=== PATIENT | male | born 1960 | race Caucasian/White ===

== ENCOUNTER 2020-06-27 01:47 | Outpatient (CLI) | payer BC, SELFPAY ==
[2020-06-28 12:53] LABS: COVID-19 RT-PCR UVMMC Result Negative (Negative)
== END 2020-06-27 01:48 | disposition home or self-care (01) ==
LOC: LBO 01:49
DX: Z20.822 Contact with and (suspected) exposure to COVID-19 (principal)
CPT/HCPCS: U0003

== ENCOUNTER 2021-04-24 03:08 | Outpatient (CLI) | payer BC, SELFPAY ==
[2021-04-24 10:15] LABS: ALT 30 U/L (16-63); AST 22 U/L (15-37); Albumin 3.3 g/dL (3.4-5.0); Alkaline Phosphatase 81 U/L (46-116); Anion Gap 13.6 mmol/L (3-11); BUN 11 mg/dL (7-18); Bilirubin, Total 0.6 mg/dL (0.2-1.0); CO2 25.4 mmol/L (21.0-32.0); CREATININE 0.8 mg/dL (0.70-1.30); Calcium 8.5 mg/dL (8.5-10.1); Calculated LDL 54 mg/dL (<100); Chloride 101 mmol/L (98-107); Cholesterol 121 mg/dL (<200); Glucose 101 mg/dL (74-106); HDL Cholesterol 55 mg/dL (40-60); Potassium 3.8 mmol/L (3.5-5.1); Sodium 140 mmol/L (136-145); Total Protein 7.2 g/dL (6.4-8.2); Triglyceride 61 mg/dL (<150)
== END 2021-04-24 03:09 | disposition home or self-care (01) ==
LOC: LBO 03:09
DX: Z13.220 Encounter for screening for lipoid disorders (principal); Z00.00 Encounter for general adult medical examination without abnormal findings
CPT/HCPCS: 36415; 80053; 80061

== ENCOUNTER 2022-03-10 11:21 | Day surgery (SDC) | payer BC, SELFPAY ==
--- NOTE | 2022-03-09 21:08 | W.PM.DSUDISC ---
Date of service: 03/10/22 Time of Service: 13:32 Discharge Plan Disposition Patient Disposition: Home Condition: Good Discharge Details Reason For Visit: Screening colonoscopy Attending Provider: Damion Mcwilliams Primary Care Provider: Melvin Weldon Home Meds and New Rx's Prescriptions: Discontinued bisacodyl [Dulcolax (bisacodyl)] 5 mg tablet,delayed release (DR/EC) 5 mg PO ONCE Qty: 4 0RF Rx Instructions: Take according to provider's instructions for colonoscopy prep. polyethylene glycol 3350 17 gram/dose powder 17 g PO ONCE Qty: 238 0RF Rx Instructions: To be taken as directed by prescriber's office for colonoscopy prep. No Action No Known Home Meds Discharge Instructions Additional Instructions: 1. If tolerated, consume a soft, low fiber diet for 1-2 days. 2[address] Do not drive, drink alcohol, operate machinery, make critical decisions, or do activities that require coordination or balance for 24 hours. 3. Because air was put into your colon during the procedure, expelling air from your rectum (passing gas or farting) is normal. 4. You may not have a bowel movement for 1-3 days because of the colonoscopy prep. This is normal. 5. Go directly to the emergency room if you notice any of the following: Develop chills (warm to touch), or if you have a thermometer and your temperature is above 101 Difficulty breathing or difficultly swallowing Persistent vomiting Severe abdominal pain, other than gas cramps Severe chest pain Black, tarry stools Any bleeding ? exceeding one tablespoon 6. Call your physician if the site where your intravenous was started becomes red, swollen, painful, and warm to touch. 7. Your physician has reviewed your pre-procedure medications. Please continue to take those medications as previously ordered. You will be given specific information/education regarding any changes to your medications before leaving. Activity:: Activity as Tolerated Diet:: As Tolerated Discharge Orders Discharge Orders: Discharge Order (Routine); Ordered 03/09/22 Ordered By: Damion Mcwilliams DS: Diagnosis Discharge Diagnosis (1) Colon cancer screening: Status: Acute Asessment and Plan: Your colonoscopy was normal. I recommend a follow-up colonoscopy in 5 years because of the family history of colon cancer.
--- NOTE | 2022-03-09 21:12 | COLE_ITS ---
Date of service: 03/10/22 Time of Service: 13:33 Colonoscopy Report Date of procedure: 03/10/22 Pre-op diagnosis general: screening colonoscopy Post-op diagnosis procedure note: same Procedure: Colonoscopy Surgeon: Damion Mcwilliams Anesthesia Type: General:No Airway Estimated blood loss (mL): 0 Pathology: none sent Complications: None Disposition: same day Indications: Warren is a 61-year-old male whose father was diagnosed with colon cancer. He is here for his first screening colonoscopy. Prep: Miralax/Dulcolax Procedure Start Time: 13:08 Procedure End Time: 13:20 Retraction Time: 9 Findings: Normal colonoscopy Procedure Description: After the induction of monitored anesthetic care, and with the patient in left lateral decubitus position, I began by performing an external anorectal exam.? Perineum and skin were normal, as was the anal verge.? There was no evidence of external hemorrhoids.? Next, I performed a digital rectal exam.? I did not appreciate any abnormal findings.? Next, I advanced a colonoscope into the re ctal vault.? I performed retroflexion.? There were mild grade 1 internal hemorrhoids.? Using insufflation, I then advanced the colonoscope beyond the rectal folds and into the sigmoid colon before advancing towards the cecum.? The quality of the prep was excellent.? The scope was noted to be in the cecum by identification of the ileocecal valve and appendiceal orifice.? I then began withdrawing the colonoscope using repeated irrigation as necessary for full evaluation of the colonic mucosa. ?Once the scope was withdrawn to the level of the rectum, great care was taken to examine portions of the rectal folds.? I did not see any evidence of any colon polyps or any other abnormalities. Finally, the scope was withdrawn and the patient was brought to the same-day surgery recovery unit as the anesthetic wore off. ?The findings and instructions were shared with the patient prior to discharge. Based on his first-degree relative with colon cancer, I recommend a follow-up colonoscopy in 5 years.
[2022-03-10 12:19] VITALS: BP 138/75; PULSE 94; RESP 16; TEMP 36.4; O2SAT 97
[2022-03-10] MEDS: Lactated Ringers 1,000 ML 80 ML IV (12:50)
--- NOTE | 2022-03-10 12:56 | W.ANESPRE ---
General Info Date of Service Date Performed: 03/10/22 Height: 5 ft 8 in Weight: 74.7 kg Body Mass Index (BMI): 25.0 Surgical Procedure: Operation Date: 03/10/22 12:50 Proposed Procedure Side Surgeon makayla Mcwilliams MD Meds Allergies and Home Medications Allergies Allergy/AdvReac Type Severity Reaction Status Date / Time Penicillins Allergy Intermediate Other (See Verified 03/10/22 12:17 Comment) Home Medication Medication Instructions Recorded Unknown [No Known Home Meds] 03/10/22 Current Visit Medications: Current Medications Generic Name Dose Route Start Last Admin Trade Name Freq PRN Reason Stop Dose Admin Hyoscyamine Sulfate 0.125 mg 03/09/22 21:15 Hyoscyamine 0.125 Mg Sl/Oral/Chew SL DIRECTED PRN Ringer's Solution 1,000 mls @ 80 mls/hr 03/10/22 06:00 03/10/22 12:50 IV 04/08/22 23:59 80 mls/hr INFUSION LILIAM Administration IV Miscellaneous Supplies 1 each 03/10/22 06:00 Iv Access IV 04/08/22 23:59 DIRECTED LILIAM Ondansetron HCl 4 mg 03/09/22 21:15 Ondansetron 4 Mg/2 Ml Vial IVP Q4H PRN PRN Nausea / Vomiting Sodium Chloride 0 ml 03/10/22 06:00 Normal Saline Flush 10 Ml Syr IV 04/08/22 23:59 PRN PRN Sodium Chloride 0 ml 03/10/22 06:00 Normal Saline 10 Ml Vial IJ 04/08/22 23:59 DIRECTED PRN Sterile Water 0 ml 03/10/22 06:00 Water,Injection,Sterile 10 Ml Vial IJ 04/08/22 23:59 DIRECTED PRN PFSH Active Problems Active Problems: Problem Status Onset Code Annual physical exam Z00.00 Screening cholesterol level Z13.220 Colon cancer screening Z12.11 Psoriasis L40.9 Nicotine dependence F17.200 Impacted cerumen of left ear H61.22 Allergic rhinitis J30.9 Tobacco use disorder F17.200 Psoriasis 10/21/15 L40.9 Family history of colon cancer Z80.0 Medical History Medical History Impacted cerumen of right ear (07/25/16) Psoriasis Tobacco Smoking/Tobacco Use Status: Current every day Tobacco Type: cigarettes Alcohol Alcohol Intake: current Alcohol intake frequency: 0-2 drinks per day Alcohol type: hard liquor Substance Use Substance use: Never Substance use type: does not use Vital Signs and Lab Results Vital Signs Most Recent Vital Signs in EMR: Most Recent Vital Signs Temp Pulse Resp BP Pulse Ox 36.4 C L 94 H 16 138/75 97 03/10/22 12:19 03/10/22 12:19 03/10/22 12:19 03/10/22 12:19 03/10/22 12:19 Lab Results Blood Type / Crossmatch: No Data to Display Complete Blood Count: No Data to Display Complete Metabolic Panel: No Data to Display Liver Function Panel: No Data to Display Coagulation Panel: No Data to Display Cardiac Panel: No Data to Display Arterial Blood Gas: No Data to Display Venous Blood Gas: No Data to Display Pancreas Panel: No Data to Display Thyroid Panel: No Data to Display Infectious Disease: No Data to Display Blood Cultures: No Data to Display Toxicology Panel: No Data to Display Anesthesia Assessment and Plan Anesthesia History Personal History: No History of General Anesthesia Family History: No Family History of Anesthesia Complications Exercise Tolerance Exercise Tolerance: Metabolic Equivalents>4 Pertinent Negatives Pertinent Negatives: No Symptoms of GERD, No Major Cardiovascular Symptoms or Complaints, No Major Pulmonary Symptoms or Complaints and No History of CVA/TIA Cardiac & Pulmonary Exam Cardiac Exam: Normal S1/S2 Heart Sounds Pulmonary Exam: Clear Bilateral Breath Sounds Implantable Cardiac Device Does patient have a Pacemaker or an ICD?: No Airway Exam Known Difficult Airway: No Mallampati Class: 2 Mouth Opening: Normal (> 3cm) Thyromental Distance: Greater than 3 cm Neck Range of Motion: Full ROM Neck Circumference: Normal Teeth Condition: Normal Dentition ASA Classification ASA Score: ASA 2 Emergency Case?: No NPO Status NPO Status: NPO Clears >2 hours, Solids >8 hours Anesthesia Plan Resuscitation Status: Full Code Anesthesia Technique: General Anesthesia Airway Planned: Natural Airway Monitors Used: Standard Monitors
[2022-03-10 12:58] VITALS: BMI 25.0
[2022-03-10 13:30] VITALS: BP 133/80; PULSE 90; RESP 16; TEMP 36.1; O2SAT 99
--- NOTE | 2022-03-10 13:30 | W.ANESPOSTOP ---
Postoperative Evaluation Date, Time and Location Date Performed: 03/10/22 Time Performed: 13:31 Patient Location: Day Surgery Unit Vital Signs Most Recent Imported Vital Signs: Most Recent Vital Signs Temp Pulse Resp BP Pulse Ox 36.4 C L 94 H 16 138/75 97 03/10/22 12:19 03/10/22 12:19 03/10/22 12:19 03/10/22 12:19 03/10/22 12:19 Most Recent Manually Entered Vital Signs: Adult Blood Pressure: 133/60 Heart Rate: 89 Respirations: 12 Oxygen Saturation (%): 98 Temperature (C): 36.4 C Pain Score (0-10 Scale): 0 Pain Score Most Recent Pain Score: Most Recent Pain Score Pain Level 0 03/10/22 12:19 Assessment Mental Status: Awake (Alert & Oriented to Patient Baseline) Airway and Respiratory Function: Patent airway with normal (patient baseline) respiratory exam Cardiovascular Function: Hemodynamically Stable Hydration Status: Adequately Hydrated Nausea & Vomiting: No Nausea or Vomiting Pain: Pt. Denies Any Pain Peripheral Nerve Block: Patient did not receive a nerve block
[2022-03-10 13:31] VITALS: BP 133/60; PULSE 89; RESP 12; TEMPC 36.4; O2SAT 98
[2022-03-10 14:00] VITALS: BP 133/71; PULSE 79; RESP 16; TEMP 36.3; O2SAT 98
== END 2022-03-10 14:08 | disposition home or self-care (01) ==
LOC: SUR 11:21
PROVIDERS: PCP Nurse Practitioner Family; Visit Provider Surgery
PROC: 0DJD8ZZ Inspection of Lower Intestinal Tract, Via Natural or Artificial Opening Endoscopic (ICD-10-PCS; CPT 45378; principal; 2022-03-10 12:45)
DX: Z12.11 Encounter for screening for malignant neoplasm of colon (principal); Z80.0 Family history of malignant neoplasm of digestive organs
CPT/HCPCS: 45378

== ENCOUNTER 2023-05-26 04:44 | Outpatient (CLI) | payer BC, SELFPAY ==
[2023-05-28 11:22] LABS: TB Interpretation Negative (Negative)
== END 2023-05-26 04:45 | disposition home or self-care (01) ==
PROVIDERS: PCP Nurse Practitioner Family; Visit Provider Dermatology
DX: L40.0 Psoriasis vulgaris (principal); Z79.899 Other long term (current) drug therapy; Z11.1 Encounter for screening for respiratory tuberculosis
CPT/HCPCS: 36415; 86480

== ENCOUNTER 2024-02-08 11:04 | Outpatient (CLI) | payer BC, SELFPAY ==
[2024-02-08 10:02] LABS: Abs Immature Grans 0.04 10^3/uL (0.0-0.06); HCT 40.2 % (40.0-50.0); MCH 31.7 pg (27.0-33.0); MCHC 32.3 % (32.0-36.0); MCV 98 fL (80-95); MPV 9.3 fL (8.0-11.0); RDW 13.8 % (11.8-14.1); RDW-SD 49.8 fL; WBC 7.22 10^3/uL (4.4-10.8)
[2024-02-08 10:36] LABS: Absolute Lymphocyte Count 1.23 10^3/uL (1.2-3.4); Absolute Neutrophil Count 4.69 10^3/uL (1.2-6.7); Atypical Lymphocytes % 0 %; Diff Comment Manual Differential
[2024-02-08 10:37] LABS: Platelet Count 83 10^3/uL (130-400)
[2024-02-08 10:43] LABS: D-Dimer 616 ng/mlFEU (<500)
== END 2024-02-08 11:05 | disposition home or self-care (01) ==
LOC: LBO 11:04
PROVIDERS: PCP Nurse Practitioner Family; Visit Provider Nurse Practitioner Family
DX: M79.89 Other specified soft tissue disorders (principal)
CPT/HCPCS: 36415; 85025; 85379

== ENCOUNTER 2024-02-23 10:27 | Outpatient (CLI) | payer BC, SELFPAY ==
[2024-02-23 09:31] LABS: Abs Immature Grans 0.02 10^3/uL (0.0-0.06); Absolute Basophil Count 0.05 10^3/uL (0.0-0.2); Absolute Eosinophil Count 0.12 10^3/uL (0.0-0.7); Absolute Lymphocyte Count 1.24 10^3/uL (1.2-3.4); Absolute Monocyte Count 0.94 10^3/uL (0.1-0.8); Absolute Neutrophil Count 2.76 10^3/uL (1.2-6.7); Eosinophils % 2.3 %; HGB 12.5 g/dL (13.5-17.5); Immature Grans % 0.4 %; Lymphocytes % 24.2 %; MCHC 31.3 % (32.0-36.0); MCV 99 fL (80-95); MPV 9.1 fL (8.0-11.0); Monocytes % 18.3 %; Neutrophils % 53.8 %; Platelet Count 129 10^3/uL (130-400); RBC 4.03 10^6/uL (4.36-5.78); RDW 14.4 % (11.8-14.1); RDW-SD 52.7 fL; WBC 5.13 10^3/uL (4.4-10.8)
== END 2024-02-23 10:28 | disposition home or self-care (01) ==
LOC: LBO 10:27
PROVIDERS: PCP Nurse Practitioner Family; Visit Provider Nurse Practitioner Family
DX: M79.89 Other specified soft tissue disorders (principal)
CPT/HCPCS: 36415; 85025

== ENCOUNTER 2024-03-27 13:08 | Outpatient (CLI) | payer BC, SELFPAY ==
--- NOTE | 2024-03-27 13:00 | RT.EKG_ITS ---
APPROVED REPORT Exam: Resting ECG Reason for Exam: sob, Patient Location: O HR:96 bpm ECG Measurements Heart Rate 96 AXIS GA 171 P 74 QRSd 102 QRS 39 QT 355 T 60 QTc 449 Conclusion Sinus rhythm...normal P axis, V-rate 50- 99 Probable left atrial enlargement...P >50mS, <-0.10mV V1 Otherwise normal ECG
== END 2024-03-27 13:09 | disposition home or self-care (01) ==
PROVIDERS: PCP Nurse Practitioner Family; Visit Provider Nurse Practitioner Family
DX: R06.02 Shortness of breath (principal)
CPT/HCPCS: 93010

== ENCOUNTER 2024-03-27 13:54 | Outpatient (CLI) | payer BC, SELFPAY ==
[2024-03-27 14:27] LABS: Abs Immature Grans 0.02 10^3/uL (0.0-0.06); Absolute Basophil Count 0.03 10^3/uL (0.0-0.2); Absolute Eosinophil Count 0.04 10^3/uL (0.0-0.7); Absolute Monocyte Count 0.94 10^3/uL (0.1-0.8); Absolute Neutrophil Count 3.29 10^3/uL (1.2-6.7); Basophils % 0.6 %; Eosinophils % 0.8 %; HCT 39.5 % (40.0-50.0); HGB 12.3 g/dL (13.5-17.5); Immature Grans % 0.4 %; Lymphocytes % 15.6 %; MCH 29.6 pg (27.0-33.0); MCHC 31.1 % (32.0-36.0); MCV 95 fL (80-95); MPV 8.6 fL (8.0-11.0); Monocytes % 18.4 %; Neutrophils % 64.2 %; Platelet Count 109 10^3/uL (130-400); RBC 4.15 10^6/uL (4.36-5.78); RDW 14.2 % (11.8-14.1); RDW-SD 49.1 fL; WBC 5.12 10^3/uL (4.4-10.8)
[2024-03-27 14:47] LABS: Anion Gap 0.3 mmol/L (3-11); BUN 18 mg/dL (7-18); CO2 33.7 mmol/L (21.0-32.0); Calcium 9.5 mg/dL (8.5-10.1); Chloride 105 mmol/L (98-107); Estimated GFR 85.63 (mL/min/1.73m2); Glucose 105 mg/dL (74-106); NT-proBNP 152 pg/mL (<300); Potassium 4.3 mmol/L (3.5-5.1); Sodium 139 mmol/L (136-145)
== END 2024-03-27 13:55 | disposition home or self-care (01) ==
LOC: LBO 13:54
PROVIDERS: PCP Nurse Practitioner Family; Visit Provider Nurse Practitioner Family
DX: R06.00 Dyspnea, unspecified (principal)
CPT/HCPCS: 36415; 80048; 83880; 85025

== ENCOUNTER 2024-03-27 14:58 | Outpatient (CLI) | payer BC, SELFPAY ==
--- NOTE | 2024-03-27 13:15 | DI.RAD_ITS ---
Exam(s) XR CHEST 2V PA LATERAL EXAM: XR CHEST 2V PA LATERAL CLINICAL HISTORY: increased SOB, edema, dyspnea, R06.00 TECHNIQUE: 2D digital imaging was performed of the chest. Two images were obtained. PA and lateral views were obtained. COMPARISON: CR CHEST 2 VIEWS PA,LAT from 09/05/2007 FINDINGS: MEDIASTINUM: Normal. HEART: Normal. PULMONARY VASCULATURE: Normal. LUNGS: The lungs are hyperinflated suggesting underlying COPD. No focal consolidating infiltrates ar e present. PLEURAL SPACE: No pleural effusion or pneumothorax. BONE:Within normal limits for the patient's age. OTHER FINDINGS:Normal. IMPRESSION: No acute pulmonary findings. DATA REPOSITORY: RADIATION DOSE DELIVERED:
== END 2024-03-27 15:18 ==
LOC: DI 14:58
PROVIDERS: PCP Nurse Practitioner Family; Visit Provider Nurse Practitioner Family
DX: R06.00 Dyspnea, unspecified (principal)
CPT/HCPCS: 71046

== ENCOUNTER 2024-04-16 14:51 | Emergency (ER) | payer BC, SELFPAY ==
[2024-04-16] VITALS (7 sets, daily range): BP systolic 172; BP diastolic 73; PULSE 89–99; RESP 16; TEMP 36.6; O2SAT 88–94
--- NOTE | 2024-04-16 15:15 | ED.GENADUL_ITS ---
Discharge Plan Disposition Patient Disposition: Home Condition: Stable Discharge Details Clinical Impression: Hematuria, Cellulitis of leg, right Primary Care Provider: Melvin Weldon ED Provider: Martin Aquino Home Meds and New Rx's Prescriptions: New prednisone 20 mg tablet 60 mg PO DAILY 5 Days Qty: 15 0RF clindamycin HCl 150 mg capsule 450 mg PO TID 7 Days Qty: 63 0RF Continued sildenafil [Viagra] 50 mg tablet 50 mg PO DAILY PRN (Reason: sexual activity) Qty: 10 0RF Rx Instructions: administer 30 minutes to 4 hours before activity Humira 40 mg/0.8 mL syringe kit 40 mg subcut Q2W albuterol sulfate 90 mcg/actuation HFA aerosol inhaler 2 inh inhalation Q6H PRN (Reason: shortness of breath or wheezing) Qty: 18 0RF Discharge Instructions Additional Instructions: You are being treated for a leg infection. He also had blood in your urine. Follow-up as scheduled with your PCP on Wednesday. You should have a follow-up urinalysis and if you continue to have blood in your urine you should discuss being referred to urologist If you feel more ill, have severe worsening pain or high fevers return to the emergency department for reevaluation HPI General Mode of arrival: ambulatory . Date/Time Provider Initiated Documentation: 04/16/24 14:53 . Limitations to Documentation: no limitations . Information obtained by: patient . History of Present Illness 63 year old M presents to the emergency department with the chief complaint of right leg swelling,redness, described as moderate, Patient started experiencing this day(s) (1) and it has been constant. No relieving factors improve symptom(s), No exacerbating factors reported . Patient notes denies fever/chills and shortness of breath. Patient did receive the following t reatments prior to arrival, none Related Data Home Medications ?Medication ?Instructions ?Recorded ?Confirmed adalimumab 40 mg/0.8 mL 40 mg subcut Q2W 01/15/23 04/16/24 subcutaneous syringe kit (Humira) sildenafil 50 mg tablet (Viagra) 50 mg PO DAILY PRN sexual activity 05/19/23 04/16/24 #10 tabs albuterol sulfate 90 mcg/actuation 2 inh inhalation Q6H PRN shortness 03/27/24 04/16/24 aerosol inhaler of breath or wheezing #18 grams clindamycin HCl 150 mg capsule 450 mg (3 x 150 mg) PO TID 7 days 04/16/24 #63 caps prednisone 20 mg tablet 60 mg (3 x 20 mg) PO DAILY 5 days 04/16/24 #15 tabs Previous Rx's ?Medication ?Instructions ?Recorded sildenafil 50 mg tablet (Viagra) 50 mg PO DAILY PRN sexual activity 05/19/23 #10 tabs albuterol sulfate 90 mcg/actuation 2 inh inhalation Q6H PRN shortness 03/27/24 aerosol inhaler of breath or wheezing #18 grams clindamycin HCl 150 mg capsule 450 mg (3 x 150 mg) PO TID 7 days 04/16/24 #63 caps prednisone 20 mg tablet 60 mg (3 x 20 mg) PO DAILY 5 days 04/16/24 #15 tabs Allergies Allergy/AdvReac Type Severity Reaction Status Date / Time Penicillins Allergy Intermediate Other (See Verified 04/16/24 14:58 Comment) General Stated Complaint: Cellulitis ROMELIA: 3 Review of Systems All systems reviewed & are unremarkable except as noted in HPI and below Constitutional Constitutional: Denies chills, Denies fever(s) and Denies weakness Cardiovascular Cardiovascular: Denies chest pain and Denies dyspnea Respiratory Respiratory: Denies cough and Denies dyspnea Gastrointestinal Gastrointestinal: Denies abdominal pain, Denies nausea and Denies vomiting Integumentary/Breasts Skin/Breast: Reports rash Neurologic Neurologic: Denies weakness Exam Const General: no acute distress Orientation: alert [facility] Head: normal to inspection Ears: external ears normal General nose exam: external nose normal Mouth: moist mucous membranes Eyes General: appearance normal, both eyes and all related structures Neck Neck: normal visual inspection Resp Effort & Inspection: normal respiratory effort and able to speak in complete sentences Cardio Rate: regular rate Skin General skin exam: no rashes or lesions noted and erythema Neuro General: patient alert and patient oriented x3 Extrem General: full ROM and no calf tenderness bilaterally Psych Mental Status: mental status grossly normal Course Vital Signs Vital signs: Vital Signs Temperature 36.6 C 04/16/24 14:59 Pulse 95 H 04/16/24 14:59 Respiratory Rate 16 04/16/24 14:59 Blood Pressure 172/73 H 04/16/24 14:59 Pulse Oximetry 88 L 04/16/24 14:59 Temperature 36.6 C 04/16/24 14:59 Temperature Source Oral 04/16/24 14:59 Pulse 95 H 04/16/24 14:59 Respiratory Rate 16 04/16/24 14:59 Blood Pressure 172/73 H 04/16/24 14:59 Pulse Oximetry 88 L 04/16/24 14:59 Pain Level 7 04/16/24 14:59 Medical Decision Making 63-year-old male with a history of psoriasis on Humira comes in with right lower leg redness and swelling. He says he was treated for something similar in January, had a negative DVT study at that time and he states he was placed on antibiotics and steroids which resolved the issue. The leg started swelling and having redness yesterday. He denies any fevers or severe pain in his right lower extremity distal to the knee is. Swollen. There is no crepitus or tenderness. He does have some scabs that he is not sure how they occurred. It is warm on the anterior part of the leg compared to the left. He has no calf tenderness. He has intact distal sensation. I suspect he does have a cellulitis in his likely from scabs he has on his leg. I advised he should try and protect his legs more to prevent this from happening. Given the negative DVT study in January with similar leg findings I doubt DVT and do not feel repeat DVT study indicated. In triage he was noted to be 88% but he denies any shortness of breath and is 94% on my exam and has clear lung sounds do not feel any lung imaging indicated. I will start him on Augmentin and prednisone. He also notes that he been having some intermittent bloody urine, no CVA tenderness or abdominal tenderness. Will check UA. Given lack of flank pain doubt kidney stones. Urine does show hematuria. Patient has no urinary symptoms without UTI. Discussed results with him and he says he has follow-up Wednesday with his PCP. I recommended him to have a repeat UA and if this continues discuss being referred to urology for possible cystoscopy. He is stable for discharge, return precautions given Differential Diagnosis Differential Diagnosis: Cellulitis, UTI Quality:SDOH Health Related Social Needs: Health related social needs details N/A PFSH All Active Problems (Updated 04/16/24 @ 16:05 by Martin Aquino MD) Cellulitis of leg, right (Acute) Hematuria (Acute) Edema (Acute) Dyspnea (Acute) Right leg swelling (Acute) Erectile dysfunction (Acute) Nail dystrophy (Acute) Pincer nail deformity (Acute) Annual physical exam (Acute) Screening cholesterol level (Acute) Colon cancer screening (Acute) Psoriasis (Chronic) Nicotine dependence (Acute) Impacted cerumen of left ear (Acute) Allergic rhinitis (Acute) Tobacco use disorder (Acute) Psoriasis (Chronic 10/21/15) Family history of colon cancer (Acute) Medical History Psoriasis Impacted cerumen of right ear (10/14/15) Family History Mother Diabetes Father Neoplasm PROSTATE Sister Neoplasm BREAST Daughter No problems noted. 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 Pets and animals: No Sexually active: Yes Do you think of yourself as: straight/heterosexual Current gender identity: male What is your relationship status?: refused to answer How often do you talk on the phone with friends or family?: three or more times per week How often do you get together with friends or relatives?: once per week How often do you attend zoroastrian or christianity services?: decline to answer Do you belong to any clubs or organized social groups?: no Panel score (0-1 are the most socially isolated patients): 1 What type of physical activity do you participate in: none Frequency: does not exercise Jeanna/Yazdanism: None Special jeanna needs: No Seatbelt use: always Helmet use: Yes Helmet use: always Drive intox or ride w/intox crew car driver: No Do you feel safe at home: Yes Additional Social history: lives alone PAWSS Have you Been Recently Intoxicated or Drunk Within the Last 30 days?: No Have you Ever Experienced Previous Episodes of Alcohol Withdrawal?: No Have you ever Experienced Withdrawal Seizures?: No Have you ever Experienced Delirium Tremens(DT)s?: No Have you ever undergone Alcohol Rehabilitation Treatment (i.e, inpt ot outpatient treatment programs)?: No Have you ever Experienced Blackouts?: No Have you ever Combined Alcohol with other Downers within the last 90 days?: No Have you ever Combined Alcohol with any other Substance of Abuse during the last 90 days?: No Positive Blood Alcohol level on Presentation? [PCS.BAL]: No Evidence of Increased Autonomic Activity (i.e. HR>120, tremor, sweating, agitation, nausea)?: No Result: 0
--- OUTSIDE RECORDS SUMMARY | 2024-04-16 15:27 | XMS_ITS | Encounter Summary ---
[place] [address] Care Team Providers Care Production Or Plant Engineer Name Role Phone Melvin De León DNP Primary Care Provider [phone] Encounter Details Date Type Department Care Team (Latest Contact Info) Description 11/12/2023 Travel Social History Tobacco Use Types Packs/Day Years Used Date Smoking Tobacco: Every Day Sex and Gender Information Value Date Recorded Sex Assigned at Not on file Gender Identity Not on file Sexual Orientation Not on file documented as of this encounter Plan of Treatment Upcoming Encounters Date Type Department Care Team (Late st Contact Info) Description 05/19/2024 3:45 PM EST Office Visit Dermatology at [place] [address] [facility] [place] [phone] Jordan Arias MD [address] [facility], [place] [address] documented as of this encounter Visit Diagnoses Not on filedocumented in this encounter Care Teams Production Or Plant Engineer Relationship Specialty Start Date End Date Melvin De León DNP [address] [place] [address] PCP - General Family Medicine 10/29/22 documented as of this encounter
--- OUTSIDE RECORDS SUMMARY | 2024-04-16 15:27 | XMS_ITS | Encounter Summary ---
[place] [address] Care Team Providers Care Experimental Machining Lab Manager Name Role Phone Melvin De León DNP Primary Care Provider [phone] Encounter Details Date Type Department Care Team (Latest Contact Info) Description 01/29/2023 Travel Social History Tobacco Use Types Packs/Day [...] 3:45 PM EST Office Visit Dermatology at [place] [address] [facility] [place] [phone] Jordan Arias MD [address] [facility], [place] [address] documented as of this encounter Visit Diagnoses Not on filedocumented in this encounter Care Teams Experimental Machining Lab Manager Relationship Specialty Start Date End Date Melvin De León DNP [address] [facility] [place] [address] PCP - General Family Medicine 10/29/22 documented as of this encounter
--- OUTSIDE RECORDS SUMMARY | 2024-04-16 15:27 | XMS_ITS | Encounter Summary ---
[place] [address] Care Team Providers Care Business Editor Name Role Phone Melvin De León DNP Primary Care Provider Encounter Details Date Type Department Care Team (Late st Contact Info) Description 11/12/2023 Refill Dermatology at [address] [phone] Mandi Velazquez RN Social History Tobacco Use Types Packs/Day Years [...] 3:45 PM EST Office Visit Dermatology at [address] [phone] Jordan Arias MD [address] [place] [address], [facility] [place], [place] [id number] documented as of this encounter Visit Diagnoses Not on filedocumented in this encounter Care Teams Business Editor Relationship Specialty Start Date End Date Melvin De León DNP [address] [place] [address] [place] [phone] PCP - General Family Medicine 10/29/22 documented as of this encounter
--- OUTSIDE RECORDS SUMMARY | 2024-04-16 15:27 | XMS_ITS | Encounter Summary ---
[place] [address] Care Team Providers Care Commercial Real Estate Attorney Name Role Phone Melvin De León DNP Primary Care Provider Encounter Details Date Type Department Care Team (Late st Contact Info) Description 04/30/2023 Refill Dermatology at [address] [phone] Mandi Velazquez RN Social History [...] 3:45 PM EST Office Visit Dermatology at [address] [phone] Jordan Arias MD [address] [place] [address], [facility] [place], [place] [phone] documented as of this encounter Visit Diagnoses Not on filedocumented in this encounter Care Teams Commercial Real Estate Attorney Relationship Specialty Start Date End Date Melvin De León DNP [address] [place] [address] [place] [phone] PCP - General Family Medicine 10/29/22 documented as of this encounter
--- OUTSIDE RECORDS SUMMARY | 2024-04-16 15:27 | XMS_ITS | Encounter Summary ---
Author Organization [facility] Address [facility] [place] [address] Care Team Providers Care Senior Military Analyst Name Role Phone Melvin De León DNP Primary Care Provider [phone] Reason for Visit * Reason Comments Follow-up Encounter Details Date Type Department Care Team (Late st Contact Info) Description 01/29/2023 4:00 PM EST Office Visit Dermatology at [address] [phone] Jordan Arias MD [address], [place] [address] Psoriasis Social History Tobacco Use Types Packs/Day Years Used Date Smoking Tobacco: Every Day Sex and Gender Information Value Date Recorded Sex Assigned at Not on file Gender Identity Not on file Sexual Orientation Not on file documented as of this encounter Progress Notes * Jordan Arias MD - 01/29/2023 4:00 PM EST Problem: 1. On Humira since October 2022, 3-month check 2. History of psoriasis previously treated with methotrexate 3. History of psoriasiform drug reaction secondary to penicillin 4. History of psoriasis in his mother 5. Resolving acute flare of psoriasis after April 22, 2021 visit 6. Patient currently drinks 3 mixed drinks in the evenings. Warren follows up for 3-month check on his psoriasis. He has been utilizing the Humira. He is on Humira but it is not clearing his psoriasis. He is seen perhaps a 50% improvement. He has not had any injection site reactions fevers or infections. Physical examination reveals a pleasant 62-year-old gentleman who has still has active psoriasis. He has thin plaques widely over his lower back and some excoriated areas on his legs on the anterior shins bilaterally.. His skin is diffusely dry. He states he has been giving himself the Humira and Ireally just every 2-week basis. Assessment and plan: Psoriasis 1. Continue Humira for another 3 months then return to clinic. Renew Humira 40 mg / 0.4 mL citrate free pen inject 1 pen subcutaneously every 14 days. Dispense 2 pens with 3 refills. 2. Continue applications of triamcinolone 0.1% cream applying to affected areas on a twice daily basis. 3. At time of return visit if not seeing significant improvement will consider another dispense 1 pound jar with 2 refills. If not improving at that time would recommend that we consider another biologic. CC: Melvin De León DNP documented in this encounter Plan of Treatment Upcoming Encounters Date Type Department Care Team (Late st Contact Info) Description 05/19/2024 3:45 PM EST Office Visit Dermatology at [place] [address] [place] [address] Jordan Arias MD 580 [facility], [facility] [place] [address] documented as of this encounter Visit Diagnoses Diagnosis Psoriasis Other psoriasis documented in this encounter Care Teams Senior Military Analyst Relationship Specialty Start Date End Date Melvin De León DNP [address] [place] [address] PCP - General Family Medicine 10/29/22 documented as of this encounter
--- OUTSIDE RECORDS SUMMARY | 2024-04-16 15:27 | XMS_ITS | Encounter Summary ---
[place] [address] Care Team Providers Care Manufacturing Weaver Name Role Phone Melvin De León DNP Primary Care Provider [phone] Encounter Details Date Type Department Care Team (Latest Contact Info) Description 04/30/2023 Travel Social History Tobacco Use Types Packs/Day [...] 3:45 PM EST Office Visit Dermatology at [place] 580 [facility] [place] [phone] Jordan Arias MD 580 [facility], [place] [address] documented as of this encounter Visit Diagnoses Not on filedocumented in this encounter Care Teams Manufacturing Weaver Relationship Specialty Start Date End Date Melvin De León DNP [address] [place] [address] PCP - General Family Medicine 10/29/22 documented as of this encounter
--- OUTSIDE RECORDS SUMMARY | 2024-04-16 15:27 | XMS_ITS | Encounter Summary ---
[place] [address] Care Team Providers Care Business Development Recruiter Name Role Phone Melvin De León DNP Primary Care Provider Encounter Details Date Type Department Care Team (Late st Contact Info) Description 11/12/2023 Refill Dermatology at [address] [phone] Mandi Velazquez RN Social History [...] 3:45 PM EST Office Visit Dermatology at [address] [phone] Jordan Arias MD [address] [place] [address], DAVID A DERMATOLOGY [place], [place] [id number] documented as of this encounter Visit Diagnoses Not on filedocumented in this encounter Care Teams Business Development Recruiter Relationship Specialty Start Date End Date Melvin De León DNP [address] [place] [address] [place], [place] [id number] PCP - General Family Medicine 10/29/22 documented as of this encounter
--- OUTSIDE RECORDS SUMMARY | 2024-04-16 15:27 | XMS_ITS | Encounter Summary ---
Author Organization [facility] [place] [address] Care Team Providers Care Fence Setter Name Role Phone Melvin De León DNP Primary Care Provider Encounter Details Date Type Department Care Team (Late Contact Info) Description 11/20/2022 Telephone Dermatology at [address] [phone] Mandi Velazquez RN Social History Tobacco Use Types Packs/Day Years Used Date Smoking Tobacco: Every Day Sex and Gender Information Value Date Recorded Sex Assigned at Not on file Gender Identity Not on file Sexual Orientation Not on file documented as of this encounter Miscellaneous Notes * Telephone Encounter - Mandi Velazquez RN - 11/20/2022 10:33 AM EDT Contacted patient today to inform him that in order for him to obtain a sharps container for his Kortney pens he would need to contact [facility] which is where he obtains his Kortney pens from. Patient provided with [employer] phone number [phone]. Patient stated that he understood and would contact them. documented in this encounter Plan of Treatment Upcoming Encounters Date Type Department Care Team (Late Contact Info) Description 05/19/2024 3:45 PM EST Office Visit Dermatology at [address] [phone] Jordan Arias MD 580 [facility], [place] [address] documented as of this encounter Visit Diagnoses Not on filedocumented in this encounter Care Teams Fence Setter Relationship Specialty Start Date End Date Melvin De León DNP [address] [place] [address] PCP - General Family Medicine 10/29/22 documented as of this encounter
--- OUTSIDE RECORDS SUMMARY | 2024-04-16 15:27 | XMS_ITS | Encounter Summary ---
[place] [address] Care Team Providers Care Community Relations Coordinator Name Role Phone Melvin De León DNP Primary Care Provider [phone] Reason for Visit * Reason Comments Medication Refill Encounter Details Date Type Department Care Team (Late st Contact Info) Description 04/13/2024 Refill Dermatology at [place] 580 [facility] [place] [address] Jordan Arias MD [address], BENNIE A DERMATOLOGY [place], [place] [phone] Social History Tobacco Use Types Packs/Day Years Used Date Smoking Tobacco: Every Day Sex and Gender Information Value Date Recorded Sex Assigned at Not on file Gender Identity Not on file Sexual Orientation Not on file documented as of this encounter Miscellaneous Notes * Telephone Encounter - Mandi Velazquez RN - 04/13/2024 8:53 AM EST Received request from [facility] for Kortney for patient. Contact patient and he stated that he has one pen left and he gave himself an injection on 04/11/2024. He stated he will not have enough of his medication to last him till his follow up appointment. Patient has follow up on 05/19/2024. Prescription Humira Pen 40mg/0.4ml pen injector kit. Inject 1 pen under the skin every 14 days. Dispense 1 kit (2pens) with 1 refill. This will cover the patient until his follow up appointment on 05/19/2024. documented in this encounter Plan of Treatment Upcoming Encounters Date Type Department Care Team (Late st Contact Info) Description 05/19/2024 3:45 PM EST Office Visit Dermatology at [place] [address] [facility] [place] [address] Jordan Arias MD [address], BENNIE Mark [place] [address] documented as of this encounter Visit Diagnoses Not on filedocumented in this encounter Care Teams Community Relations Coordinator Relationship Specialty Start Date End Date Melvin De León DNP [address] [place] [address] PCP - General Family Medicine 10/29/22 documented as of this encounter
--- OUTSIDE RECORDS SUMMARY | 2024-04-16 15:27 | XMS_ITS | Encounter Summary ---
Author Organization [facility] Address [facility] [place] [address] Care Team Providers Care Habilitation Worker Name Role Phone Melvin De León DNP Primary Care Provider [phone] Encounter Details Date Type Department Care Team (Late st Contact Info) Description 04/30/2023 3:45 PM EST Office Visit Dermatology at [address] [place] [phone] Jordan Arias MD [address] [address], [place] [address] Psoriasis Social History Tobacco Use Types Packs/Day Years Used Date Smoking Tobacco: Every Day Sex and Gender Information Value Date Recorded Sex Assigned at Not on file Gender Identity Not on file Sexual Orientation Not on file documented as of this encounter Progress Notes * Jordan Arias MD - 04/30/2023 3:45 PM EST Problem: 1. On Humira since October 2022, 3-month check 2. History of psoriasis previously treated with methotrexate 3. History of psoriasiform drug reaction secondary to penicillin 4. History of psoriasis in his mother 5. Resolving acute flare of psoriasis after April 22, 2021 visit 6. Patient currently drinks 3 mixed drinks in the evenings. Warren follows up for a 3-month check on his psoriasis. He has been doing much better. He continues on Humira injecting it religiously. He is seeing further improvement. Physical examination reveals a pleasant 62-year-old gentleman whose arms chest and back are clear. He still has some dry excoriated patches on the anterior shins bilaterally. However the upper torso is now clear in contrast to his last visit with me again number. Assessment plan: Psoriasis on Humira 1. Continue Humira injecting 40 mg / 0.4 mL citrate free pen subcutaneously once every 14 days. Dispense 2 pens with 5 refills 2. Continue applications of triamcinolone 01% cream apply to affected areas on the shins once twicedaily 3. Encouraged use of emollient therapy such as CeraVe cream for dry skin of the legs. 4. Today we will check TB QuantiFERON alpha test as part of renewing his Humira CC: Melvin De León DNP documented in this encounter Plan of Treatment Upcoming Encounters Date Type Department Care Team (Late st Contact Info) Description 05/19/2024 3:45 PM EST Office Visit Dermatology at [place] [address] [place] [address] Jordan Arias MD 580 [facility], [place] [address] documented as of this encounter Visit Diagnoses Diagnosis Psoriasis Other psoriasis documented in this encounter Care Teams Habilitation Worker Relationship Specialty Start Date End Date Melvin De León DNP [address] [place] [id number] PCP - General Family Medicine 10/29/22 documented as of this encounter
--- OUTSIDE RECORDS SUMMARY | 2024-04-16 15:27 | XMS_ITS | Encounter Summary ---
[place] [address] Care Team Providers Care Director Investment Banking Name Role Phone Melvin De León DNP Primary Care Provider Reason for Visit * Reason Comments Follow-up Encounter Details Date Type Department Care Team (Late st Contact Info) Description 11/12/2023 3:45 PM EDT Office Visit Dermatology at [address] [phone] Jordan Arias MD [address] [address], [place] [address] Psoriasis Social History Tobacco Use Types Packs/Day Years Used Date Smoking Tobacco: Every Day Sex and Gender Information Value Date Recorded Sex Assigned at Not on file Gender Identity Not on file Sexual Orientation Not on file documented as of this encounter Progress Notes * Jordan Arias MD - 11/12/2023 3:45 PM EDT Problem: 1. On Humira since October 2022, 3-month check 2. History of psoriasis previously treated with methotrexate 3. History of psoriasiform drug reaction secondary to penicillin 4. History of psoriasis in his mother 5. Resolving acute flare of psoriasis after April 22, 2021 visit 6. Patient currently drinks 3 mixed drinks in the evenings. Warren follows up for a 6-month check on his psoriasis. He has been doing well. His psoriasis is stable. He continues on Humira injecting it religiously once every 2 weeks into his stomach.. Physical examination reveals a pleasant 63-year-old gentleman whose arms chest and back are clear. He still has some dry excoriated patches on the anterior shins bilaterally. The upper torso is now clear for which he is very grateful. Assessment and plan: Psoriasis on Humira 1. Continue Humira injecting 40 mg / 0.4 mL citrate free pen subcutaneously once every 14 days. Dispense 2 pens with 5 refills 2. Discontinue triamcinolone cream and instead will begin betamethasone dipropionate cream apply once to twice daily to active areas on shins dispense 45 g with 5 refills. 3. Encouraged use of emollient therapy such as CeraVe cream for dry skin of the legs. 4. A TB QuantiFERON test was negative back in May of this year. 5. Return to clinic in 6 months for repeat check. CC: Melvin De León DNP documented in this encounter Plan of Treatment Upcoming Encounters Date Type Department Care Team (Late st Contact Info) Description 05/19/2024 3:45 PM EST Office Visit Dermatology at [place] 580 [facility] [place] [address] Jordan Arias MD 580 [facility], [place] [address] documented as of this encounter Visit Diagnoses Diagnosis Psoriasis Other psoriasis documented in this encounter Care Teams Director Investment Banking Relationship Specialty Start Date End Date Melvin De León DNP [address] [place] [address] PCP - General Family Medicine 10/29/22 documented as of this encounter
--- OUTSIDE RECORDS SUMMARY | 2024-04-16 15:27 | XMS_ITS | Encounter Summary ---
[place] [address] Care Team Providers Care Field Placement Director Name Role Phone Melvin De León DNP Primary Care Provider [phone] Reason for Visit * Reason Comments Prior Authorization Humira (2 PEN 0 40mg /0.4ml PNKT Encounter Details Date Type Department Care Team (Latest Contact Info) Description 10/25/2023 Specialty [place] [phone] Lulu Perez CPHT Started Prior Authorization (adalimumab) for Dermatology Social History Tobacco Use Types Packs/Day Years Used Date Smoking Tobacco: Every Day Sex and Gender Information Value Date Recorded Sex Assigned at Not on file Gender Identity Not on file Sexual Orientation Not on file documented as of this encounter Progress Notes * Lulu Perez CPHT - 10/25/2023 4:36 PM EDT [facility], Medication Prior Authorization Submission Patient: Warren Michael Patient : 1960 Patient Address: [address] [place] [phone] (home) Medication Name: HUMIRA(CF) PEN 40 MG/0.4 ML SUBCUTANEOUS KIT Medication ID: [id number] Subscriber Insurance: [employer] (ADV) Subscriber Insurance Comment: Fax: Physician: CARIDAD LEÓN Physician Comment: Sent Via: [facility] Irby: [id number] Ref/Case/PA#: [id number] Medication Strength Frequency Requested: Humira 40mg/0.4ml, INJECT 1 PEN UNDER THE SKIN EVERY 14 DAYS Qty/Day Supply: 05/19 New Start: Renewal Diagnosis & ICD-10 Code: Psoriasis L40.9 Patient Notified: No Submission Notes: None Lulu Perez CPHT 10/25/23 4:42 PM * Lulu Perez CPHT - 10/25/2023 4:36 PM EDT [facility], Prior Authorization Approval Medication Name: HUMIRA(CF) PEN 40 MG/0.4 ML SUBCUTANEOUS KIT Medication ID: [id number] Approval Dates: 10/25/2023 to 10/23/2024 Insurance requirements/notes: None Other Notes: None Case/Reference #: [id number] Approval notification Received via: Fax Copay: Copay assistance: Copay Notes: Insurance mandated Pharmacy: [facility] Specialty Fillable at [facility]: No Patient Notified: No Pharmacy staff will be reaching out to the patient to inform them of their medication's [facility]. If applicable, a pharmacist will speak with the patient to offer our specialty pharmacy services and to arrange delivery of their medication. Lulu Perez CPHT 10/27/23 8:56 AM documented in this encounter Plan of Treatment Upcoming Encounters Date Type Department Care Team (Late st Contact Info) Description 05/19/2024 3:45 PM EST Office Visit Dermatology at [address] [place] [address] Caridad León MD [address] [facility] [address], [place] [address] documented as of this encounter Visit Diagnoses Diagnosis Psoriasis Other psoriasis documented in this encounter Care Teams Field Placement Director Relationship Specialty Start Date End Date Melvin D eLeón DNP [address] [place] [address] PCP - General Family Medicine 10/29/22 documented as of this encounter
--- OUTSIDE RECORDS SUMMARY | 2024-04-16 15:27 | XMS_ITS | Encounter Summary ---
[place] [address] Care Team Providers Care Software Support Analyst Name Role Phone Melvin De León DNP Primary Care Provider Encounter Details Date Type Department Care Team (Late st Contact Info) Description 01/29/2023 Refill Dermatology at [address] [phone] Mandi Velazquez RN Social History [...] 3:45 PM EST Office Visit Dermatology at [address] [phone] Jordan Arias MD [address] [place] [address], DAVID A DERMATOLOGY [place], [place] [address] documented as of this encounter Visit Diagnoses Not on filedocumented in this encounter Care Teams Software Support Analyst Relationship Specialty Start Date End Date Melvin De León DNP [address] [place] [address] [place], [place] [id number] PCP - General Family Medicine 10/29/22 documented as of this encounter
--- OUTSIDE RECORDS SUMMARY | 2024-04-16 15:27 | XMS_ITS | Clinical Summary ---
Author Organization [facility] Address [facility] [place] [address] Care Team Providers Care Fire Pilot Name Role Phone Melvin De León DNP Primary Care Provider Allergies Active Allergy Reactions Criticality Noted Date Comments Amoxicillin Trihydrate CIS - Hives Amoxicillin-Pot Clavulanate CIS - Hives Penicillins High 09/14/2022 Other Reaction(s): Other (See Comment) Medications Medication Sig Dispensed Refills Start Date End Date Status triamcinolone (Kenalog) 0.1 % Cream Apply thin layer topically to affected areas on a twice daily basis. 453.6 g 2 01/29/2023 Active betamethasone dipropionate (Maxivate) 0.05 % Cream Apply thin layer topically twice daily to active areas on shins. 45 g 5 11/12/2023 Active Humira,CF, Pen 40 mg/0.4 mL Pen Injector Kit INJECT 1 PEN UNDER THE SKIN EVERY 14 DAYS 0.8 mL 1 04/13/2024 Active Active Problems Problem Noted Date Diagnosed Date Psoriasis 10/26/2023 Encounters Date Type Department Care Team Description 04/13/2024 Refill Dermatology at [address] [phone] Jordan Arias MD from Last 3 Months Social History Tobacco Use Types Packs/Day Years Used Date Smoking Tobacco: Every Day Sex and Gender Information Value Date Recorded Sex Assigned at Not on file Gender Identity Not on file Sexual Orientation Not on file Plan of Treatment Upcoming Encounters Date Type Department Care Team (Late st Contact Info) Description 05/19/2024 3:45 PM EST Office Visit Dermatology at [address] [phone] Jordan Arias MD [address], [place] [address] Health Maintenance Due Date Last Done Comments CT Colonography 1960 Colonoscopy 1962 Colorectal Cancer Screening 1960 FIT DNA 1960 FIT 1960 Sigmoidoscopy (10 year) with FIT yearly 1960 Sigmoidoscopy 1960 HIV screen 1980 Hepatitis C Screening 1980 Lipid Screening 1980 Pneumoccocal Vaccine: 50+ (1 of 2 - PCV) 1981 Tetanus/Diphtheria/Pertussis Vaccines (1 - Tdap) 07/25 Zoster vaccine (1 of 2) 2012 Advance Directive 2017 Covid-19 Vaccine (1 - 2023- season) 2023 Influenza (Flu) vaccine (1 o f 1 - Influenza standard series) 11/21/2023 Care Teams Fire Pilot Relationship Specialty Start Date End Date Melvin De León DNP [address] [place] [address] [address] [place], [place] [id number] PCP - General Family Medicine 10/29/22
--- OUTSIDE RECORDS SUMMARY | 2024-04-16 15:27 | XMS_ITS | Encounter Summary ---
[place] [address] Care Team Providers Care Digital Advertising Specialist Name Role Phone Melvin De León DNP Primary Care Provider [phone] Encounter Details Date Type Department Care Team (Late st Contact Info) Description 01/29/2023 Refill Dermatology at [address] [phone] Mandi Velazquez RN Social History [...] 3:45 PM EST Office Visit Dermatology at [address] [phone] Jordan Arias MD [address] [place] [address], DAVID A DERMATOLOGY [place], [place] [id number] documented as of this encounter Visit Diagnoses Not on filedocumented in this encounter Care Teams Digital Advertising Specialist Relationship Specialty Start Date End Date Melvin De León DNP [address] [place] [address] [place], [place] [id number] PCP - General Family Medicine 10/29/22 documented as of this encounter
--- OUTSIDE RECORDS SUMMARY | 2024-04-16 15:27 | XMS_ITS | Encounter Summary ---
[place] [address] Care Team Providers Care Director Perioperative Name Role Phone Melvin De León DNP Primary Care Provider Reason for Visit * Reason Comments Medication Refill Encounter Details Date Type Department Care Team (Late st Contact Info) Description 09/27/2023 Refill Dermatology at [address] [phone] Jordan Arias MD [address] [place] [address], [facility] [place] [address] Social History Tobacco Use Types Packs/Day Years [...] 3:45 PM EST Office Visit Dermatology at [address] [phone] Jordan Arias MD [address] [place] [address], [facility] [place] [address] documented as of this encounter Visit Diagnoses Not on filedocumented in this encounter Care Teams Director Perioperative Relationship Specialty Start Date End Date Melvin De León DNP [address] [place] [phone] PCP - General Family Medicine 10/29/22 documented as of this encounter
--- OUTSIDE RECORDS SUMMARY | 2024-04-16 15:27 | XMS_ITS | Encounter Summary ---
[place] [address] Care Team Providers Care Gate Person Name Role Phone Melvin De León DNP Primary Care Provider Reason for Visit * Reason Comments Medication Refill Encounter Details Date Type Department Care Team (Late st Contact Info) Description 10/25/2023 Refill Dermatology at [address] [phone] Jordan Arias MD [address] [place] [address], [facility] [address] Social History Tobacco Use Types Packs/Day Years [...] 3:45 PM EST Office Visit Dermatology at [address] [phone] Jordan Arias MD [address] [place] [address], [facility] [address] documented as of this encounter Visit Diagnoses Not on filedocumented in this encounter Care Teams Gate Person Relationship Specialty Start Date End Date Melvin De León DNP [address] [place], [place] [id number] PCP - General Family Medicine 10/29/22 documented as of this encounter
--- OUTSIDE RECORDS SUMMARY | 2024-04-16 15:28 | XMS_ITS | Encounter Summary ---
Author Organization Formerly [facility], [facility] Address [facility] [place] [address] Care Team Providers Care Bowling Alley Attendant Name Role Phone Melvin De León DNP Primary Care Provider [phone] Reason for Visit * Reason Comments Psoriasis Encounter Details Date Type Department Care Team (Late st Contact Info) Description 10/29/2022 2:45 PM EDT Office Visit Dermatology at [address] [phone] Jordan Arias MD [address], [place] [address] Psoriasis Social History Tobacco Use Types Packs/Day Years Used Date Smoking Tobacco: Every Day Sex and Gender Information Value Date Recorded Sex Assigned at Not on file Gender Identity Not on file Sexual Orientation Not on file documented as of this encounter Progress Notes * Jordan Arias MD - 10/29/2022 2:45 PM EDT Problem: 1. History of psoriasis previously treated with methotrexate 2. History of psoriasiform drug reaction secondary to penicillin 3. History of psoriasis in his mother 4. Resolving acute flare of psoriasis after April 22, 2021 visit 5. Patient currently drinks 3 mixed drinks in the evenings. Warren follows up because his psoriasis is flaring. He had been on medication until about a year agowhen we tapered him down and off. It flared again a year later starting in May. He is waiting twomonths to get in and see me. Physical examination reveals a pleasant 62-year-old gentleman who has contiguous psoriasis over hisentire lower back from his left to right flank extending onto the buttocks and widely over his lower extremities as well. It is excoriated. It is Assessment plan: Psoriasis 1. Patient is not a good candidate for methotrexate 2. Patient tends to burn easily does not ames, not a good candidate for phototherapy 3. Recommend that we consider advancing to a biologic. Humira is the preferred biologic for this patient 4. Will begin Humira using the 40 mg / 0.4 mL citrate free pen. Inject 80 mg on day 1, 40 mg on day8, then 40 mg every 2 weeks thereafter. 5. For some symptomatic relief of his current itching and burning, begin triamcinolone 0 point percent cream plan diabetes basis to affected areas on back and legs dispense 1 pound jar. 6. Patient will call us when he receives the medications we can demonstrate the appropriate injection technique for Humira. 7. Return to clinic in 3 months for repeat check on his progress. CC: Melvin De León DNP documented in this encounter Plan of Treatment Upcoming Encounters Date Type Department Care Team (Late st Contact Info) Description 05/19/2024 3:45 PM EST Office Visit Dermatology at [place] [address] [place] [address] Jordan Arias MD [address] [facility], [place] [address] documented as of this encounter Visit Diagnoses Diagnosis Psoriasis Other psoriasis documented in this encounter Care Teams Bowling Alley Attendant Relationship Specialty Start Date End Date Melvin De León DNP [address] [place] [address] [place] [address] PCP - General Family Medicine 10/29/22 documented as of this encounter
--- OUTSIDE RECORDS SUMMARY | 2024-04-16 15:28 | XMS_ITS | Encounter Summary ---
[place] [address] Care Team Providers Care Functional Director Name Role Phone Hakan Escobar DO Primary Care Provider [phone] Reason for Visit * Reason Comments Medication Refill Encounter Details Date Type Department Care Team (Late st Contact Info) Description 07/07/2021 Refill Dermatology at [address] [phone] Jordan Arias MD [address] [place] [address], [facility] [place] [address] Social History Tobacco Use Types Packs/Day Years [...] 3:45 PM EST Office Visit Dermatology at [address] [phone] Jordan Arias MD [address] [place] [address], [facility] [place] [address] documented as of this encounter Visit Diagnoses Not on filedocumented in this encounter Care Teams Functional Director Relationship Specialty Start Date End Date Hakan Escobar DO [address] [id number] PCP - General 02/11/10 10/28/22 documented as of this encounter
--- OUTSIDE RECORDS SUMMARY | 2024-04-16 15:28 | XMS_ITS | Encounter Summary ---
Author Organization [facility] Address [address] [place] [address] Care Team Providers Care Mine Superintendent Name Role Phone Unavailable Primary Care Provider Unavailabl e Encounter Details Date Type Department Care Team (Late st Contact Info) Description 05/27/2023 Lab Requisition [facility] Pathology & Laboratory Medicine - [facility] [address] [place] [address] Outr Resulting Lab, Provider Social History Tobacco Use Types Packs/Day Years Used Date Smoking Tobacco: Never Assessed Interpersonal Safety Answer Date Record ed Physically Hurt Never 06/28/2020 Verbally Threaten Not on file 06/28/2020 Sex and Gender Information Value Date Recorded Sex Assigned at Not on file Legal Sex Male 15:05 EDT Gender Identity Not on file Sexual Orientation Not on file documented as of this encounter Plan of Treatment Not on file documented as of this encounter Procedures Procedure Name Priority Date/Time Associated Diagnosis Comments QUANTIFERON MITOGEN (PERFORMABLE) Today 05/26/2023 7:12 EST QUANTIFERON TB2 (PERFORMABLE) Today 05/26/2023 7:12 EST QUANTIFERON TB1 (PERFORMABLE) Today 05/26/2023 7:12 EST QUANTIFERON NIL (PERFORMABLE) Today 05/26/2023 7:12 EST QUANTIFERON INTERPRETATION (PERFORMABLE) Today 05/26/2023 7:12 EST QUANTIFERON TB GOLD PLUS Routine 05/26/2023 7:12 EST documented in this encounter Results * QUANTIFERON INTERPRETATION (PERFORMABLE) (05/26/2023 7:12 EST) Quantiferon Interpretation Negative Negative 05/28/2023 11:16 EST [facility] Comment:No interferon-gamma response to M. tuberculosis antigens was detected. ??Infection with M. tuberculosis is unlikely. A single negative result does not exclude infection with M. tuberculosis. ??In patients at high risk for M. tuberculosis infection, a second test should be considered. TB1 Ag minus Nil 0.00 IU/ml 05/28/19 11:16 EST [facility] TB2 Ag minus Nil 0.00 IU/mL 05/28/19 11:16 EST [facility] Blood VENOUS BLOOD / Unknown 05/26/2023 7:12 EST 05/28/2023 11:00 EST us Provider Outr Resulting Lab IMMUNOLOGY AND SEROL OGY ORDERABLES Final Result Performing Organization Address [facility] de Phone Number [facility] [address] [place] [phone] * QUANTIFERON MITOGEN (PERFORMABLE) (05/26/2023 7:12 EST) Blood VENOUS BLOOD / Unknown 05/26/2023 7:12 EST 05/27/2023 17:27 EST us Provider Outr Resulting Lab IMMUNOLOGY AND SEROL OGY ORDERABLES Final Result Performing Organization Address [facility] de Phone Number [facility] [address] [place] [phone] * QUANTIFERON TB2 (PERFORMABLE) (05/26/2023 7:12 EST) Blood VENOUS BLOOD / Unknown 05/26/2023 7:12 EST 05/27/2023 17:27 EST us Provider Outr Resulting Lab IMMUNOLOGY AND SEROL OGY ORDERABLES Final Result Performing Organization Address [facility] Co de Phone Number [facility] [address] [place] [phone] * QUANTIFERON TB1 (PERFORMABLE) (05/26/2023 7:12 EST) Blood VENOUS BLOOD / Unknown 05/26/2023 7:12 EST 05/27/2023 17:27 EST us Provider Outr Resulting Lab IMMUNOLOGY AND SEROL OGY ORDERABLES Final Result Performing Organization Address [facility] Co de Phone Number [facility] [address] [place], [place] [phone] * QUANTIFERON NIL (PERFORMABLE) (05/26/2023 7:12 EST) Blood VENOUS BLOOD / Unknown 05/26/2023 7:12 EST 05/27/2023 17:27 EST us Provider Outr Resulting Lab IMMUNOLOGY AND SEROL OGY ORDERABLES Final Result Performing Organization Address [facility] Co de Phone Number [facility] [address] [place] [phone] documented in this encounter Visit Diagnoses Not on filedocumented in this encounter
--- OUTSIDE RECORDS SUMMARY | 2024-04-16 15:28 | XMS_ITS | Encounter Summary ---
[place] [address] Care Team Providers Care Grader Operator Name Role Phone Melvin De León DNP Primary Care Provider [phone] Reason for Visit * Reason Comments Prior Authorization Humira Pen-PSOR 80mg /0.8ml &40mg/0.4ml PEN kit Encounter Details Date Type Department Care Team (Late st Contact Info) Description 10/30/2022 Specialty [place] [address] Lulu Perez, SPRAY CREW Social History Tobacco Use Types Packs/Day Years Used Date Smoking Tobacco: Every Day Sex and Gender Information Value Date Recorded Sex Assigned at Not on file Gender Identity Not on file Sexual Orientation Not on file documented as of this encounter Progress Notes * Lulu Perez - 10/30/2022 3:06 PM EDT [facility], Medication Prior Authorization Submission Patient: Warren Michael Patient : 1960 Patient Address: [address] [place] [phone] Phone: [phone] (home) Medication Name: HUMIRA(CF) PEN [id number] HS SUBQ Medication ID: Subscriber Insurance: [employer] (ADV) Subscriber Insurance Comment: Fax: Physician: CARIDAD LEÓN Physician Comment: Sent Via: [facility] Irby: [id number] Ref/Case/PA#: [id number] Medication Strength Frequency Requested: Humira 80mg/0.8ml &40mg/0.4ml, INJECT THE CONTENTS OF 1 PEN (80 MG) SUBCUTANEOUSLY ON DAY 1, THEN INJECT THE CONTENTS OF 1 PEN (40 MG) ON DAY 8, THEN INJECT THE CONTENTS OF 1 PEN (40 MG) EVERY 14 DAYS THEREAFTER. Qty/Day Supply: 06/16 New Start: New to Therapy Diagnosis & ICD-10 Code: Psoriasis L40.9 Patient Notified: No Submission Notes: None Lulu Perez 10/30/22 3:19 PM * Lulu Perez - 10/30/2022 3:06 PM EDT [facility], Prior Authorization Approval Medication Name: HUMIRA(CF) PEN [id number] HS SUBQ Medication ID: Approval Dates: 10/30/2022 to 10/31/2023 Insurance requirements/notes: None Other Notes: None Case/Reference #: PHOEBE # [id number]. Approval notification Received via: Telephone Copay: Copay assistance: Copay Notes: Insurance mandated Pharmacy: [facility] Specialty Fillable at [facility]: No Patient Notified: No Pharmacy staff will be reaching out to the patient to inform them of their medication[facility]. If applicable, a pharmacist will speak with the patient to offer our specialty pharmacy services and to arrange delivery of their medication. Lulu Perez 11/04/22 10:33 AM documented in this encounter Plan of Treatment Upcoming Encounters Date Type Department Care Team (Late st Contact Info) Description 05/19/2024 3:45 PM EST Office Visit Dermatology at [address] [place] [address] Caridad León MD [address] [facility] [address], [place] [address] documented as of this encounter Visit Diagnoses Not on filedocumented in this encounter Care Teams Grader Operator Relationship Specialty Start Date End Date Melvin De León DNP [address] [place] [address] PCP - General Family Medicine 10/29/22 documented as of this encounter
--- OUTSIDE RECORDS SUMMARY | 2024-04-16 15:28 | XMS_ITS | Clinical Summary ---
Author Organization [facility] Address [address] [place] [address] Care Team Providers Care Grout Pump Operator Name Role Phone Unavailable Primary Care Provider Unavailabl e Social History Tobacco Use Types Packs/Day Years Used Date Smoking Tobacco: Never Assessed Interpersonal Safety Answer Date Record ed Physically Hurt Never 06/28/2020 Verbally Threaten Not on file 06/28/2020 Sex and Gender Information Value Date Recorded Sex Assigned at Not on file Legal Sex Male 15:05 EDT Gender Identity Not on file Sexual Orientation Not on file Plan of Treatment Health Maintenance Due Date Last Done Comments Hepatitis C Screen 1960 COVID-19 Vaccine ( season) 2023 RSV Immunization ( o r 60+ Years) (1 - 1-dose 75+ series) 2037
--- OUTSIDE RECORDS SUMMARY | 2024-04-16 15:28 | XMS_ITS | Encounter Summary ---
Author Organization [facility] Address [address] [place] [address] Care Team Providers Care Coal Chute Worker Name Role Phone Unavailable Primary Care Provider Unavailabl e Encounter Details Date Type Department Care Team (Late st Contact Info) Description 06/27/2020 Lab Requisition [facility] Pathology & Laboratory Medicine - [facility] [address] [place] [address] Outr Resulting Lab, Provider Social History Tobacco [...] Procedure Name Priority Date/Time Associated Diagnosis Comments ZZCOVID-19 TEST [facility] PCR Today 06/27/2020 9:59 EDT COVID-19 TESTING Routine 06/27/2020 9:59 EDT documented in this encounter Results * COVID-19 TEST [facility] PCR (06/27/2020 9:59 EDT) Swab ENTIRE NASOPHARYNX / Unknown 06/27/2020 9:59 EDT 06/27/2020 20:09 EDT us Provider Outr Resulting Lab MICROBIOLOGY - GENER AL ORDERABLES Final Result [facility] [address] [place] [address] * COVID-19 TESTING (06/27/2020 9:59 EDT) COVID-19 rt-PCR Result Negative Negative 06/28/2020 12:47 EDT [facility] Comment: This test has not been FDA cleared or approved. This test has been authorized by FDA under an EUA for use by authorized laboratories. This test has been authorized only for detection of nucleic acid from 2019-nCoV, not for any other viruses or pathogens. This test is only authorized for the duration of the declaration that circumstances exist justifying the authorization of emergency use of in vitro diagnostic tests for detection and/or diagnosis of 2019-nCoV under section 564(b)(1) of Act, 21 U.S.C ?? 360bbb-3(b) (1), unless the authorization is terminated or revoked sooner. Negative results do not preclude 2019-nCoV infection and should not be used as the sole basis for treatment or other patient management decisions. Negative results must be combined with clinical observations, patient history, and epidemiological information. Testing was performed using the sapna SARS-CoV-2 assay ([employer] on the Sapna 6800 System Performing Lab Sapna [address] [facility] 06/28/2020 12:47 EDT [facility] Swab 06/27/2020 9:59 EDT 06/27/2020 20:09 EDT us Provider Outr Resulting Lab MICROBIOLOGY - GENER AL ORDERABLES Final Result [facility] [address] [place] [address] documented in this encounter Visit Diagnoses Not on filedocumented in this encounter
--- OUTSIDE RECORDS SUMMARY | 2024-04-16 15:28 | XMS_ITS | Encounter Summary ---
Author Organization [facility] Address [facility] [place] [address] Care Team Providers Care Case Consultant Name Role Phone ShawnHakan duke Primary Care Provider [phone] Encounter Details Date Type Department Care Team (Late st Contact Info) Description 04/22/2021 2:00 PM EST Office Visit Dermatology at [address] [place] [phone] Jordan Arias MD [address], [place] [address] Psoriasis Social History Tobacco Use Types Packs/Day Years Used Date Smoking Tobacco: Every Day Sex and Gender Information Value Date Recorded Sex Assigned at Not on file Gender Identity Not on file Sexual Orientation Not on file documented as of this encounter Progress Notes * Jordan Arias MD - 04/22/2021 2:00 PM EST PROBLEM: 1. History of psoriasis treated with methotrexate 2. History of psoriasiform drug reaction secondary to penicillin. 3. History of psoriasis in his mother. 4. New visit for acute onset dermatitis Warren follows up after last seeing me in 2017. One month ago he suffered an acute flare of his psoriasis and now has just about has 85+ percent coverage of his total body surface. He was seen community clinic at [facility] and given topical triamcinolone cream to use and a tapering course of prednisone.Unfortunately after he ran out of the prednisone he had a renewed flaring of the dermatitis. He reminds me that I treated him in the past with cyclosporine in 2002 but also with methotrexate in 2017,with good results both times. He does drink 3 mixed drinks a night. His blood pressure when checkedwith acuity clinic was 122/74 on April 17. He denies any recent infections, emotional stressors, change in medications. He is seen in consultation today for Clifton Stevens MD Physical examination reveals widespread plaque formation with overlying desquamation and scaling covering his entire back over the buttocks also onto the anterior torso affecting his elbows forearms and legs. Assessment plan: Psoriasis, flaring 1. Begin cyclosporine, modified, 100 mg 1 p.o. twice daily dispense #60 with 0 refills 2. May continue topical triamcinolone cream 3. Recommend that we plan a telephone visit for 1 month. Will attempt to taper patient down off of cyclosporine 4. Due to EtOH intake would avoid methotrexate. 5. If no benefit consider Biologics. CC: Clifton Stevens MD documented in this encounter Plan of Treatment Upcoming Encounters Date Type Department Care Team (Late st Contact Info) Description 05/19/2024 3:45 PM EST Office Visit Dermatology at [place] [address] [place] [address] Jordan Arias MD [address], [place] [address] documented as of this encounter Visit Diagnoses Diagnosis Psoriasis Other psoriasis documented in this encounter Care Teams Case Consultant Relationship Specialty Start Date End Date Hakan Escobar DO [address] [place] [address] PCP - General 02/11/10 10/28/22 documented as of this encounter
--- OUTSIDE RECORDS SUMMARY | 2024-04-16 15:28 | XMS_ITS | Referral Summary ---
Author Organization [facility] Address [address] [place] [address] Care Team Providers Care Hosiery Looper Name Role Phone Unavailable Primary Care Provider [...] Orientation Not on file Plan of Treatment Not on file
--- OUTSIDE RECORDS SUMMARY | 2024-04-16 15:28 | XMS_ITS | Encounter Summary ---
[place] [address] Care Team Providers Care Gas Leak Inspector Helper Name Role Phone Hakan Escobar DO Primary Care Provider [phone] Encounter Details Date Type Department Care Team (Late st Contact Info) Description 05/19/2016 Refill Dermatology at [address] [phone] Nisreen Reyes, AGRICULTURAL SCIENCE PROFESSOR Social History Tobacco Use Types Packs/Day Years [...] 3:45 PM EST Office Visit Dermatology at [address] [phone] Jordan Arias MD [address] [place] [address], DAVID A DERMATOLOGY [place], [place] [phone] documented as of this encounter Visit Diagnoses Not on filedocumented in this encounter Care Teams Gas Leak Inspector Helper Relationship Specialty Start Date End Date Hakan Escobar DO [address] [facility] [address] [place], [place] [address] PCP - General 02/11/10 10/28/22 documented as of this encounter
--- OUTSIDE RECORDS SUMMARY | 2024-04-16 15:28 | XMS_ITS | Encounter Summary ---
[place] [address] Care Team Providers Care Lidar Scientist Name Role Phone Melvin De León DNP Primary Care Provider [phone] Encounter Details Date Type Department Care Team (Late st Contact Info) Description 11/04/2022 Refill Dermatology at [address] [phone] Jordan Arias MD [address] [place] [address], [place] [address] Social History Tobacco Use Types Packs/Day Years [...] 3:45 PM EST Office Visit Dermatology at [address] [phone] Jordan Arias MD [address] [place] [address], [place] [address] documented as of this encounter Visit Diagnoses Not on filedocumented in this encounter Care Teams Lidar Scientist Relationship Specialty Start Date End Date Melvin De León DNP [address] [place] [address] PCP - General Family Medicine 10/29/22 documented as of this encounter
--- OUTSIDE RECORDS SUMMARY | 2024-04-16 15:28 | XMS_ITS | Encounter Summary ---
[place] [address] Care Team Providers Care Neon Molder Name Role Phone ShawnHakan duke Primary Care Provider [phone] Reason for Visit * Reason Comments Skin Check Encounter Details Date Type Department Care Team (Late st Contact Info) Description 04/21/2016 1:45 PM EST Office Visit Dermatology at [address] [place] [phone] Jordan Arias MD [address] [facility], [place] [address] Psoriasis Social History Tobacco Use Types Packs/Day Years Used Date Smoking Tobacco: Every Day Sex and Gender Information Value Date Recorded Sex Assigned at Not on file Gender Identity Not on file Sexual Orientation Not on file documented as of this encounter Progress Notes * Jordan Arias MD - 04/21/2016 1:45 PM EST PROBLEM: 1. Follow up psoriasis. 2. History of psoriasiform drug reaction secondary to penicillin. 3. History of psoriasis in mother. Warren follows up after last being seen in 07/2006. His psoriasis has been pretty much quiescent until just this fall when things were really flaring on the buttocks and on his legs. He was given some betamethasone cream to use, but unfortunately has not been adequate. Patient denies any history of liver disease, hepatitis, jaundice. Physical examination reveals a brown-eyed, dark-haired, 55-year-old gentleman who has very sebaceous complexion. He has large but thin plaque psoriasis on the buttocks and lower back, and smaller, nickel- to dime-sized patches of plaque psoriasis on his legs. Many of these are excoriated. He has some mild involvement on his knees, minimally on his elbows. He has involvement minimally on his ears and postauricular scalp. He does have some pitting of his fingernails. A/P: Psoriasis flare. a. Previously stable for 10 years! b. Patient has access to a tanning bed that his sister has and this would be beneficial for his psoriasis. Encouraged him to use it on a daily basis, slowly increasing his time setting from the assistant banquet manager recommendation as his skin tolerates. He recalls as a teenager tanning well, burning rarely in the summer months. c. Begin also methotrexate 2.5 mg take 6 p.o. q week, #30 dispensed with 1 refill. d. Patient needs to discontinue alcohol while on this medication. He tends to drink about 3 beers a day now, he states. e. Begin also folate 1 p.o. daily every day of the week except the one day he takes the methotrexate, #90 dispensed for a 2-month supply with 3 refills. f. Return to clinic in 1 month for repeat. Check methotrexate labs at that time. Standing orders given for him to have these drawn at [facility]. g. Plan will be to use methotrexate to get him to clear and phototherapy as an adjunct, then taper him down and off of methotrexate and utilize both a tanning bed and summertime sun to keep his psoriasis in remission. I do not plan on long-term methotrexate in this patient. cc: Hakan Escobar DO documented in this encounter Plan of Treatment Upcoming Encounters Date Type Department Care Team (Late st Contact Info) Description 05/19/2024 3:45 PM EST Office Visit Dermatology at [place] [address] [place] [address] Jordan Arias MD [address] [facility], [place] [address] documented as of this encounter Visit Diagnoses Diagnosis Psoriasis Other psoriasis documented in this encounter Care Teams Neon Molder Relationship Specialty Start Date End Date Hakan Escobar DO [address] [place] [address] [address] [place] [address] PCP - General 02/11/10 10/28/22 documented as of this encounter
--- OUTSIDE RECORDS SUMMARY | 2024-04-16 15:28 | XMS_ITS | Encounter Summary ---
Author Organization [facility] [place] [address] Care Team Providers Care Catalyst Unit Operator Name Role Phone Melvin De León DNP Primary Care Provider Encounter Details Date Type Department Care Team (Late st Contact Info) Description 10/29/2022 Refill Dermatology at [address] [phone] Nisreen Reyes LPN Social History Tobacco Use Types Packs/Day Years [...] PM EST Office Visit Dermatology at [address] [phone] Jordan Arias MD [address] [place] [address], [place] A DERMATOLOGY [place], [place] [id number] documented as of this encounter Visit Diagnoses Not on filedocumented in this encounter Care Teams Catalyst Unit Operator Relationship Specialty Start Date End Date Melvin De León DNP [address] [place] [id number] PCP - General Family Medicine 10/29/22 documented as of this encounter
--- OUTSIDE RECORDS SUMMARY | 2024-04-16 15:28 | XMS_ITS | Encounter Summary ---
[place] [address] Care Team Providers Care Polisher And Sander Name Role Phone Hakan Escobar DO Primary Care Provider [phone] Encounter Details Date Type Department Care Team (Late st Contact Info) Description 04/21/2016 Refill Dermatology at [address] [phone] Nisreen Reyes, TRAVEL INSURANCE AGENT Social History Tobacco Use Types Packs/Day Years [...] PM EST Office Visit Dermatology at [address] [phone] Jordan Arias MD [address] [place] [address], DAV[place] A DERMATOLOGY [place], [place] [phone] documented as of this encounter Visit Diagnoses Not on filedocumented in this encounter Care Teams Polisher And Sander Relationship Specialty Start Date End Date Hakan Escobar DO [address] [facility] [place] [address] [place], [place] [address] PCP - General 02/11/10 10/28/22 documented as of this encounter
--- OUTSIDE RECORDS SUMMARY | 2024-04-16 15:28 | XMS_ITS | Encounter Summary ---
[place] [address] Care Team Providers Care Assistant Oceanographer Name Role Phone Hakan Escobar DO Primary Care Provider [phone] Encounter Details Date Type Department Care Team (Late st Contact Info) Description 04/22/2021 Refill Dermatology at [address] [phone] Nisreen Reyes, WOOD MECHANIST Social History Tobacco Use Types Packs/Day Years [...] 3:45 PM EST Office Visit Dermatology at [address] [phone] Jordan Arias MD [address] [place] [address], DAV[place] A DERMATOLOGY [place], [place] [id number] documented as of this encounter Visit Diagnoses Not on filedocumented in this encounter Care Teams Assistant Oceanographer Relationship Specialty Start Date End Date Hakan Escobar DO [address] [facility] 1 [place], [place] [address] PCP - General 02/11/10 10/28/22 documented as of this encounter
--- OUTSIDE RECORDS SUMMARY | 2024-04-16 15:28 | XMS_ITS | Encounter Summary ---
[place] [address] Care Team Providers Care Harbor Pilot Name Role Phone Melvin De León DNP Primary Care Provider [phone] Encounter Details Date Type Department Care Team (Latest Contact Info) Description 11/17/2022 Travel Social History Tobacco Use Types Packs/Day [...] 3:45 PM EST Office Visit Dermatology at [place] [address] [facility] [place] [phone] Jordan Arias MD 580 [facility], [place] [address] documented as of this encounter Visit Diagnoses Not on filedocumented in this encounter Care Teams Harbor Pilot Relationship Specialty Start Date End Date Melvin De León DNP [address] [place] [address] PCP - General Family Medicine 10/29/22 documented as of this encounter
--- OUTSIDE RECORDS SUMMARY | 2024-04-16 15:28 | XMS_ITS ---
[place] [address] Care Team Providers Care Water Reuse Program Manager Name Role Phone Melvin De León DNP Primary Care Provider [phone] Dermatology Status:Ineligible (Enrolling) Start date:10/25/2023 Enrollment reason:Ineligible - Insurance Mandate Current support & services provided:Prior Authorization Management Linked medications:adalimumab (Active) Linked problems:Psoriasis (Active) Continued Care and Services Coordination
--- OUTSIDE RECORDS SUMMARY | 2024-04-16 15:28 | XMS_ITS | Encounter Summary ---
[place] [address] Care Team Providers Care Expediter Service Order Name Role Phone Melvin De León DNP Primary Care Provider [phone] Encounter Details Date Type Department Care Team (Latest Contact Info) Description 10/29/2022 Travel Social History Tobacco Use Types Packs/Day [...] 3:45 PM EST Office Visit Dermatology at [place] [address] [facility] [place] [phone] Jordan Arias MD 580 [facility], [place] [address] documented as of this encounter Visit Diagnoses Not on filedocumented in this encounter Care Teams Expediter Service Order Relationship Specialty Start Date End Date Melvin De León DNP [address] [facility] [place] [address] PCP - General Family Medicine 10/29/22 documented as of this encounter
--- OUTSIDE RECORDS SUMMARY | 2024-04-16 15:28 | XMS_ITS | Encounter Summary ---
[place] [address] Care Team Providers Care Tea Taster Name Role Phone ShawnHakan duke Primary Care Provider [phone] Encounter Details Date Type Department Care Team (Late st Contact Info) Description 05/20/2021 4:30 PM EST TH Visit (TeleHealth) Dermatology at [address] [phone] Jordan Arias MD [address] [facility], [place] [address] Psoriasis Social History Tobacco Use Types Packs/Day Years Used Date Smoking Tobacco: Every Day Sex and Gender Information Value Date Recorded Sex Assigned at Not on file Gender Identity Not on file Sexual Orientation Not on file documented as of this encounter Progress Notes * Jordan Arias MD - 05/20/2021 4:30 PM EST Problem: 1. History of psoriasis treated with methotrexate 2. History of psoriasiform drug reaction secondary to penicillin 3. History of psoriasis in his mother 4. Resolving acute flare of psoriasis after April 22, 2021 visit 5. Patient currently drinks 3 mixed drinks in the evenings. 6. telehealth telephone visit Warren is contacted today utilizing the [employer] telephone platform. I want to follow-up on hisprogress on cyclosporine for his flare of psoriasis. I started him on 100 mg p.o. twice daily of the modified cyclosporine on 12 and has been tolerating this well. He states that his skin is about 90% cleared today. While still erythematous in many areas, the desquamation and scaling previously present over 85% of his total surface body now has almost entirely resolved. He has tolerated the modified cyclosporine well without any side effects. Assessment plan: Psoriasis flare responding to cyclosporine modified 100 mg 1 p.o. twice daily 1. Taper down to two 1 day 100 mg for the next month then discontinue dispense #30 with 0 refills 2. May continue topical triamcinolone cream to any residual areas until remaining rash is entirely clear then discontinue this as well 3. I have asked him to contact us in a month with his progress. 4. I had last seen the patient in 2017 for his last flare and then he was cleared for 5 years untilthis most recent outbreak. I would not recommend ongoing maintenance therapy unless he again beginsto flare. 5. Could consider Biologics and we have obtained a listing of his formulary Biologics with Humira being preferred. CC: Hakan Escobar DO documented in this encounter Plan of Treatment Upcoming Encounters Date Type Department Care Team (Late st Contact Info) Description 05/19/2024 3:45 PM EST Office Visit Dermatology at [place] [address] [facility] [place] [address] Jordan Arias MD [address] [facility], [place] [address] documented as of this encounter Visit Diagnoses Diagnosis Psoriasis Other psoriasis documented in this encounter Care Teams Tea Taster Relationship Specialty Start Date End Date Hakan Escobar DO [facility] [address] [facility] 1 [place] [address] PCP - General 02/11/10 10/28/22 documented as of this encounter
--- OUTSIDE RECORDS SUMMARY | 2024-04-16 15:28 | XMS_ITS | Encounter Summary ---
Author Organization [facility] [place] [address] Care Team Providers Care Technical Writer And Editor Name Role Phone ShawnHakan duke Primary Care Provider [phone] Reason for Visit * Reason Comments Follow-up Encounter Details Date Type Department Care Team (Late st Contact Info) Description 05/19/2016 3:00 PM EST Office Visit Dermatology at [address] [place] [phone] Jordan Arias MD [address] [facility] [address], [place] [address] Psoriasis Social History Tobacco Use Types Packs/Day Years Used Date Smoking Tobacco: Every Day Sex and Gender Information Value Date Recorded Sex Assigned at Not on file Gender Identity Not on file Sexual Orientation Not on file documented as of this encounter Progress Notes * Jordan Arias MD - 05/19/2016 3:00 PM EST PROBLEM: 1. Followup psoriasis status post 1 month of methotrexate. 2. History of psoriasiform drug reaction secondary to penicillin. 3. History of psoriasis in his mother. Warren follows up after last being seen on April 21. His psoriasis is improving slowly but surely. He is much less itchy. He is seeing improvement. He has cut back on his alcohol, drinking, at most, one beer a day he states. He has not had his labs done prior to today's visit. Physical examination reveals a brown eyed and dark haired 55-year-old gentleman whose psoriasis on the arms and legs now is largely resolved. He has a few excoriations, however. He still has a large psoriatic plaque on the lower left back/left flank. But again, the small nickel to dime sized patches of plaque psoriasis on the knees and arms have largely cleared, but the excoriations have still remain. ASSESSMENT AND PLAN: Psoriasis in current flare. a. Previously stable for 10 years! b. Patient has not yet started using the tanning bed his sister has, but I would encourage him to do so. He tends to ames well, burn rarely. c. Continue methotrexate 2.5 mg, taking 6 of these p.o. every week (15 mg), #30 dispensed, and he still has 1 refill left, which will be enough for a 2-month supply. d. Continue limiting beer to 1 a day at most. e. Continue folate 1 p.o. every day of the week except the 1 day he takes the methotrexate. He was given #90 for a 3 month supply with 3 refills on April 21. f. Return to clinic in 2 months for repeat check. Check methotrexate labs in the next day or two. g. Plan will be to use methotrexate to get him clear and phototherapy as an adjunct, and then taper off methotrexate and use tanning/summertime sun to keep his skin in remission. I do not plan on long-term methotrexate in this patient. cc: Hakan Escobar DO. documented in this encounter Plan of Treatment Upcoming Encounters Date Type Department Care Team (Late st Contact Info) Description 05/19/2024 3:45 PM EST Office Visit Dermatology at [place] [address] [place] [address] Jordan Arias MD [address] [facility] [address], [place] [address] documented as of this encounter Visit Diagnoses Diagnosis Psoriasis Other psoriasis documented in this encounter Care Teams Technical Writer And Editor Relationship Specialty Start Date End Date Hakan Escobar DO [address] [address] [place] [address] PCP - General 02/11/10 10/28/22 documented as of this encounter
[2024-04-16] MEDS: predniSONE 20 MG TAB 60 MG PO (15:41)
[2024-04-16] MEDS: Clindamycin 150 MG CAP 450 MG PO (15:41)
[2024-04-16 15:50] LABS: Bilirubin Small (Negative); Blood Large (Negative); Clarity Cloudy (Clear); Glucose Negative (Negative); Ketones Negative (Negative); Leukocyte Esterase Negative (Negative); Nitrite Negative (Negative); Specific Gravity 1.025 (1.005-1.025); pH 6.5 (5-8)
[2024-04-16 15:56] LABS: C & S Indicated? No; RBC >50 HPF (0-2)
[2024-04-16] MEDS: Clindamycin 150 MG CAP, 12 CAPS/BTL 450 MG PO (16:42)
== END 2024-04-16 16:43 | disposition home or self-care (01) ==
LOC: ER 15:26
PROVIDERS: Emergency Provider Emergency Medicine; PCP Nurse Practitioner Family
DX: L03.115 Cellulitis of right lower limb (principal); R31.9 Hematuria, unspecified
CPT/HCPCS: 99283; 81003; 81015; J7512

== ENCOUNTER 2024-04-19 14:09 | Outpatient (REF) | payer BC, SELFPAY ==
[2024-04-19 22:02] LABS: Bilirubin Negative (Negative); Blood Large (Negative); Clarity Clear (Clear); Glucose Negative (Negative); Ketones Negative (Negative); Leukocyte Esterase Negative (Negative); Nitrite Negative (Negative); Specific Gravity 1.025 (1.005-1.025); Urobilinogen 0.2 mg/dL (Up to 0.2); pH 5.5 (5-8)
[2024-04-19 22:13] LABS: Bacteria Negative HPF (Negative); C & S Indicated? No/Sq. Contamination; Casts Negative LPF (Negative); Crystals Negative HPF (Negative); Epithelial Cells Many HPF (Negative); Mucus Heavy (Negative); RBC 20-50 HPF (0-2)
== END 2024-04-19 14:10 | disposition home or self-care (01) ==
LOC: LBN 14:09
PROVIDERS: PCP Nurse Practitioner Family; Visit Provider Nurse Practitioner Family
DX: R31.9 Hematuria, unspecified (principal)
CPT/HCPCS: 81003; 81015

== ENCOUNTER 2024-04-28 01:27 | Outpatient (CLI) | payer BC, SELFPAY ==
[2024-04-28] MEDS: Inhaler, Assist Device 1 EACH MC (16:13)
[2024-04-28] MEDS: Levalbuterol HFA 15 GM INH 4 PUFF IH (16:14)
--- NOTE | 2024-05-02 12:13 | W.PFT ---
Date of service: 04/28/24 Time of Service: 15:15 Pulmonary Function Test Result Indications: COPD Interpretation Spirometry: There is severe airflow limitation. There is a significant bronchodilator response. The FVC is low. Lung Volumes: There is air trapping Diffusion Capacity: Diffusion is reduced Airway Pressure: Increased airways resistance Impression Severe airflow obstruction with a bronchodilator response, reduced diffusion and air trapping. The low FVC is likely due to severe obstruction. Clinical Correlation therefore is recommended.
== END 2024-04-28 01:28 | disposition home or self-care (01) ==
LOC: RT 01:28
PROVIDERS: PCP Nurse Practitioner Family; Visit Provider Student in an Organized Health Care Education/Training Program
DX: J44.89 Other specified chronic obstructive pulmonary disease (principal)
CPT/HCPCS: 94060; 94726; 94729

== ENCOUNTER 2024-05-29 03:12 | Outpatient (CLI) | payer BC, SELFPAY ==
[2024-05-29 14:26] LABS: CREATININE 2.4 mg/dL (0.70-1.30); Estimated GFR 29.95 (mL/min/1.73m2)
--- NOTE | 2024-05-29 15:02 | DI.CTLCSR_ITS ---
Exam(s) CT CHEST LUNG CANCER SCREEN EXAM: CT CHEST LUNG CANCER SCREEN CLINICAL HISTORY: Screening for lung cancer,TOBACCO USE DISORDER,f17.200. TECHNIQUE: Imaging Protocol: Low Dose Technique CONTRAST MATERIAL: None COMPARISON: CT CT CHEST LUNG CANCER SCREEN from 05/26/2023 FINDINGS: CHEST: LUNGS: [address] scan of 1 year ago (May 2023) there are now numerous bilateral nodular infiltrates all measuring less than 1 cm, many with tree in bud configuration.. There is no one paramjit nant nodule and there are no pleural effusions on either side. MEDIASTINUM: There is no obvious hilar nor mediastinal adenopathy. There is no adenopathy in the ant erior mediastinal fat. Slightly prominent subcarinal lymph nodes are noted. Visualized thyroid glan d appears unremarkable. CARDIAC: Heart size is normal. There is no pericardial effusion.Caliber of the thoracic aorta is wit hin normal limits. OTHER: No adrenal masses. OSSEOUS: No significant osseous lesions.No fractures evident.. IMPRESSION: 1. Compared to the prior unremarkable CT scan of 05/26/2023 there are now numerous bilateral sub cm n oncalcified nodular infiltrates throughout both lung staton which will require close follow-up. Ther e are no associated pleural effusions. 2. Slightly enlarged subcarinal lymph nodes are noted 3. Lung RADS Cat 4A - Suspicious: Findings for which additional diagnostic testing and/or tissue samp ling recommended Lung-RADS 1.0 CATEGORIES: Category 0 - Prior chest CT exam(s) being located for comparison. Category 1 - Annual screening in 12 months. No nodules or definitely benign nodules. Category 2 - Annual screening in 12 months. Benign appearance. Nodules with low likelihood of becomin g active cancer. Category 3 - 6-month follow-up. Probably benign. Short-term follow-up suggested. Nodules with low lik elihood of becoming active cancer. Category 4A - 3-month follow-up and CT/PET if >8 mm in size. Suspicious finding. Findings which requi re additional testing. Category 4B - Findings which require additional testing and tissue sampling. Category 4X - Category 3 or 4 nodules with additional features or imaging findings that increases the suspicion of malignancy. Modifier S- Potentially clinically significant findings (non lung cancer) RADIATION DOSE DELIVERED: 106.75mGy.cm Total DLP DATA REPOSITORY: All CT scans at this facility are submitted to the National Radiology Data Registry (NRDR) Dose Index Registry (DIR) with the [employer] (A[employer]). RADIATION OPTIMIZATION: All CT scans at this facility use at least one of these dose optimization te chniques: automated exposure control; mA and/or kV adjustment per patient size (includes targeted exa ms where dose is matched to clinical indication); or iterative reconstruction.
[2024-05-29 22:24] LABS: PSA, Screening 0.4 ng/mL (<=4.5)
== END 2024-05-29 03:32 ==
LOC: DI 03:12
PROVIDERS: Nurse Practitioner Gerontology; PCP Nurse Practitioner Family; Visit Provider Nurse Practitioner Family
DX: R31.9 Hematuria, unspecified (principal); R39.9 Unspecified symptoms and signs involving the genitourinary system; Z80.42 Family history of malignant neoplasm of prostate; F17.210 Nicotine dependence, cigarettes, uncomplicated
CPT/HCPCS: 71271; 84153; 82565

== ENCOUNTER 2024-06-22 06:03 | Day surgery (SDC) | payer BC, SELFPAY ==
--- NOTE | 2024-06-21 08:32 | URETHRABX_PTH ---
PATIENT: Warren Michael LOC: [facility] U#:[id number] AGE/SX: 63/M ROOM: RE06/22/[address]: Gerry Coffey MD : 1960 BED: DIS: 06/22/2024 SPEC #: [id number] RECD: 06/22/24 12:16 STATUS: MARGUERITE REQ #: [id number] TOMA: 06/21/24 08:[address]: Gerry Coffey DEPT: Surgical Specimen RECD BY: Ijeoma Avila ENTERED: 06/22/24 12:17 SP TYPE: URETHRABX OTHR DR: Melvin Vora DNP Tissues: 1 - URETHRA BIOPSY Procedures: GROSS AND MICRO LEVEL 4 Comments: [id number]
[2024-06-22] VITALS (12 sets, daily range): BP systolic 126–142; BP diastolic 58–71; PULSE 89–96; RESP 18–25; TEMP 36.4–37; O2SAT 92–98; BMI 29.0
[2024-06-22] MEDS: Lactated Ringers 1,000 ML 80 ML IV (06:50)
[2024-06-22] MEDS: Sulfameth/Trimeth DS TAB 1 TAB PO (06:50)
--- NOTE | 2024-06-22 07:14 | HPE_ITS ---
Date of service: 06/22/24 Time of Service: 07:14 Assessment and Plan Assessment and plan (1) Gross hematuria: Status: Acute Assessment and plan: We will complete his hematuria workup with a cystoscopy. We will be prepared to do a TUR bladder tumor should any abnormality be identified. History of Present Illness History of Present Illness Chief Complaint: Hematuria Narrative: Warren is a 63-year-old male referred to urology by his PCP for hematuria. Patient notes that he has had hematuria for the last 3 months. Originally thought his urine was darker and had it tested when he was seen through the emergency room related to a cellulitis of his lower extremity. He was then informed that he has a hematuria. Hematuria has been painless in nature. He has had no flank pain or UTI concerns. He has a 40+ year smoking history of 1 to 1-1/2 packs/day. He is attempting to reduce his smoking currently. He tells me the hematuria occurs on a daily basis. he has seen clots on one occasion. He notes that his frequency and urgency has been stable over the years. He does not strain to initiate his stream nor does he have incontinence. He does not recall history of bladder or kidney infections. He does have erectile dysfunction. He feels that he can empty out completely. He reports that his father had prostate cancer in his 60s. He underwent radiation. Patient is unsure if he ever had a PSA done. He thinks his last DIANE was greater than 10 years ago. He was evaluated with a noncontrast CT scan as his serum creatinine was elevated (2.4 mg/dL). The scan showed a small nonobstructing right kidney stone with no obvious mass. He had no hydronephrosis. Review of Systems Narrative: No fevers or chills Allergic rhinitis. No vision change or dysphasia No diabetes or thyroid COPD. No shortness of breath, cough or hemoptysis No chest pain or palpitations No nausea, vomiting, hepatitis, ulcers, jaundice No seizures, strokes or peripheral neuropathy No bleeding disorders or anemia No gout PFSH All Active Problems Abnormal CT lung screening (Acute) Gross hematuria (Acute) Family history of prostate cancer in father (Acute) Snoring (Acute) COPD (chronic obstructive pulmonary disease) (Chronic) Edema (Acute) Right leg swelling (Acute) Erectile dysfunction (Acute) Nail dystrophy (Acute) Pincer nail deformity (Acute) Annual physical exam (Acute) Allergic rhinitis (Acute) Tobacco use disorder (Acute) Psoriasis (Chronic 10/21/15) Medical History Dyspnea Family history of colon cancer Impacted cerumen of left ear Nicotine dependence Psoriasis Colon cancer screening Screening cholesterol level Psoriasis Impacted cerumen of right ear (10/14/15) Family History Mother Diabetes Father Neoplasm PROSTATE Sister Neoplasm BREAST Daughter No problems noted. Social History Smoking/Tobacco Use Status: Former Tobacco Use Quit Date: 05/21/24 Tobacco: How many years used: 40 Quit status: considering quitting Second Hand Exposure: Yes Smoking risk assessment performed?: Yes Alcohol Intake: current Alcohol Intake frequency: 0-2 drinks per day Alcohol type: hard liquor Details: 6 or more drinks monthly Drug use: Never Substance use type: does not use Counseling provided: none Adopted: No Caregiver/Support person: No Household members: none Housing: house Number of Children: 1 number of grandchildren: 0 Communication Needs: None Education Level: high school Details: 12th Do you need help understanding health information?: Rarely 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 Pets and animals: No Sexually active: Yes Do you think of yourself as: straight/heterosexual Current gender identity: male What is your relationship status?: How often do you talk on the phone with friends or family?: three or more times per week How often do you get together with friends or relatives?: once per week How often do you attend rastafarian or adventism services?: 1-3 times per year Do you belong to any clubs or organized social groups?: no Panel score (0-1 are the most socially isolated patients): 1 What type of physical activity do you participate in: none Frequency: does not exercise Jeanna/Amish: None Special jeanna needs: No Seatbelt use: always Helmet use: No Drive intox or ride w/intox speedboat driver: No Firearms in home: Yes Firearms unloaded and locked: Yes Do you feel safe at home: Yes Victim of physical abuse: No Victim of emotional abuse: No Victim of sexual abuse: No Would you like helpful sources: No Meds Allergies and Home Medications Allergies Allergy/AdvReac Type Severity Reaction Status Date / Time Penicillins Allergy Intermediate Other (See Verified 06/22/24 06:23 Comment) Home Medications ?Medication ?Instructions ?Recorded ?Confirmed ?Type adalimumab 40 mg/0.8 mL 40 mg subcut Q2W 01/15/23 06/22/24 History subcutaneous syringe kit (Humira) albuterol sulfate 90 mcg/actuation 2 inh inhalation Q6H PRN shortness 05/09/24 06/22/24 Rx aerosol inhaler of breath or wheezing #18 grams tiotropium 2.5 mcg-olodaterol 2.5 2 puff inhalation DAILY #4 grams 05/09/24 06/22/24 Rx mcg/actuation mist for inhalation (Stiolto Respimat) Exam Const General: cooperative Neck Neck: supple Resp Effort & Inspection: normal respiratory effort Auscultation: clear to auscultation bilaterally Cardio Rate: regular rate Rhythm: regular rhythm GI Palpation: soft and no masses Neuro General: patient alert, patient awake and patient oriented x3 Results Last Vital Signs Temp 37 C 06/22/24 06:34 Pulse 96 H 06/22/24 06:34 Resp 20 06/22/24 06:34 BP 134/66 06/22/24 06:34 Pulse Ox 94 06/22/24 06:34 Time Spent Time spent with Patient: <40 minutes Time was spent: other
--- NOTE | 2024-06-22 07:22 | W.ANESPRE ---
General Info Date of Service Date Performed: 06/22/24 Height: 5 ft 8 in Weight: 86.7 kg Body Mass Index (BMI): 29.0 Surgical Procedure: Operation Date: 06/22/24 07:40 Proposed Procedure Side Surgeon p Cysto/Retrograde/Possible Transurethral Resection Bladder Tumor Bilateral Gerry Coffey MD Actual Procedure Side Surgeon p Cysto/Retrograde/Possible Transurethral Resection Bladder Tumor Bilateral Gerry Coffey MD Pre-Op Diagnosis Post-Op Diagnosis (1) Gross hematuria: (2) Family history of prostate cancer in father: Meds Allergies and Home Medications Allergies Allergy/AdvReac Type Severity Reaction Status Date / Time Penicillins Allergy Intermediate Other (See Verified 06/22/24 06:23 Comment) Home Medication ?Medication ?Instructions ?Recorded adalimumab 40 mg/0.8 mL 40 mg subcut Q2W 01/15/23 subcutaneous syringe kit (Humira) albuterol sulfate 90 mcg/actuation 2 inh inhalation Q6H PRN shortness 05/09/24 aerosol inhaler of breath or wheezing #18 grams tiotropium 2.5 mcg-olodaterol 2.5 2 puff inhalation DAILY #4 grams 05/09/24 mcg/actuation mist for inhalation (Stiolto Respimat) Current Visit Medications: Current Medications Generic Name Dose Route Start Last Admin Trade Name Freq PRN Reason Stop Dose Admin Ringer's Solution 1,000 mls @ 80 mls/hr 06/22/24 06:00 06/22/24 06:50 IV 06/22/24 23:59 80 mls/hr INFUSION LILIAM Administration IV Miscellaneous Supplies 1 each 06/22/24 06:00 Iv Access IV 06/22/24 23:59 DIRECTED LILIAM Sodium Chloride 0 ml 06/22/24 06:00 Normal Saline Flush 10 Ml Syr IV 06/22/24 23:59 PRN PRN Sodium Chloride 0 ml 06/22/24 06:00 Normal Saline 10 Ml Vial IJ 06/22/24 23:59 DIRECTED PRN Sterile Water 0 ml 06/22/24 06:00 Water,Injection,Sterile 10 Ml Vial IJ 06/22/24 23:59 DIRECTED PRN Trimethoprim/Sulfamethoxazole 1 tab 06/22/24 06:00 06/22/24 06:50 Sulfameth/Trimeth Ds Tab PO 06/22/24 23:59 1 tab PREOP LILIAM Administration PFSH Active Problems Active Problems: Problem Status Onset Code Abnormal CT lung screening Acute R91.8 Gross hematuria Acute R31.0 Family history of prostate cancer in father Acute Z80.42 Snoring Acute R06.83 COPD (chronic obstructive pulmonary disease) Chronic J44.9 Edema Acute R60.9 Right leg swelling Acute M79.89 Erectile dysfunction Acute N52.9 Nail dystrophy Acute L60.3 Pincer nail deformity Acute L60.8 Annual physical exam Acute Z00.00 Allergic rhinitis Acute J30.9 Tobacco use disorder Acute F17.200 Psoriasis Chronic 16 L40.9 Medical History Medical History Dyspnea Family history of colon cancer Impacted cerumen of left ear Nicotine dependence Psoriasis Colon cancer screening Screening cholesterol level Psoriasis Impacted cerumen of right ear (10/14/15) Tobacco Smoking/Tobacco Use Status: Former Tobacco Use Passive smoking exposure: Yes Second hand exposure: Yes Alcohol Alcohol Intake: current Alcohol intake frequency: 0-2 drinks per day Alcohol type: hard liquor Details: 6 or more drinks monthly Substance Use Substance use: Never Substance use type: does not use Counseling provided: none Vital Signs and Lab Results Vital Signs Most Recent Vital Signs in EMR: Most Recent Vital Signs Temp Pulse Resp BP Pulse Ox 37 C 96 H 20 134/66 94 06/22/24 06:34 06/22/24 06:34 06/22/24 06:34 06/22/24 06:34 06/22/24 06:34 Lab Results Blood Type / Crossmatch: No Data to Display Complete Blood Count: No Data to Display Complete Metabolic Panel: Creatinine 2.4 mg/dL (0.70-1.30) H 05/29/24 14:10 Est GFR (CKD-EPI 2020) 29.95 (mL/min/1.73m2) 05/29/24 14:10 Liver Function Panel: No Data to Display Coagulation Panel: No Data to Display Cardiac Panel: No Data to Display Arterial Blood Gas: No Data to Display Venous Blood Gas: No Data to Display Pancreas Panel: No Data to Display Thyroid Panel: No Data to Display Infectious Disease: No Data to Display Blood Cultures: No Data to Display Toxicology Panel: No Data to Display Anesthesia Assessment and Plan Anesthesia History Personal History: No History of Anesthesia Complications Family History: No Family History of Anesthesia Complications Exercise Tolerance Exercise Tolerance: Metabolic Equivalents>4 Pertinent Negatives Pertinent Negatives: No Symptoms of GERD, No Major Cardiovascular Symptoms or Complaints and No History of CVA/TIA Cardiac & Pulmonary Exam Cardiac Exam: Normal S1/S2 Heart Sounds Pulmonary Exam: Wheezing Present, Rhonchi Present and Active Dry Cough Implantable Cardiac Device Does patient have a Pacemaker or an ICD?: No Airway Exam Known Difficult Airway: No Mallampati Class: 4 Mouth Opening: Normal (> 3cm) Thyromental Distance: Greater than 3 cm Neck Range of Motion: Full ROM Neck Circumference: Normal Teeth Condition: Generalized Poor Dentition Airway Comments: Missing many upper and lower molars ASA Classification ASA Score: ASA 3 Emergency Case?: No NPO Status NPO Status: NPO Clears >2 hours, Solids >8 hours and NPO Clear Liquids>2 hours (Cough drop at 0500) Anesthesia Plan Resuscitation Status: Full Code Anesthesia Technique: Spinal Anesthesia Airway Planned: Natural Airway Monitors Used: Standard Monitors
--- NOTE | 2024-06-22 08:27 | PAPNONF_PTH ---
PATIENT: Warren Michael LOC: [facility] U#:[id number] AGE/SX: 63/M ROOM: RE06/22/[address]: Gerry Coffey MD : 1960 BED: DIS: 06/22/2024 SPEC #: [id number] RECD: 06/22/24 12:43 STATUS: MARGUERITE REQ #: [id number] TOMA: 06/22/24 08:[address]: Gerry Coffey DEPT: [facility] Cytology RECD BY: Ijeoma Avila ENTERED: 06/22/24 12:43 SP TYPE: [facility] DR: Melvin Vora DNP Tissues: 1 - BODY FLUID CYTO(SPUTUM/URINE)[facility] Procedures: BODY FLUID CYTO(URINE/SPUTUM) Comments: [id number] (TOTAL VOLUME = 80 ml) (REFRIGERATED) (40 ml URINE & 30 ml CYTOLYT ADDED IN 2 CONTAINERS)
--- NOTE | 2024-06-22 08:35 | DI.RAD_ITS ---
Exam(s) XR RETROGRADE IN OR EXAM: XR RETROGRADE IN OR CLINICAL HISTORY: (1) Gross hematuria TECHNIQUE: 2D and realtime digital imaging was performed. CONTRAST MATERIAL: Refer to procedure report. COMPARISON: CT CT ABDOMEN PELVIS WO from 05/29/2024 FINDINGS: Fluoroscopy was provided for Dr. Coffey during the performance of a retrograde evaluation of the santi l collecting system. Please refer to the procedure report for complete details. Ka,r=4.76 mGy IMPRESSION: RADIATION DOSE DELIVERED: 0.0 0.0 0
--- NOTE | 2024-06-22 08:35 | W.PM.DSUDISC ---
Date of service: 06/22/24 Discharge Plan Disposition Patient Disposition: Home Discharge Details Reason For Visit: cystoscopy Attending Provider: Gerry Coffey Primary Care Provider: Melvin Weldon Home Meds and New Rx's Prescriptions: No Action Stiolto Respimat 2.5-2.5 mcg/actuation mist 2 puff inhalation DAILY Qty: 4 12RF albuterol sulfate 90 mcg/actuation HFA aerosol inhaler 2 inh inhalation Q6H PRN (Reason: shortness of breath or wheezing) Qty: 18 12RF Humira 40 mg/0.8 mL syringe kit 40 mg subcut Q2W Discharge Instructions Additional Instructions: I took a biopsy of your urethra, so do not be surprised if you see an increased amount of blood in the urine followup @ 2weeks to review pathology results Discharge Orders Discharge Orders: Discharge Order (Routine); Ordered 06/22/24 Ordered By: Gerry Coffey DS: Diagnosis Discharge Diagnosis (1) Gross hematuria: Status: Acute
--- NOTE | 2024-06-22 08:39 | ROE_ITS ---
Operative Note Operative Note PRE-OP DIAGNOSIS: Hematuria POST-OP DIAGNOSIS: same PROCEDURE: cystoscopy, bilateral retrograde pyelogram, urethral biopsy SURGEON: Gerry Coffey ANESTHESIA TYPE: Local By Surgeon, General:No Airway and Spinal Refer to Anesthesia Record ESTIMATED BLOOD LOSS: 5 PATHOLOGY: other (1. urine for cytology 2. urethral biopsy) COMPLICATIONS: None Patient was transported to: PACU Patient's condition: stable Indications: This is a 63-year-old gentleman who has a history of intermittent gross hematuria. He also has a finding of a significant increase in his serum creatinine over the past few months. He was evaluated with a noncontrast CT of the abdomen and pelvis. There was a small nonobstructing stone in the right kidney but no hydronephrosis and no sign of mass. He presents for cystoscopy and retrograde pyelogram to complete his hematuria workup. Findings: abnormal appearing mucosa near external urethral sphincter Procedure Description: The patient was given an oral antibiotic and brought to the operating room on 06/22/2024. He underwent a spinal anesthetic, but at the time of the onset of the surgery, the spinal had not yet set up. He was then given general anesthesia without intubation. He was placed in the dorsal lithotomy position. His genitalia was prepped with Betadine. The genitalia were then draped. 2% Xylocaine jelly was instilled into the urethra to act as a local anesthetic. A 22 Tunisian rigid cystoscope was passed through the urethra into the bladder. Once the scope was advanced to the bladder, urine was collected and sent to the lab for a urine cytology. Urethra and bladder were inspected with the 30 degree lens. The pendulous, bulbar and membranous urethra appeared normal with no strictures. The mucosa that was located between the external sphincter and the Roberta montanum had a cobblestone appearance but there were no specific papillary or nodular lesions. The prostatic urethra showed lateral lobe enlargement. He again, no papillary or nodular lesions were seen. The bladder neck was entered and the bladder mucosa was inspected. Both ureteral orifices appeared normal with no blood coming from either side. Retrograde pyelograms were obtained by injecting Omnipaque through the access catheter under fluoroscopic guidance. Both ureters and collecting systems appeared normal with no filling defects. Both sides drained promptly on 5- minute drainage films. The remainder of the bladder was inspected using both a 30 and a 70 degree lens. No papillary or nodular areas of concern were seen within the bladder. We then withdrew the cystoscope back to the prostatic urethra where we took a biopsy of the cobblestone appearing mucosa using cold cup biopsy forceps. The biopsy was sent to the laboratory for permanent section. I then cauterized the biopsy site with bipolar cautery. The patient tolerated this procedure well with no complications. He was taken to the recovery room in stable condition. Date of Procedure: 06/22/24
[2024-06-22] MEDS: Lidocaine 2% Jelly 6 ML SYR (08:40)
[2024-06-22] MEDS: Omnipaque 300 MG/ML 50 ML BTL (08:40)
--- NOTE | 2024-06-22 09:10 | W.ANESPOSTOP ---
Postoperative Evaluation Date, Time and Location Date Performed: 06/22/24 Time Performed: 09:10 Patient Location: Day Surgery Unit Vital Signs Most Recent Imported Vital Signs: Most Recent Vital Signs Temp Pulse Resp BP Pulse Ox 36.8 C 96 H 24 137/71 92 06/22/24 08:50 06/22/24 08:56 06/22/24 08:56 06/22/24 08:55 06/22/24 08:56 Pain Score Most Recent Pain Score: Most Recent Pain Score Pain Level 0 06/22/24 08:50 Assessment Mental Status: Awake (Alert & Oriented to Patient Baseline) Airway and Respiratory Function: Patent airway with normal (patient baseline) respiratory exam Cardiovascular Function: Hemodynamically Stable Hydration Status: Adequately Hydrated Nausea & Vomiting: No Nausea or Vomiting Pain: Pt. Denies Any Pain Peripheral Nerve Block: Patient did not receive a nerve block
[2024-06-22] MEDS: Phenazopyridine 200 MG TAB PO (09:29)
== END 2024-06-22 10:43 | disposition home or self-care (01) ==
PROVIDERS: PCP Nurse Practitioner Family; Visit Provider Urology
PROC: 0TBB8ZZ Excision of Bladder, Via Natural or Artificial Opening Endoscopic (ICD-10-PCS; CPT 52204; principal; 2024-06-22 07:30)
DX: R31.0 Gross hematuria (principal); N42.89 Other specified disorders of prostate
CPT/HCPCS: 52204; 52005; 88305; 74420; 88104; J2250; J2401; J2704; Q9967

== ENCOUNTER 2024-06-27 13:15 | Outpatient (REF) | payer BC, SELFPAY ==
[2024-06-27 12:18] LABS: Abs Immature Grans 0.02 10^3/uL (0.0-0.06); Absolute Basophil Count 0.03 10^3/uL (0.0-0.2); Absolute Eosinophil Count 0.27 10^3/uL (0.0-0.7); Absolute Lymphocyte Count 0.97 10^3/uL (1.2-3.4); Absolute Monocyte Count 0.78 10^3/uL (0.1-0.8); Absolute Neutrophil Count 4.63 10^3/uL (1.2-6.7); Basophils % 0.4 %; HCT 26.5 % (40.0-50.0); Immature Grans % 0.3 %; Lymphocytes % 14.5 %; MCH 27.7 pg (27.0-33.0); MCHC 30.2 % (32.0-36.0); MCV 92 fL (80-95); Monocytes % 11.6 %; Neutrophils % 69.2 %; Platelet Count 112 10^3/uL (130-400); RBC 2.89 10^6/uL (4.36-5.78); RDW 16.7 % (11.8-14.1); RDW-SD 57.1 fL
[2024-06-27 12:29] LABS: ALT 22 U/L (16-63); AST 28 U/L (15-37); Albumin 2.5 g/dL (3.4-5.0); Alkaline Phosphatase 104 U/L (46-116); Anion Gap 11.9 mmol/L (3-11); BUN 56 mg/dL (7-18); Bilirubin, Total 0.5 mg/dL (0.2-1.0); CO2 23.1 mmol/L (21.0-32.0); Calcium 8.5 mg/dL (8.5-10.1); Chloride 105 mmol/L (98-107); Estimated GFR 16.22 (mL/min/1.73m2); Glucose 116 mg/dL (74-106); Potassium 3.4 mmol/L (3.5-5.1); Sodium 140 mmol/L (136-145); Total Protein 7.6 g/dL (6.4-8.2)
[2024-06-27 12:36] LABS: Diff Comment Diff Reviewed; Hypochromasia 2+
[2024-06-30 17:10] LABS: Myeloperoxidase Ab IgG <0.2 U (>=0.4); Proteinase 3 Ab (PR3) <0.2 U
== END 2024-06-27 13:16 | disposition home or self-care (01) ==
LOC: LBN 13:15
PROVIDERS: PCP Nurse Practitioner Family; Visit Provider Physician Assistant Surgical
DX: R06.09 Other forms of dyspnea (principal); J44.9 Chronic obstructive pulmonary disease, unspecified; R60.0 Localized edema; R31.0 Gross hematuria; R91.8 Other nonspecific abnormal finding of lung field
CPT/HCPCS: 80053; 83516; 85025

== ENCOUNTER 2024-06-27 14:15 | Inpatient (IN) | payer BC, SELFPAY ==
[2024-06-27] VITALS (31 sets, daily range): BP systolic 143–164; BP diastolic 54–88; PULSE 85–101; RESP 15–25; TEMP 36.7–37; O2SAT 94–99
--- NOTE | 2024-06-27 14:30 | DI.US_ITS ---
Exam(s) US RENAL EXAM: US RENAL CLINICAL HISTORY: new onset kidney failure, evaluate obstruction. TECHNIQUE: Chavez scale imaging and color doppler were used. COMPARISON: CT CT ABDOMEN PELVIS WO from 05/29/2024 FINDINGS: Right kidney: 12.6cm Echogenicity: Normal Hydronephrosis: No Cyst or mass: No Nephrolithiasis: No Left kidney: 12.6cm Echogenicity: Normal Hydronephrosis: No Cyst or mass: No Nephrolithiasis: No Bladder:Normal. Prevoid vol:222 cc Postvoid vol:17 cc A 2.4 centimeter hypoechoic area is noted in the right lobe of the liver at the level of the right ki dney. IMPRESSION: No evidence of hydronephrosis. 2.4 centimeter hypoechoic area in the right lobe of the liver. Nonemergent contrast-enhanced CT or M RI could be considered for further evaluation. Unexpected findings DATA REPOSITORY:
--- NOTE | 2024-06-27 14:40 | ED.GENADUL_ITS ---
Discharge Plan Discharge Details Chief Complaint: Nk/Back Pain Primary Care Provider: Melvin Weldon ED Provider: Apolonia Gibson Home Meds and New Rx's Prescriptions: No Action Stiolto Respimat 2.5-2.5 mcg/actuation mist 2 puff inhalation DAILY Qty: 4 12RF albuterol sulfate 90 mcg/actuation HFA aerosol inhaler 2 inh inhalation Q6H PRN (Reason: shortness of breath or wheezing) Qty: 18 12RF Breztri Aerosphere 160-9-4.8 mcg/actuation HFA aerosol inhaler 2 inh inhalation BID Qty: 10.7 6RF Humira 40 mg/0.8 mL syringe kit 40 mg subcut Q2W HPI General Date/Time Provider Initiated Documentation: 06/27/24 14:16 . HPI Narrative: Warren is a 58 year old male who presents to the emergency department today for evaluation of kidney failure. He was evaluated by pulmonology today, had routine labs performed. Creatinine was noted to be elevated (4.0 today vs 2.4 05/29/24; new anemia is also noted (8.0/26.5 today vs 12.4/39.5 on 03/27/24). Has been sick on-and-off all winter, reports he has occasional leg swelling. Also has been experiencing hematuria for the last few months, being evaluated by Dr Coffey (recently had prostate biopsy on 06/22/24). Hematuria has been more prominent the last few days. Denies recent fever/chills, headache, dizziness, congestion, nosebleeds, chest pains, palpitations, change in baseline shortness of breath, nausea/vomiting, change in urine output (other than hematuria), unexpected weight loss, abdominal pain. He admits to occasional dark stools (thinks this may be due to eating blackberries), none in the last few days. Normal BM today, no blood in stool. Easy bruising for the last year, no recent changes. Past medical history is significant for COPD and psoriasis (on humira). +FMH of prostate cancer and kidney disease (unsure of type). Physical exam reassuring. Warren is alert and oriented, in no acute distress. Abdomen is soft, nondistended, nontender to palpation with normoactive BS. No CVA tenderness. Easy work of breathing, coarse lung sounds scattered throughout. Normal heart sounds. No JVD. Mild bilateral lower extremity edema up to the knees. MMM. D/dx includes but is not limited to: prerenal azotemia, renal obstruction, glomerulonephritis, ATN, interstitial nephritis, neoplasm. New onset anemia concerning for coagulopathy vs blood loss by hematuria vs occult blood loss. I independently interpreted the following tests: I did review previous medical records, including pulmonolgy visit today and urology operative reports and clinic notes. Warren has had painless hematuria x 3 months, occuring daily with occasional clots. No flank pain or UTI sx; CT scan was remarkable for a small nonobstructing R kidney stone with no obvious masses or hydronephrosis. Handoff report given to PHOEBE Mendoza, evening CE Related Data Home Medications ?Medication ?Instructions ?Recorded ?Confirmed adalimumab 40 mg/0.8 mL 40 mg subcut Q2W 01/15/23 06/27/24 subcutaneous syringe kit (Humira) albuterol sulfate 90 mcg/actuation 2 inh inhalation Q6H PRN shortness 05/09/24 06/27/24 aerosol inhaler of breath or wheezing #18 grams tiotropium 2.5 mcg-olodaterol 2.5 2 puff inhalation DAILY #4 grams 05/09/24 06/27/24 mcg/actuation mist for inhalation (Stiolto Respimat) budesonide 160 mcg-glycopyr 9 2 inh inhalation BID #10.7 grams 06/27/24 06/27/24 mcg-formot 4.8 mcg/actuation HFA inhaler (Breztri Aerosphere) Previous Rx's ?Medication ?Instructions ?Recorded albuterol sulfate 90 mcg/actuation 2 inh inhalation Q6H PRN shortness 05/09/24 aerosol inhaler of breath or wheezing #18 grams tiotropium 2.5 mcg-olodaterol 2.5 2 puff inhalation DAILY #4 grams 05/09/24 mcg/actuation mist for inhalation (Stiolto Respimat) budesonide 160 mcg-glycopyr 9 2 inh inhalation BID #10.7 grams 06/27/24 mcg-formot 4.8 mcg/actuation HFA inhaler (Breztri Aerosphere) Allergies Allergy/AdvReac Type Severity Reaction Status Date / Time Penicillins Allergy Intermediate Other (See Verified 06/27/24 14:27 Comment) General Stated Complaint: Nk/Back Pain ROMELIA: 3 Review of Systems Narrative: see HPI Exam Const General: cooperative, healthy appearing, comfortable, no acute distress and well developed Nutritional Appearance: average body habitus Orientation: alert and oriented x3 HENMT Head: normal to inspection Mouth: moist mucous membranes Resp Effort & Inspection: normal respiratory effort and able to speak in complete sentences Auscultation: rales (scattered bilaterally) Cardio Rate: regular rate Rhythm: regular rhythm Pulses: radial pulses present GI Inspection: normal to inspection and non-distended Palpation: soft, not firm, no guarding and nontender Auscultation: normal bowel sounds General: No CVA tenderness Skin General skin exam: ecchymosis (faint, L forearm) Extrem Right upper extremity: edema (lower leg, mild) Left upper extremity: edema (lower leg, mild) Course Vital Signs Vital signs: Vital Signs Temperature 36.7 C 06/27/24 14:19 Pulse 94 H 06/27/24 14:19 Respiratory Rate 20 06/27/24 14:19 Blood Pressure 154/73 H 06/27/24 14:19 Pulse Oximetry 95 06/27/24 14:19 Temperature 36.7 C 06/27/24 14:19 Pulse 94 H 06/27/24 14:19 Respiratory Rate 20 06/27/24 14:19 Blood Pressure 154/73 H 06/27/24 14:19 Blood Pressure Position Sitting 06/27/24 14:19 Pulse Oximetry 95 06/27/24 14:19 Oxygen Delivery Method Room Air 06/27/24 14:19 Oxygen Flow Rate 0 06/27/24 14:19 Medical Decision Making Imaging Data Radiologic Study: Radiologist's impression: Patient Name: Warren Michael Unit #: [id number] Loc: ER Ordering Provider: Apolonia Gibson Status: REG ER Primary Care Provider: Melvin Weldon NP Date of Exam: 06/27/24 Sex: M Admission Date: 06/27/24 : 1960 Age: 63 Exam(s) US RENAL EXAM: US RENAL CLINICAL HISTORY: new onset kidney failure, evaluate obstruction. TECHNIQUE: Chavez scale imaging and color doppler were used. COMPARISON: CT CT ABDOMEN PELVIS WO from 05/29/2024 FINDINGS: Right kidney: 12.6cm Echogenicity: Normal Hydronephrosis: No Cyst or mass: No Nephrolithiasis: No Left kidney: 12.6cm Echogenicity: Normal Hydronephrosis: No Cyst or mass: No Nephrolithiasis: No Bladder:Normal. Prevoid vol:222 cc Postvoid vol:17 cc A 2.4 centimeter hypoechoic area is noted in the right lobe of the liver at the level of the right kidney. IMPRESSION: No evidence of hydronephrosis. 2.4 centimeter hypoechoic area in the right lobe of the liver. Nonemergent contrast-enhanced CT or MRI could be considered for further evaluation. Unexpected findings Quality:SDOH Health Related Social Needs: Health related social needs details N/A PFSH All Active Problems (Updated 06/27/24 @ 10:41 by PHOEBE Ortiz) Lower extremity edema (Acute) R>L Dyspnea on exertion (Acute) Former smoker (Acute) Abnormal CT lung screening (Acute) Gross hematuria (Acute) Family history of prostate cancer in father (Acute) Snoring (Acute) COPD (chronic obstructive pulmonary disease) (Chronic) Edema (Acute) Right leg swelling (Acute) Erectile dysfunction (Acute) Nail dystrophy (Acute) Pincer nail deformity (Acute) Annual physical exam (Acute) Allergic rhinitis (Acute) Tobacco use disorder (Acute) Psoriasis (Chronic 10/21/15) Medical History Dyspnea Family history of colon cancer Impacted cerumen of left ear Nicotine dependence Psoriasis Colon cancer screening Screening cholesterol level Psoriasis Impacted cerumen of right ear (10/14/15) Family History Mother Diabetes Father Neoplasm PROSTATE Sister Neoplasm BREAST Daughter No problems noted. Social History Smoking/Tobacco Use Status: Former Tobacco Use Quit Date: 05/21/24 Tobacco: How many years used: 40 Quit status: considering quitting Second Hand Exposure: Yes Smoking risk assessment performed?: Yes Alcohol Intake: current Alcohol Intake frequency: 0-2 drinks per day Alcohol type: hard liquor Details: 6 or more drinks monthly Drug use: Never Substance use type: does not use Counseling provided: none Adopted: No Caregiver/Support person: No Household members: none Housing: house Number of Children: 1 number of grandchildren: 0 Communication Needs: None Education Level: high school Details: 12th Do you need help understanding health information?: Rarely 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 Pets and animals: No Sexually active: Yes Do you think of yourself as: straight/heterosexual Current gender identity: male What is your relationship status?: How often do you talk on the phone with friends or family?: three or more times per week How often do you get together with friends or relatives?: once per week How often do you attend anabaptist or sikhism services?: 1-3 times per year Do you belong to any clubs or organized social groups?: no Panel score (0-1 are the most socially isolated patients): 1 What type of physical activity do you participate in: none Frequency: does not exercise Jeanna/Gnosticism: None Special jeanna needs: No Seatbelt use: always Helmet use: No Drive intox or ride w/intox corporate driver: No Firearms in home: Yes Firearms unloaded and locked: Yes Do you feel safe at home: Yes Victim of physical abuse: No Victim of emotional abuse: No Victim of sexual abuse: No Would you like helpful sources: No PAWSS Have you Been Recently Intoxicated or Drunk Within the Last 30 days?: No Have you Ever Experienced Previous Episodes of Alcohol Withdrawal?: No Have you ever Experienced Withdrawal Seizures?: No Have you ever Experienced Delirium Tremens(DT)s?: No Have you ever undergone Alcohol Rehabilitation Treatment (i.e, inpt ot outpatient treatment programs)?: No Have you ever Experienced Blackouts?: No Have you ever Combined Alcohol with other Downers within the last 90 days?: No Have you ever Combined Alcohol with any other Substance of Abuse during the last 90 days?: No Positive Blood Alcohol level on Presentation? [PCS.BAL]: No Evidence of Increased Autonomic Activity (i.e. HR>120, tremor, sweating, agitation, nausea)?: No Result: 0
[2024-06-27 15:49] LABS: Bilirubin Negative (Negative); Blood Large (Negative); Clarity Sl Cloudy (Clear); Glucose Negative (Negative); Ketones Negative (Negative); Leukocyte Esterase Negative (Negative); Nitrite Negative (Negative); Specific Gravity 1.015 (1.005-1.025); Urobilinogen 0.2 mg/dL (Up to 0.2)
[2024-06-27 15:56] LABS: Bacteria Moderate HPF (Negative); C & S Indicated? Yes; Casts Negative LPF (Negative); Crystals Negative HPF (Negative); Epithelial Cells Rare HPF (Negative); Mucus Moderate (Negative); Other Cells Negative (Negative); RBC >50 HPF (0-2)
[2024-06-27 16:01] LABS: COMMENT (LAB VIEW ONLY) 42.24 mg/dL; PROTEIN 193.2 mg/dL; Prot/Crea Ur Ratio 4.57
[2024-06-27] MEDS: Normal Saline 1,000 ML 1000 ML IV (16:04)
[2024-06-27 16:06] LABS: INR 1.1 (0.9-1.1); PTT Activated 24.1 sec (20.6-30.2); Prothrombin Time 10.8 sec (9.1-11.1)
[2024-06-27 16:14] LABS: Creatine Kinase 88 U/L (39-308)
--- NOTE | 2024-06-27 16:48 | NUR.NOTE ---
Called DI and asked for Images to be Pushed to [facility] @ [phone]
[2024-06-27 18:14] LABS: Abs Immature Grans 0.01 10^3/uL (0.0-0.06); Absolute Basophil Count 0.03 10^3/uL (0.0-0.2); Absolute Eosinophil Count 0.24 10^3/uL (0.0-0.7); Absolute Monocyte Count 0.86 10^3/uL (0.1-0.8); Absolute Neutrophil Count 3.91 10^3/uL (1.2-6.7); Basophils % 0.5 %; HCT 23.3 % (40.0-50.0); HGB 7.2 g/dL (13.5-17.5); Immature Grans % 0.2 %; Lymphocytes % 15.1 %; MCH 28.2 pg (27.0-33.0); MCHC 30.9 % (32.0-36.0); MCV 91 fL (80-95); MPV 8.8 fL (8.0-11.0); Monocytes % 14.5 %; Neutrophils % 65.7 %; Platelet Count 126 10^3/uL (130-400); RBC 2.55 10^6/uL (4.36-5.78); RDW 16.6 % (11.8-14.1); RDW-SD 56.1 fL; WBC 5.95 10^3/uL (4.4-10.8)
[2024-06-27 18:41] LABS: Anion Gap 12.8 mmol/L (3-11); BUN 50 mg/dL (7-18); CO2 19.2 mmol/L (21.0-32.0); CREATININE 3.5 mg/dL (0.70-1.30); Calcium 7.9 mg/dL (8.5-10.1); Chloride 107 mmol/L (98-107); Estimated GFR 19.04 (mL/min/1.73m2); Glucose 93 mg/dL (74-106); Potassium 3.7 mmol/L (3.5-5.1); Sodium 139 mmol/L (136-145)
--- NOTE | 2024-06-27 18:49 | HPE_ITS ---
Date of service: 06/27/24 Time of Service: 18:50 Assessment and Plan Assessment and plan (1) Glomerulonephritis: Status: Acute Assessment and plan: This is a patient with subacute progressive renal failure with hematuria and proteinuria consistent with a clinical diagnosis of glomerulonephritis. He has had a cystoscopy, noncontrast CT, renal ultrasound, and retrograde pyelogram that did show stones but no other anatomical causes for bleeding. Of note, during this same time he has had progressing of his dyspnea and a recent CT chest that showed nodular infiltrate. 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 He has been accepted by neprology at [facility] pending bed. Recommended labs noted, but given these are sendouts to [facility] will defer these to [facility] as we are told to expect a bed tomorrow. Renal diet, to clears at midnight anticipating sedation for renal biospy, accepted by Dr. Becker on medicine service when bed available. (2) Liver mass, right lobe: Status: Acute Assessment and plan: incidental, address on follow up. MRI with contrast would be most useful (3) COPD (chronic obstructive pulmonary disease): Status: Chronic Assessment and plan: Pulmonology note today reviewed, changed from LABA/LAMA to ICS/LABA/LAMA. Continue this, though also seems to have inflammatory lung disease. (4) Abnormal CT lung screening: Status: Acute Assessment and plan: As above he has had progression in respiratory symptoms in recent months with CT showing (5) Kidney failure: Status: Chronic Assessment and plan: subacute as above, appears intrinsic. (6) Blood loss anemia: Status: Acute Assessment and plan: Progression of anemia over weeks to months. Likely contributing to dypnea on exertion. Follow. Check iron/b12. (7) Tobacco use disorder: Status: Acute Assessment and plan: continues low level smoking. Declines NRT for now. Discussed cessation. (8) Thrombocytopenia: Status: Chronic Assessment and plan: Noted since 02/12. No clear cirrhosis on non-contrast CT but spleen borderline enlarged and FIB-4 is concerning. This could be related to inflammatory condition but should assess for cirrhosis non-acutely as well. HIV and HCV screen will be done at [facility], send outs here. Get b12 with AM labs. (9) DVT prophylaxis: Status: Acute Assessment and plan: with ongoing bleeding and anemia, pending biopsy, use TEDs/SCDs History of Present Illness History of Present Illness Chief Complaint: elevated creatinine, flank pain N arrative: 63 yo M with history of COPD, former smoker, psoriasis on TNF-alpha inhibitor therapy, with 3 months of both ongoing hematuria and progressive dyspnea on exertion and nodular infiltrate on chest CT who had acute elevation of creatinine noted on outpatient labs today and was directed to the ED for evaluation. He had seen pulmonology today and had routine labs done. He was being evaluated for the increasing dyspnea on exertion despite using his Stiolto. Creatinine returned 4.0, was 2.4 05/29 and 1.0 03/27. Also progressive anemia with hemoglobin 8.0 down from 12.3. He denies new symptoms today. He has ongoing red blood/dark blood in urine. SHAW has been slowly progressive, not acutely worse today. Some slight dull flank pain on right for the past few days. No chest pain or abdominal pain, no dizziness or palpitations. No fever or cough. No blood in stool or melena or other sources of bleeding. he has been urinating, no pain. He has been eating and drinking normally. Review of Systems All systems reviewed & are unremarkable except as noted in HPI and below Integumentary/Breasts Skin/Breast: Reports rash (a little psoriasis on legs at times, but not bad currently) and Denies skin ulcer PFSH All Active Problems (Updated 06/27/24 @ 22:08 by Raymundo Martin) Thrombocytopenia (Chronic) Kidney failure (Chronic) Blood loss anemia (Acute) DVT prophylaxis (Acute) Liver mass, right lobe (Acute) Glomerulonephritis (Acute) Lower extremity edema (Acute) R>L Dyspnea on exertion (Acute) Former smoker (Acute) Abnormal CT lung screening (Acute) Gross hematuria (Acute) Family history of prostate cancer in father (Acute) Snoring (Acute) COPD (chronic obstructive pulmonary disease) (Chronic) Edema (Acute) Right leg swelling (Acute) Erectile dysfunction (Acute) Nail dystrophy (Acute) Pincer nail deformity (Acute) Psoriasis (Chronic 10/21/15) Tobacco use disorder (Acute) Allergic rhinitis (Acute) Annual physical exam (Acute) Medical History Dyspnea Psoriasis Family history of colon cancer Impacted cerumen of right ear (10/14/15) Impacted cerumen of left ear Nicotine dependence Psoriasis Colon cancer screening Screening cholesterol level Family History Mother Diabetes Father Neoplasm PROSTATE Sister Neoplasm BREAST Daughter No problems noted. Social History (Updated 06/27/24 @ 21:57 by Raymundo Martin) Smoking/Tobacco Use Status: Current-Occasional Tobacco Type: cigarettes Tobacco: How many years used: 40 Quit status: has quit before Second Hand Exposure: Yes Counseling given: provider counseling Smoking risk assessment performed?: Yes Alcohol Intake: current Alcohol Intake frequency: 0-2 drinks per day Alcohol type: hard liquor Details: 6 or more drinks monthly Drug use: Never Substance use type: does not use Counseling provided: none Adopted: No Caregiver/Support person: No Household members: none Housing: house Number of Children: 1 number of grandchildren: 0 Communication Needs: None Education Level: high school Details: 12th Do you need help understanding health information?: Rarely 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 Pets and animals: No Sexually active: Yes Do you think of yourself as: straight/heterosexual Current gender identity: male What is your relationship status?: How often do you talk on the phone with friends or family?: three or more times per week How often do you get together with friends or relatives?: once per week How often do you attend evangelical or taoism services?: 1-3 times per year Do you belong to any clubs or organized social groups?: no Panel score (0-1 are the most socially isolated patients): 1 What type of physical activity do you participate in: none Frequency: does not exercise Jeanna/Islam: None Special jeanna needs: No Seatbelt use: always Helmet use: No Drive intox or ride w/intox class a regional truck driver: No Firearms in home: Yes Firearms unloaded and locked: Yes Do you feel safe at home: Yes Victim of physical abuse: No Victim of emotional abuse: No Victim of sexual abuse: No Would you like helpful sources: No Additional Social history: [employer] F[employer] in [employer]. Lives in [place] Meds Allergies and Home Medications Allergies Allergy/AdvReac Type Severity Reaction Status Date / Time Penicillins Allergy Intermediate Other (See Verified 06/27/24 14:27 Comment) Home Medications ?Medication ?Instructions ?Recorded ?Confirmed ?Type albuterol sulfate 90 mcg/actuation 2 inh inhalation Q6H PRN shortness 05/09/24 06/27/24 Rx aerosol inhaler of breath or wheezing #18 grams tiotropium 2.5 mcg-olodaterol 2.5 2 puff inhalation DAILY #4 grams 05/09/24 06/27/24 Rx mcg/actuation mist for inhalation (Stiolto Respimat) adalimumab 40 mg/0.4 mL 40 mg subcut Q14D 06/27/24 06/27/24 History subcutaneous pen kit (Humira(CF) Pen) budesonide 160 mcg-glycopyr 9 2 inh inhalation BID #10.7 grams 06/27/24 06/27/24 Rx mcg-formot 4.8 mcg/actuation HFA inhaler (Breztri Aerosphere) Exam Narrative Exam Narrative: GEN: Alert and oriented x 4, pleasant and cooperative, gives linear history. No acute distress at rest. HEENT: Head atraumatic. Conjunctiva clear, no icterus. PEERL, EOMI. no rhinorrhea. MMM, OP benign. Neck is supple with no masses or lymphadenopathy, trachea midline LUNGS: Dry crackles bilateral bases, no wheeze or rhonchi, normal effort at rest. Speaking in full sentences CV: RRR with no murmurs, gallops, or rubs. ABD: active bowel sounds, soft, nontender and nondistended. No masses. EXT: no cyanosis, clubbing. Warm, 1+ edema in LE MSK: No joint redness or swelling. No CVAT. NEURO: CN 2-12 grossly intact. Normal movement of 4 extremities with symmetric strength. Normal speech and coordination. No tremor SKIN: No rashes or open wounds. large angiomata on chest PSYCH: normal mood and affect, normal thought process. Results Imaging Additional studies: RECENT STUDIES: 06/22/24 retrograde pyelogram: Retrograde pyelograms were obtained by injecting Omnipaque through the access catheter under fluoroscopic guidance. Both ureters and collecting systems appeared normal with no filling defects CT chest 05/29/24: 1. Compared to the prior unremarkable CT scan of 05/26/2023 there are now numerous bilateral sub cm noncalcified nodular infiltrates throughout both lung staton which will require close follow-up. There are no associated pleural effusions. 2. Slightly enlarged subcarinal lymph nodes are noted US - kidney/bladder: image reviewed (No evidence of hydronephrosis. 2.4 centimeter hypoechoic area in the right lobe of the liver. Nonemergent contrast-enhanced CT or MRI could be considered for further evaluation. Unexpected findings DATA REPOSITORY: ) Labs 06/27/24 18:06 06/27/24 18:06 Labs: Laboratory Results - last 24 hr 06/27/24 06/27/24 06/27/24 11:05 15:20 15:46 WBC RBC Hgb Hct MCV MCH MCHC RDW Plt Count MPV Immature Gran % Neutrophils % Lymphocytes % Monocytes % Eosinophils % Basophils % Nucleated RBC % Absolute Neutrophils Absolute Lymphocytes Absolute Monocytes Absolute Eosinophils Absolute Basophils PT 10.8 INR 1.1 APTT 24.1 Sodium Potassium Chloride Carbon Dioxide Anion Gap BUN Creatinine Est GFR (CKD-EPI 2020) Glucose Calcium Creatine Kinase 88 Urine Color Red Urine Clarity Sl Cloudy Urine pH 5.0 Ur Specific [place] 1.015 Urine Protein >=300 H Urine Ketones Negative Urine Blood Large H Urine Nitrite Negative Urine Bilirubin Negative Urine Urobilinogen 0.2 Ur Leukocyte Esterase Negative Urine RBC >50 H Urine WBC 5-10 Ur Epithelial Cells Rare Urine Crystals Negative Urine Bacteria Moderate Urine Casts Negative Urine Mucus Moderate Urine Other Negative Ur Culture Indicated? Yes Ur Random Creatinine 42.24 U Random Total Protein 193.2 U Walker Prot/Creat Ratio 4.57 Urine Glucose Negative ABO/Rh Antibody Screen 06/27/24 06/27/24 16:18 18:06 WBC 5.95 RBC 2.55 L Hgb 7.2 L Hct 23.3 L MCV 91 MCH 28.2 MCHC 30.9 L RDW 16.6 H Plt Count 126 L MPV 8.8 Immature Gran % 0.2 Neutrophils % 65.7 Lymphocytes % 15.1 Monocytes % 14.5 Eosinophils % 4.0 Basophils % 0.5 Nucleated RBC % 0.0 Absolute Neutrophils 3.91 Absolute Lymphocytes 0.90 L Absolute Monocytes 0.86 H Absolute Eosinophils 0.24 Absolute Basophils 0.03 PT INR APTT Sodium 139 Potassium 3.7 Chloride 107 Carbon Dioxide 19.2 L Anion Gap 12.8 H BUN 50 H Creatinine 3.5 H Est GFR (CKD-EPI 2020) 19.04 Glucose 93 Calcium 7.9 L Creatine Kinase Urine Color Urine Clarity Urine pH Ur Specific [place] Urine Protein Urine Ketones Urine Blood Urine Nitrite Urine Bilirubin Urine Urobilinogen Ur Leukocyte Esterase Urine RBC Urine WBC Ur Epithelial Cells Urine Crystals Urine Bacteria Urine Casts Urine Mucus Urine Other Ur Culture Indicated? Ur Random Creatinine U Random Total Protein U Walker Prot/Creat Ratio Urine Glucose ABO/Rh A Positive Antibody Screen NEGATIVE Last Vital Signs Temp 36.7 C 06/27/24 14:19 Pulse 92 H 06/27/24 18:45 Resp 25 H 06/27/24 18:45 BP 150/54 H 06/27/24 18:45 Pulse Ox 97 06/27/24 18:45 PAWSS Have you Been Recently Intoxicated or Drunk Within the Last 30 days?: No Have you Ever Experienced Previous Episodes of Alcohol Withdrawal?: No Have you ever Experienced Withdrawal Seizures?: No Have you ever Experienced Delirium Tremens(DT)s?: No Have you ever undergone Alcohol Rehabilitation Treatment (i.e, inpt ot outpatient treatment programs)?: No Have you ever Experienced Blackouts?: No Have you ever Combined Alcohol with other Downers within the last 90 days?: No Have you ever Combined Alcohol with any other Substance of Abuse during the last 90 days?: No Positive Blood Alcohol level on Presentation? [PCS.BAL]: No Evidence of Increased Autonomic Activity (i.e. HR>120, tremor, sweating, agitation, nausea)?: No Result: 0 Time Spent Time spent with Patient: 55-74 minutes Time was spent: preparing to see the patient(eg.review tests), obtaining and/or reviewing separately otained hiistory, ordering medications,tests, procedures, referring, communicating with other health healthcare marketer, indepentently interpreting results, counseling the patient and care coordination
--- NOTE | 2024-06-27 18:49 | W.ED.FU ---
Follow Up Plan: Case discussed with Dr. Ahmadi's, hospitalist at [facility] who accepts patient to [facility] at 1830 they do not currently have a bed and will likely be unable to accept the patient until the morning. On repeat CBC and CMP patient is anemic likely dilutional hemoglobin 7.2 hemodynamically stable will recheck in the morning. Denies rectal bleeding has had gross hematuria for 2 months including on urinalysis today. Recommendation per Dr. Romano ingestive is to add cryo globin free light change ankle level dsDNA HIV hepatitis B and C VALERY paraprotein urine albumin to creatinine ratio and complement B3 and before, however secondary to labs being sent to [facility] in a patient that is been accepted to [facility] I am not sure that it makes sense to start these labs at this time. We unfortunately do not perform these lab tests in our lab. Will hold on transfusion at this time patient wishes to be full CODE STATUS agreeable to admission remains hemodynamically stable alert and oriented
--- NOTE | 2024-06-27 20:32 | W.PC.ACHO ---
Registration Status: Primary Language: Preferred Language: ED Information & Data Chief Complaint Nk/Back Pain 06/27/24 14:43 Other Complaint Urinary 06/27/24 14:19 Triage Note PT's executive marketing assistant requested 06/27/24 14:19 that the PT come into the ED for assessment regarding increased/abnormal lab results. PT's only complaint is tender mild pain in R lumbar spine area. PT reports blood in urine likely related to recent prostate biopsy. Medical / Surgical History (Last Reviewed 06/27/24 @ 19:56 by Raymundo Martin) Dyspnea Family history of colon cancer Impacted cerumen of left ear Nicotine dependence Psoriasis Colon cancer screening Screening cholesterol level Psoriasis Impacted cerumen of right ear (10/14/15) Most Recent Vital Signs Temperature 36.7 C 06/27/24 14:19 Pulse 92 H 06/27/24 18:45 Pulse 91 H 06/27/24 18:45 Respiratory Rate 25 H 06/27/24 18:45 Blood Pressure 150/54 H 06/27/24 18:45 Blood Pressure Mean 89 06/27/24 18:45 Blood Pressure Position Sitting 06/27/24 14:19 Pulse Oximetry 97 06/27/24 18:45 Oxygen Delivery Method Room Air 06/27/24 14:19 Oxygen Flow Rate 0 06/27/24 14:19 Allergies Penicillins Allergy (Intermediate, Verified 06/27/24 14:27) Other (See Comment) increased psorias IV IV Catheter Type [Right Peripheral IV Antecubital] IV Catheter Gauge [Right 18 Antecubital] Diet Orders Category Date Time Status Renal [DIET] Nutrition 06/27/24 Dinner Active Diagnostics 06/27/24 06/27/24 06/27/24 Range/Units 18:06 16:18 15:46 WBC 5.95 (4.4-10.8) 10^3/uL RBC 2.55 L (4.36-5.78) 10^6/uL Hgb 7.2 L (13.5-17.5) g/dL Hct 23.3 L (40.0-50.0) % MCV 91 (80-95) fL MCH 28.2 (27.0-33.0) pg MCHC 30.9 L (32.0-36.0) % RDW 16.6 H (11.8-14.1) % Plt Count 126 L (130-400) 10^3/uL MPV 8.8 (8.0-11.0) fL Immature Gran % 0.2 % Neutrophils % 65.7 % Lymphocytes % 15.1 % Monocytes % 14.5 % Eosinophils % 4.0 % Basophils % 0.5 % Nucleated RBC % 0.0 (0.0-0.3) % Absolute Neutrophils 3.91 (1.2-6.7) 10^3/uL Absolute Lymphocytes 0.90 L (1.2-3.4) 10^3/uL Absolute Monocytes 0.86 H (0.1-0.8) 10^3/uL Absolute Eosinophils 0.24 (0.0-0.7) 10^3/uL Absolute Basophils 0.03 (0.0-0.2) 10^3/uL PT 10.8 (9.1-11.1) sec INR 1.1 (0.9-1.1) APTT 24.1 (20.6-30.2) sec Sodium 139 (136-145) mmol/L Potassium 3.7 (3.5-5.1) mmol/L Chloride 107 (98-107) mmol/L Carbon Dioxide 19.2 L (21.0-32.0) mmol/L Anion Gap 12.8 H (3-11) mmol/L BUN 50 H (7-18) mg/dL Creatinine 3.5 H (0.70-1.30) mg/dL Est GFR (CKD-EPI 2020) 19.04 (mL/min/1.73m2) Glucose 93 (74-106) mg/dL Calcium 7.9 L (8.5-10.1) mg/dL Creatine Kinase (39-308) U/L Urine Color (Yellow) Urine Clarity (Clear) Urine pH (5-8) Ur Specific [place] (1.005-1.025) Urine Protein (Neg-Trace) mg/dL Urine Ketones (Negative) mg/dL Urine Blood (Negative) Urine Nitrite (Negative) Urine Bilirubin (Negative) Urine Urobilinogen (Up to 0.2) mg/dL Ur Leukocyte Esterase (Negative) Urine RBC (0-2) HPF Urine WBC (0-5) HPF Ur Epithelial Cells (Negative) HPF Urine Crystals (Negative) HPF Urine Bacteria (Negative) HPF Urine Casts (Negative) LPF Urine Mucus (Negative) Urine Other (Negative) Ur Culture Indicated? Ur Random Creatinine mg/dL U Random Total Protein mg/dL U [place] Prot/Creat Ratio Urine Glucose (Negative) mg/dL ABO/Rh A Positive Antibody Screen NEGATIVE 06/27/24 06/27/24 Range/Units 15:20 11:05 WBC (4.4-10.8) 10^3/uL RBC (4.36-5.78) 10^6/uL Hgb (13.5-17.5) g/dL Hct (40.0-50.0) % MCV (80-95) fL MCH (27.0-33.0) pg MCHC (32.0-36.0) % RDW (11.8-14.1) % Plt Count (130-400) 10^3/uL MPV (8.0-11.0) fL Immature Gran % % Neutrophils % % Lymphocytes % % Monocytes % % Eosinophils % % Basophils % % Nucleated RBC % (0.0-0.3) % Absolute Neutrophils (1.2-6.7) 10^3/uL Absolute Lymphocytes (1.2-3.4) 10^3/uL Absolute Monocytes (0.1-0.8) 10^3/uL Absolute Eosinophils (0.0-0.7) 10^3/uL Absolute Basophils (0.0-0.2) 10^3/uL PT (9.1-11.1) sec INR (0.9-1.1) APTT (20.6-30.2) sec Sodium (136-145) mmol/L Potassium (3.5-5.1) mmol/L Chloride (98-107) mmol/L Carbon Dioxide (21.0-32.0) mmol/L Anion Gap (3-11) mmol/L BUN (7-18) mg/dL Creatinine (0.70-1.30) mg/dL Est GFR (CKD-EPI 2020) (mL/min/1.73m2) Glucose (74-106) mg/dL Calcium (8.5-10.1) mg/dL Creatine Kinase 88 (39-308) U/L Urine Color Red (Yellow) Urine Clarity Sl Cloudy (Clear) Urine pH 5.0 (5-8) Ur Specific [place] 1.015 (1.005-1.025) Urine Protein >=300 H (Neg-Trace) mg/dL Urine Ketones Negative (Negative) mg/dL Urine Blood Large H (Negative) Urine Nitrite Negative (Negative) Urine Bilirubin Negative (Negative) Urine Urobilinogen 0.2 (Up to 0.2) mg/dL Ur Leukocyte Esterase Negative (Negative) Urine RBC >50 H (0-2) HPF Urine WBC 5-10 (0-5) HPF Ur Epithelial Cells Rare (Negative) HPF Urine Crystals Negative (Negative) HPF Urine Bacteria Moderate (Negative) HPF Urine Casts Negative (Negative) LPF Urine Mucus Moderate (Negative) Urine Other Negative (Negative) Ur Culture Indicated? Yes Ur Random Creatinine 42.24 mg/dL U Random Total Protein 193.2 mg/dL U [place] Prot/Creat Ratio 4.57 Urine Glucose Negative (Negative) mg/dL ABO/Rh Antibody Screen 06/27/24 15:20 Urine Culture - Pending Urine - Reflex from Ua Intake and Output - 24 Hour Total 06/27/24 14:15 thru 06/27/24 19:22 Intake Total 1000 Output Total 320 Balance 680 Weight 87.543 kg Intake: IV 1000 Output: Urine 320 Other: # Voids 1 Falls Risk Assessment History of Falls No History 06/27/24 14:26 Contributing Factors No Factors 06/27/24 14:26 Ambulatory Aids Independent 06/27/24 14:26 Tubes/Lines None 06/27/24 14:26 Gait Evaluation No gait disturbance 06/27/24 14:26 Cognition No cognitive impairment 06/27/24 14:26 Fall Total Score 0 06/27/24 14:26 Level of Risk Standard/Low Risk 06/27/24 14:26 Problems (Last Reviewed 06/27/24 @ 19:56 by Raymundo Martin) Kidney failure (Chronic) Blood loss anemia (Acute) DVT prophylaxis (Acute) Liver mass, right lobe (Acute) Glomerulonephritis (Acute) Abnormal CT lung screening (Acute) COPD (chronic obstructive pulmonary disease) (Chronic) Notes 06/27/24 16:48 Nursing Notes by Roro Garcia Called DI and asked for Images to be Pushed to [facility] @ [id number] Initialized on 06/27/24 16:48 - END OF NOTE v v v v v v v v v Sending and/or Receiving Nurses: Please use comment section below to note any information pertinent to the patient hand-off not included above. Information / Comments: Humura x 1 year, progressive sob x 1 month, nodular infiltrate left lung, LE edema, painless hematuria (had been checked out prior), came to ER because increased SOB. Decreased U/O, send out labs sent, imagining of kidneys-no stone, 06/[address] Coffey, questioning good pasture syndrome #18 LAC Report received from: Angi Bear Rn @ 2024
[2024-06-28 07:29] LABS: HCT 23.7 % (40.0-50.0); HGB 7.2 g/dL (13.5-17.5); MCH 27.8 pg (27.0-33.0); MCHC 30.4 % (32.0-36.0); MCV 92 fL (80-95); Platelet Count 105 10^3/uL (130-400); RBC 2.59 10^6/uL (4.36-5.78); RDW 16.8 % (11.8-14.1); RDW-SD 55.8 fL; WBC 6.33 10^3/uL (4.4-10.8)
[2024-06-28 07:37] LABS: ESR 48 mm/hr (0-20)
[2024-06-28 07:40] VITALS: BP 139/72; PULSE 87; RESP 16; TEMP 36.4; O2SAT 96
[2024-06-28 07:48] LABS: Anion Gap 13.2 mmol/L (3-11); BUN 50 mg/dL (7-18); CO2 20.8 mmol/L (21.0-32.0); Calcium 8.5 mg/dL (8.5-10.1); Chloride 108 mmol/L (98-107); Estimated GFR 16.72 (mL/min/1.73m2); Glucose 101 mg/dL (74-106); Potassium 3.8 mmol/L (3.5-5.1); Sodium 142 mmol/L (136-145)
[2024-06-28 07:49] LABS: Iron 35 ug/dL (65-175); Total Iron Binding Capacity 345 ug/dL (250-450); Transferrin Sat 10 % (20-55)
[2024-06-28 07:53] LABS: CREATININE 3.9 mg/dL (0.70-1.30)
[2024-06-28 08:15] LABS: Vitamin B12 522 pg/mL (193-986)
--- NOTE | 2024-06-28 11:41 | PHA.REVIEW2 ---
Pharmacy Admission Review Admission Clinical Review Admission Pharmacy Review: Blood loss anemia (Acute) DVT prophylaxis (Acute) Liver mass, right lobe (Acute) Glomerulonephritis (Acute) Abnormal CT lung screening (Acute) Tobacco use disorder (Acute) Penicillins Allergy (Intermediate, Verified 06/27/24 14:27) Other (See Comment) Resuscitation Status Full Code Height 5 ft 8 in Weight 85.638 kg Comments Comments/Follow Ups: Accepted to [facility] for transfer, waiting on bed Pharmacy Admission Review Renal Dosing Renal Dosing: BUN 50 mg/dL (7-18) H 06/28/24 06:30 Creatinine 3.9 mg/dL (0.70-1.30) H* 06/28/24 06:30 Medications needing adjustments: Reviewed (CrCl 21.18 mL/min, SCr increased from 3.5) List of meds needing interventions: Current medications are okay Anticoagulation Anticoagulation: Hgb 7.2 g/dL (13.5-17.5) L 06/28/24 06:30 Hct 23.7 % (40.0-50.0) L 06/28/24 06:30 Plt Count 105 10^3/uL (130-400) L 06/28/24 06:30 INR 1.1 (0.9-1.1) 06/27/24 15:46 Creatinine 3.9 mg/dL (0.70-1.30) H* 06/28/24 06:30 DVT Prophylaxis: Reviewed (SCDs/TEDs) Relevant Labs Relevant Labs: ESR 48 mm/hr (0-20) H 06/28/24 06:30 Sodium 142 mmol/L (136-145) 06/28/24 06:30 Potassium 3.8 mmol/L (3.5-5.1) 06/28/24 06:30 Chloride 108 mmol/L (98-107) H 06/28/24 06:30 Electrolytes, C-Reactive P, ESR: Reviewed Cardiac Review BP, HR, EF%: Reviewed (HR and BP WNL) QTc Review QTc: Reviewed (449 from 03/27/24 - most recent EKG on file) IV to PO Switch IV Medications: Reviewed Home Meds Home Med List reviewed: Intervened Relevent Home Meds Not ordered & why?: Geoff (every 14 days) Changed Beztri to patients own order and called nurse to see if this could be brought in. Per nurse patients plans on bringing in this afternoon. Current Meds Current Medication Order Review: Reviewed Comments: Urine culture = no growth @24hrs Comments Comments/Follow Ups: Accepted to [facility] for transfer, waiting on bed
--- NOTE | 2024-06-28 15:56 | PGE_ITS ---
Date of Service Date of service: 06/28/24 Time of Service: 15:56 Assessment and Plan Assessment and plan (1) Glomerulonephritis: Status: Acute Assessment and plan: -patient with subacute progressive renal failure with hematuria and proteinuria consistent with a clinical diagnosis of glomerulonephritis. -s/p cystoscopy, noncontrast CT, renal ultrasound, and retrograde pyelogram that did show stones but no other anatomical causes for bleeding. -patient also has had progressing of his dyspnea and a recent CT chest that showed nodular infiltrate increasing suspicion for Goodpastures -He has been accepted by neprology at [facility] pending bed. -Renal diet, to clears at midnight anticipating sedation for renal biospy, accepted by Dr. Becker on medicine service when bed available. (2) Liver mass, right lobe: Status: Acute Assessment and plan: -incidental, address on follow up. -MRI with contrast would be most useful (3) COPD (chronic obstructive pulmonary disease): Status: Chronic Assessment and plan: -Pulmonology note today reviewed, changed from LABA/LAMA to ICS/LABA/LAMA. will continue (4) Abnormal CT lung screening: Status: Acute Assessment and plan: As above he has had progression in respiratory symptoms in recent months with CT showing (5) Kidney failure: Status: Chronic Assessment and plan: subacute as above, appears intrinsic. (6) Blood loss anemia: Status: Acute Assessment and plan: -Progression of anemia over weeks to months. -Likely contributing to dypnea on exertion. (7) Tobacco use disorder: Status: Acute Assessment and plan: -continues low level smoking. -Declines NRT for now. -Discussed cessation with admitting provider (8) Thrombocytopenia: Status: Chronic Assessment and plan: -Noted since 02/12. -No clear cirrhosis on non-contrast CT but spleen borderline enlarged and FIB-4 is concerning. -This could be related to inflammatory condition but should assess for cirrhosis non-acutely as well. -HIV and HCV screen will be done at [facility], send outs here. Get b12 with AM labs. (9) DVT prophylaxis: Status: Acute Assessment and plan: with ongoing bleeding and anemia, pending biopsy, use TEDs/SCDs Subjective Subjective Interval history since last seen: Patient states that he is doing well today and he understands that he is waiting for a bed to be available at [facility]. Exam Narrative Exam Narrative: well appearing older gentleman laying in bed in no acute distress, AOx4, heart RRR, lungs CTAB, abdomen soft, non-tender, non-distended Objective Last Vital Signs Temp 97.5 F L 06/28/24 07:40 Pulse 87 06/28/24 07:40 Resp 16 06/28/24 07:40 BP 139/72 06/28/24 07:40 Pulse Ox 96 06/28/24 07:40 Laboratory Results - last 24 hr 06/27/24 06/27/24 06/27/24 11:05 15:20 15:46 WBC RBC Hgb Hct MCV MCH MCHC RDW Plt Count MPV Immature Gran % Neutrophils % Lymphocytes % Monocytes % Eosinophils % Basophils % Nucleated RBC % Absolute Neutrophils Absolute Lymphocytes Absolute Monocytes Absolute Eosinophils Absolute Basophils ESR PT 10.8 INR 1.1 APTT 24.1 Sodium Potassium Chloride Carbon Dioxide Anion Gap BUN Creatinine Est GFR (CKD-EPI 2020) Glucose Calcium Iron TIBC Transferrin % Sat Creatine Kinase 88 Vitamin B12 Urine RBC >50 H Urine WBC 5-10 Ur Epithelial Cells Rare Urine Crystals Negative Urine Bacteria Moderate Urine Casts Negative Urine Mucus Moderate Urine Other Negative Ur Culture Indicated? Yes Ur Random Creatinine 42.24 U Random Total Protein 193.2 U [place] Prot/Creat Ratio 4.57 ABO/Rh Antibody Screen 06/27/24 06/27/24 06/28/24 16:18 18:06 06:30 WBC 5.95 6.33 RBC 2.55 L 2.59 L Hgb 7.2 L 7.2 L Hct 23.3 L 23.7 L MCV 91 92 MCH 28.2 27.8 MCHC 30.9 L 30.4 L RDW 16.6 H 16.8 H Plt Count 126 L 105 L MPV 8.8 9.0 Immature Gran % 0.2 Neutrophils % 65.7 Lymphocytes % 15.1 Monocytes % 14.5 Eosinophils % 4.0 Basophils % 0.5 Nucleated RBC % 0.0 Absolute Neutrophils 3.91 Absolute Lymphocytes 0.90 L Absolute Monocytes 0.86 H Absolute Eosinophils 0.24 Absolute Basophils 0.03 ESR 48 H PT INR APTT Sodium 139 142 Potassium 3.7 3.8 Chloride 107 108 H Carbon Dioxide 19.2 L 20.8 L Anion Gap 12.8 H 13.2 H BUN 50 H 50 H Creatinine 3.5 H 3.9 H* Est GFR (CKD-EPI 2020) 19.04 16.72 Glucose 93 101 Calcium 7.9 L 8.5 Iron 35 L TIBC 345 Transferrin % Sat 10 L Creatine Kinase Vitamin B12 522 Urine RBC Urine WBC Ur Epithelial Cells Urine Crystals Urine Bacteria Urine Casts Urine Mucus Urine Other Ur Culture Indicated? Ur Random Creatinine U Random Total Protein U [place] Prot/Creat Ratio ABO/Rh A Positive Antibody Screen NEGATIVE PAWSS Have you Been Recently Intoxicated or Drunk Within the Last 30 days?: Yes Have you Ever Experienced Previous Episodes of Alcohol Withdrawal?: No Have you ever Experienced Withdrawal Seizures?: No Have you ever Experienced Delirium Tremens(DT)s?: No Have you ever undergone Alcohol Rehabilitation Treatment (i.e, inpt ot outpatient treatment programs)?: No Have you ever Experienced Blackouts?: No Have you ever Combined Alcohol with other Downers within the last 90 days?: No Have you ever Combined Alcohol with any other Substance of Abuse during the last 90 days?: No Positive Blood Alcohol level on Presentation? [PCS.BAL]: No Evidence of Increased Autonomic Activity (i.e. HR>120, tremor, sweating, agitation, nausea)?: No Result: 1 Time Spent with Patient Time Spent with Patient: >50 minutes Time was spent: preparing to see the patient(eg.review tests), obtaining and/or reviewing separately otained hiistory, ordering medications,tests, procedures, referring, communicating with other health healthcare administration intern, indepentently interpreting results, counseling the patient and care coordination
[2024-06-28 16:03] VITALS: BP 136/71; PULSE 88; RESP 20; TEMP 36.8; O2SAT 98
--- NOTE | 2024-06-28 16:11 | CHAPLAIN ---
Warren is here with renal failure. He's waiting for a bed at [facility] to open up. He was resting in bed when I visited this afternoon. Warren said he's not frustrated by the wait, but instead tries not to worry about things that are out of his control. His family was in to visit earlier. Warren said this will be his first time going to [facility] and that's been healthy until this issue arose and now he's been dealing with a lot of medical issues, but he continues to not worry. I explained my role and offered support.
--- NOTE | 2024-06-28 18:33 | INITIAL_ITS ---
Date of service: 06/28/24 Time of Service: 18:33 Care Management Initial Assmt Initial Assessment Reason for Hospitalization: renal failure, glomerulonephritis Functional Status/Living Situation Patient Presentation: Warren was sitting up on the edge of the bed when CM met with him. He was pleasant and engaged well in conversation. He stated that he lives in [place], alone, but that he has good family support. 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 Two of his sisters entered the room during the conversation and also engaged in conversation. Warren stated that per MD, his plan is to [place] [facility] Per report, he has been accepted, and is waiting for a bed. Warren stated that he has been in communication with his work. He is comfortable with the plan. CM will continue to follow. Town of Residence: [place] Resides with: Alone Significant Other/Family: Local Natural Supports: daughter, Lisa sisters, Manasa and Lay Employment Status: Employed Instrumental Activities of Daily Living (ADLs): Independent Medications Medication Management: No Issues/Barriers identified Physical Functioning/Mobility Assistive Device: none Advance Directives Advance Directives: Do you have an Advance Directive: N 12/17/15 12:08 AD On File at [facility]: N 12/17/15 12:08 Date Asked 06/27/24 06/27/24 11:55 AD Date Reviewed COLST On File at [facility] COLST Date Scanned Code Status Resuscitation Status Full Code Insurance Coverage/Financial Issues Insurance: / Care Team Visit Care Team Role Provider Type Dewey Kirkland MD MD [facility] STAFF PHYSICIAN Melvin De León NP Primary Care Provider NURSE PRACTITIONER PHOEBE Mendoza Emergency Provider PHYSICIANS NUCLEAR MEDICINE OFFICER Raymundo Martin Admit Provider [facility] STAFF PHYSICIAN Attending Provider Discharge Potential Discharge Needs: Other (transfer to tertiary care) Anticipated Barriers to Discharge: Bed availability Patient/Family Education Needs: Review discharge instructions, discuss Ask Me Three Transportation: EMS Plan: Anticipate Warren will transfer to [facility] [place]. He will transport via EMS for the acute transfer. He will follow up with his PCP and discharge plan of care. CM will continue to follow. Social Determinants of Health Screening Social Determinants of Health last assessed: 06/28/24 Will the Patient Participate in the Screening?: Yes Do you worry about having a steady place to live?: no Problems where you live: no known problems In the past 12 months, have you had to go without electric, gas, oil or water in your home?: no Have you or anyone in your house had to go without enough food to eat?: no Has lack of transportation kept you from medical appointments or from doing things needed for daily living?: no Has anyone in your life made you feel unsafe or unsupported?: no How hard is it for you to pay for the very basics like food, housing, medical care, and heating? Would you say it is:: Not hard at all Do you want help finding or keeping work or a job?: I do not need or want help If for any reason you need help with day-to-day activities such as bathing, preparing meals, shopping, managing finances, etc., do you get the help you need?: I don?t need any help How often do you feel lonely or isolated from those around you?: Rarely Do you speak a language other than Lithuanian at home?: No Does the patient want assistance with any of the above?: No Health Related Social Needs Health related social needs: food insecurity (Z59.41) and feeling lonely/isolated (Z60.8) PFSH All Active Problems (Updated 06/27/24 @ 22:08 by Raymundo Martin) Thrombocytopenia (Chronic) Kidney failure (Chronic) Blood loss anemia (Acute) DVT prophylaxis (Acute) Liver mass, right lobe (Acute) Glomerulonephritis (Acute) Lower extremity edema (Acute) R>L Dyspnea on exertion (Acute) Former smoker (Acute) Abnormal CT lung screening (Acute) Gross hematuria (Acute) Family history of prostate cancer in father (Acute) Snoring (Acute) COPD (chronic obstructive pulmonary disease) (Chronic) Edema (Acute) Right leg swelling (Acute) Erectile dysfunction (Acute) Nail dystrophy (Acute) Pincer nail deformity (Acute) Annual physical exam (Acute) Allergic rhinitis (Acute) Tobacco use disorder (Acute) Psoriasis (Chronic 10/21/15) Medical History Dyspnea Psoriasis Family history of colon cancer Impacted cerumen of right ear (10/14/15) Impacted cerumen of left ear Nicotine dependence Psoriasis Colon cancer screening Screening cholesterol level Family History Mother Diabetes Father Neoplasm PROSTATE Sister Neoplasm BREAST Daughter No problems noted. Social History (Updated 06/27/24 @ 21:57 by Raymundo Martin) Smoking/Tobacco Use Status: Current-Occasional Tobacco Type: cigarettes Tobacco: How many years used: 40 Quit status: has quit before Second Hand Exposure: Yes Counseling given: provider counseling Smoking risk assessment performed?: Yes Alcohol Intake: current Alcohol Intake frequency: 0-2 drinks per day Alcohol type: hard liquor Details: 6 or more drinks monthly Drug use: Never Substance use type: does not use Counseling provided: none Adopted: No Caregiver/Support person: No Household members: none Housing: house Number of Children: 1 number of grandchildren: 0 Communication Needs: None Education Level: high school Details: 12th Do you need help understanding health information?: Rarely 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 Pets and animals: No Sexually active: Yes Do you think of yourself as: straight/heterosexual Current gender identity: male What is your relationship status?: How often do you talk on the phone with friends or family?: three or more times per week How often do you get together with friends or relatives?: once per week How often do you attend pentecostal or episcopal services?: 1-3 times per year Do you belong to any clubs or organized social groups?: no Panel score (0-1 are the most socially isolated patients): 1 What type of physical activity do you participate in: none Frequency: does not exercise Jeanna/Yarsani: None Special jeanna needs: No Seatbelt use: always Helmet use: No Drive intox or ride w/intox local owner operator truck driver: No Firearms in home: Yes Firearms unloaded and locked: Yes Do you feel safe at home: Yes Victim of physical abuse: No Victim of emotional abuse: No Victim of sexual abuse: No Would you like helpful sources: No 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 Lives in [place]
[2024-06-28 19:30] VITALS: BP 131/71; PULSE 90; RESP 22; TEMP 37; O2SAT 98
--- NOTE | 2024-06-28 21:43 | W.PM.DS.N ---
Date of service: 06/28/24 Time of Service: 21:43 DS: Diagnosis Discharge Diagnosis (1) Glomerulonephritis: Start date: 06/27/24 Status: Acute Asessment and Plan: 63-year-old patient who had abnormal lab with his PCP just prior to admission with progressive subacute renal failure. This is most likely glomerulonephritis with CT scan of the chest showed some nodular infiltrates suggesting Goodpasture syndrome is [place] [facility] [place] Ahmadi medical care with nephrology consultation. He was stable at the time of discharge. (2) Liver mass, right lobe: Status: Acute Asessment and Plan: Follow[place]up [place] [facility] [place]. (3) COPD (chronic obstructive pulmonary disease): Status: Chronic Asessment and Plan: Stable. (4) Abnormal CT lung screening: Status: Acute Asessment and Plan: As above. (5) Kidney failure: Status: Chronic Asessment and Plan: As above. (6) Blood loss anemia: Status: Acute Asessment and Plan: Monitor with this possibly being associated with renal disease. (7) Tobacco use disorder: Status: Acute Asessment and Plan: Long-term. Have cessation. (8) Thrombocytopenia: Status: Chronic Asessment and Plan: Follow-up with evaluation of liver and spleen abnormalities with labs pending. He has been progressive since January 2024. (9) DVT prophylaxis: Status: Acute Asessment and Plan: Continue. Discharge Plan Disposition Patient Disposition: Transfer-Acute Inpatient Care Specific Acute Inpt Facility: [facility] Condition: Stable Discharge Details Reason For Visit: Renal failure, Glomerulonephritis Admit Date/Time: 06/27/24 18:41 Admit Provider: Raymundo Martin Attending Provider: Raymundo Martin Primary Care Provider: Melvin Weldon Hospital Course Hospital Course: This is a 63-year-old open was admitted because of progressive abnormal labs with imaging and evaluation suggesting the patient syndrome with glomerulonephritis. Needs further evaluation of his anemia and thrombocytopenia. He will be transferred [place] [facility] [place] with nephrology consultation and hematology/hepatology as needed. Physical exam was stable at discharge the patient slightly sweaty lungs clear and heart MRI regular rhythm with abdomen soft and nontender. No acute labs in transfer, see H&P and progress notes. Patient is a full code. Home Meds and New Rx's Prescriptions: No Action Stiolto Respimat 2.5-2.5 mcg/actuation mist 2 puff inhalation DAILY Qty: 4 12RF albuterol sulfate 90 mcg/actuation HFA aerosol inhaler 2 inh inhalation Q6H PRN (Reason: shortness of breath or wheezing) Qty: 18 12RF Rayrayi Aerosphere 160-9-4.8 mcg/actuation HFA aerosol inhaler 2 inh inhalation BID Qty: 10.7 6RF Humira(CF) Pen 40 mg/0.4 mL pen injector kit 40 mg SUBCUT Q14D Discharge Instructions Activity:: Activity as Tolerated Equipment/Supplies:: No Equipment Needed Diet:: As Tolerated Discharge Orders Discharge Orders: Discharge Order (Routine); Ordered 06/28/24 Ordered By: Warren Saeed DS: Summary Time Spent with Patient providing and/or coordinating discharge services: Greater than 30 minutes Status at Discharge Functional status at discharge: independent ambulation Overall status at discharge: patient is not back to baseline Mental Status: mental status grossly normal Speech and Movement: speech and movement normal Mood: congruent mood Affect: normal affect Quality:SDOH Health Related Social Needs: Health related social needs food insecurity (Z59.41), feeling lonely/isolated (Z60.8) Health related social needs details N/A Exam Narrative Exam Narrative: No change from physical exam on progress note 06/28/2024. Patient does appear pale and slightly sweaty but comfortable. He is able to ambulate safely. Psych Mental Status: mental status grossly normal Speech and Movement: speech and movement normal Mood: congruent mood Affect: normal affect DS: Data Vitals/I&O Vitals and I&O: Vital Signs Temperature 37.0 C 06/28/24 19:30 Temperature Source Tympanic 06/28/24 19:30 Pulse 90 06/28/24 19:30 Pulse Rhythm Regular 06/27/24 20:56 Pulse 91 H 06/27/24 18:45 Respiratory Rate 22 06/28/24 19:30 Respiratory Effort Normal, Non-Labored 06/27/24 20:56 Respiratory Depth Normal 06/27/24 20:56 Respiratory Pattern Normal 06/27/24 20:56 Blood Pressure 131/71 06/28/24 19:30 Blood Pressure Mean 89 06/27/24 18:45 Blood Pressure Position Sitting 06/27/24 14:19 Pulse Oximetry 98 06/28/24 19:30 Oxygen Delivery Method Room Air 06/28/24 19:30 Oxygen Flow Rate 0 06/28/24 19:30 Pain Level 0 06/28/24 19:30 Intake & Output 06/27/24 06/28/24 06/28/24 23:59 11:59 23:59 Intake Total 1200 / 1200 580 / 580 Output Total 320 / 320 1700 / 2625 925 / 2625 Balance 880 / 880 -1700 / -2045 -345 / -2045 Weight 85.638 kg Intake: IV 1000 / 1000 Oral 200 / 200 580 / 580 Output: Urine 320 / 320 1700 / 2625 925 / 2625 Other: Urine Color Brown Brown Dark Red Urine Appearance Hematuria Hematuria Clear Comment pt states he urinated after being admitted onto the floor # Voids 1 Data Completed and Pending Labs on day of discharge: Labs from last 24 hours 06/28/24 06:30 WBC 6.33 RBC 2.59 L Hgb 7.2 L Hct 23.7 L MCV 92 MCH 27.8 MCHC 30.4 L RDW 16.8 H Plt Count 105 L MPV 9.0 ESR 48 H Sodium 142 Potassium 3.8 Chloride 108 H Carbon Dioxide 20.8 L Anion Gap 13.2 H BUN 50 H Creatinine 3.9 H* Est GFR (CKD-EPI 2020) 16.72 Glucose 101 Calcium 8.5 Iron 35 L TIBC 345 Transferrin % Sat 10 L Vitamin B12 522 Preliminary micro results at discharge 06/27/24 15:20 Urine Culture - Preliminary Urine - Reflex from [facility] All Active Problems (Updated 06/27/24 @ 22:08 by Raymundo Martin) Thrombocytopenia (Chronic) Kidney failure (Chronic) Blood loss anemia (Acute) DVT prophylaxis (Acute) Liver mass, right lobe (Acute) Glomerulonephritis (Acute) Lower extremity edema (Acute) R>L Dyspnea on exertion (Acute) Former smoker (Acute) Abnormal CT lung screening (Acute) Gross hematuria (Acute) Family history of prostate cancer in father (Acute) Snoring (Acute) COPD (chronic obstructive pulmonary disease) (Chronic) Edema (Acute) Right leg swelling (Acute) Erectile dysfunction (Acute) Nail dystrophy (Acute) Pincer nail deformity (Acute) Annual physical exam (Acute) Allergic rhinitis (Acute) Tobacco use disorder (Acute) Psoriasis (Chronic 10/21/15) Medical History Dyspnea Psoriasis Family history of colon cancer Impacted cerumen of right ear (10/14/15) Impacted cerumen of left ear Nicotine dependence Psoriasis Colon cancer screening Screening cholesterol level Family History Mother Diabetes Father Neoplasm PROSTATE Sister Neoplasm BREAST Daughter No problems noted. Social History (Updated 06/27/24 @ 21:57 by Raymundo Martin) Smoking/Tobacco Use Status: Current-Occasional Tobacco Type: cigarettes Tobacco: How many years used: 40 Quit status: has quit before Second Hand Exposure: Yes Counseling given: provider counseling Smoking risk assessment performed?: Yes Alcohol Intake: current Alcohol Intake frequency: 0-2 drinks per day Alcohol type: hard liquor Details: 6 or more drinks monthly Drug use: Never Substance use type: does not use Counseling provided: none Adopted: No Caregiver/Support person: No Household members: none Housing: house Number of Children: 1 number of grandchildren: 0 Communication Needs: None Education Level: high school Details: 12th Do you need help understanding health information?: Rarely 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 Pets and animals: No Sexually active: Yes Do you think of yourself as: straight/heterosexual Current gender identity: male What is your relationship status?: How often do you talk on the phone with friends or family?: three or more times per week How often do you get together with friends or relatives?: once per week How often do you attend shinto or methodist services?: 1-3 times per year Do you belong to any clubs or organized social groups?: no Panel score (0-1 are the most socially isolated patients): 1 What type of physical activity do you participate in: none Frequency: does not exercise Jeanna/Roman Catholic: None Special jeanna needs: No Seatbelt use: always Helmet use: No Drive intox or ride w/intox personal driver: No Firearms in home: Yes Firearms unloaded and locked: Yes Do you feel safe at home: Yes Victim of physical abuse: No Victim of emotional abuse: No Victim of sexual abuse: No Would you like helpful sources: No 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 Lives in [place] Time Spent with Patient Time Spent with Patient: <45 minutes Time was spent: preparing to see the patient(eg.review tests), [facility] and[facility], indepentently interpreting results, counseling the patient and care coordination
[2024-06-28 23:43] VITALS: BP 123/60; PULSE 85; RESP 19; TEMP 37; O2SAT 95
== END 2024-06-28 23:45 | disposition short-term general hospital (02) | DRG 700 ==
LOC: ER 18:17 → MS 20:42
PROVIDERS: Nurse Practitioner Family; Admitting Provider Family Medicine; Emergency Provider Physician Assistant; PCP Nurse Practitioner Family; Responsible Provider Family Medicine; Visit Provider Family Medicine
DX: N00.9 Acute nephritic syndrome with unspecified morphologic changes (principal); R16.0 Hepatomegaly, not elsewhere classified; J44.9 Chronic obstructive pulmonary disease, unspecified; R50.9 Fever, unspecified; N17.9 Acute kidney failure, unspecified; D50.0 Iron deficiency anemia secondary to blood loss (chronic); D69.6 Thrombocytopenia, unspecified; R31.0 Gross hematuria; L40.9 Psoriasis, unspecified; Z79.620 Long term (current) use of immunosuppressive biologic; N18.9 Chronic kidney disease, unspecified; R60.0 Localized edema; F17.210 Nicotine dependence, cigarettes, uncomplicated; Z80.0 Family history of malignant neoplasm of digestive organs; Z80.42 Family history of malignant neoplasm of prostate
CPT/HCPCS: 00123; 36415; 76770; 80048; 80053; 82550; 85027; 85652; 86850; 86900; 86901; 94640; 96360; 96361; 99285; 81003; 81015; 82565; 82607; 83540; 83550; 84156; 85025; 85610; 85730; 87086; 99222; 99239

== ENCOUNTER 2024-07-13 13:29 | Outpatient (CLI) | payer BC, SELFPAY ==
[2024-07-13 14:38] LABS: BUN 64 mg/dL (7-18); CREATININE 2.5 mg/dL (0.70-1.30); Chloride 104 mmol/L (98-107); Estimated GFR 28.52 (mL/min/1.73m2); Glucose 133 mg/dL (74-106); Magnesium 1.8 mg/dL (1.8-2.4); PHOSPHORUS 3.8 mg/dL (2.6-4.7); Potassium 4.2 mmol/L (3.5-5.1); Sodium 138 mmol/L (136-145)
== END 2024-07-13 13:30 | disposition home or self-care (01) ==
LOC: LBO 13:30
PROVIDERS: PCP Nurse Practitioner Family; Visit Provider Nurse Practitioner Family
DX: N19 Unspecified kidney failure (principal)
CPT/HCPCS: 36415; 80048; 83735; 84100

== ENCOUNTER 2024-07-21 16:30 | Outpatient (CLI) | payer BC, SELFPAY ==
[2024-07-21 16:29] LABS: HCT 25.4 % (40.0-50.0); HGB 7.8 g/dL (13.5-17.5); MCH 29.4 pg (27.0-33.0); MCHC 30.7 % (32.0-36.0); MCV 96 fL (80-95); MPV 9.2 fL (8.0-11.0); Platelet Count 103 10^3/uL (130-400); RBC 2.65 10^6/uL (4.36-5.78); RDW 17.4 % (11.8-14.1); RDW-SD 60.9 fL; WBC 10.83 10^3/uL (4.4-10.8)
[2024-07-21 16:42] LABS: ALT 39 U/L (16-63); AST 30 U/L (15-37); Albumin 2.9 g/dL (3.4-5.0); Alkaline Phosphatase 91 U/L (46-116); Anion Gap 8.5 mmol/L (3-11); BUN 71 mg/dL (7-18); Bilirubin, Total 0.7 mg/dL (0.2-1.0); CO2 24.5 mmol/L (21.0-32.0); CREATININE 2.5 mg/dL (0.70-1.30); Chloride 105 mmol/L (98-107); Estimated GFR 28.52 (mL/min/1.73m2); Glucose 133 mg/dL (74-106); Potassium 4.4 mmol/L (3.5-5.1); Sodium 138 mmol/L (136-145); Total Protein 6.5 g/dL (6.4-8.2)
== END 2024-07-21 16:31 | disposition home or self-care (01) ==
LOC: LBO 16:30
PROVIDERS: PCP Nurse Practitioner Family; Visit Provider Nurse Practitioner Family
DX: D69.6 Thrombocytopenia, unspecified (principal)
CPT/HCPCS: 36415; 80053; 85027

== ENCOUNTER 2024-07-28 00:38 | Outpatient (CLI) | payer BC, SELFPAY ==
--- NOTE | 2024-07-28 07:04 | DI.MRI_ITS ---
Exam(s) MR ABDOMEN WO EXAM: MR ABDOMEN WO CLINICAL HISTORY: f/u CT,rt lobe liver mass,r16.0 TECHNIQUE: Multiplanar multisequence MRI of the Abdomen was performed. MRCP sequences also performed. No IV gadolinium was administered due to poor renal function. COMPARISON: CT CT ABDOMEN PELVIS WO from 05/29/2024 US US RENAL from 06/27/2024 FINDINGS: Exam is limited by motion and lack of post-contrast imaging. Lung bases: Unremarkable. Liver: 2.5 centimeter circumscribed lesion seen in the right lobe of the liver abutting the capsule a djacent to the right kidney corresponding to the lesion seen on ultrasound. It is mildly high signal on T2 weighted images and isointense on T1 weighted images. No additional liver lesions. Gallbladder: Unremarkable. Bile Ducts: Unremarkable. Pancreas: Unremarkable. Adrenals: Unremarkable. Kidneys: Small left renal cyst. Spleen: Unremarkable. Aorta: Unremarkable. Soft Tissues: Unremarkable. Bone: There are a few small scattered lesions in the spine which are high in both T1 and T2 weighted images which could represent hemangiomas. No corresponding high signal on STIR images. Lymph Nodes: Unremarkable. Mesentery: No ascites. No focal fluid collection. Bowel: No abnormal dilatation or wall thickening. IMPRESSION: 2.5 centimeter lesion in the right lobe of the liver is not fully characterized without IV contrast. It does not have the typical appearance of a benign hemangioma on ultrasound or MRI. Biopsy should be considered. Normal MRCP. DATA REPOSITORY:
== END 2024-07-28 00:58 ==
PROVIDERS: PCP Nurse Practitioner Family; Visit Provider Nurse Practitioner Family
DX: R16.0 Hepatomegaly, not elsewhere classified (principal)
CPT/HCPCS: 74181

== ENCOUNTER 2024-08-01 11:12 | Outpatient (CLI) | payer BC, SELFPAY ==
[2024-08-01] MEDS: Gadoterate meglumine 20 ML VIAL IVP (15:18)
[2024-08-01] MEDS: Normal Saline - Diluent 50 ML VIAL IJ (15:19)
--- NOTE | 2024-08-01 15:45 | DI.MRI_ITS ---
Exam(s) MR ABDOMEN WO/W EXAM: MR ABDOMEN WO/W CLINICAL HISTORY: right lobe liver mass, follow up MRI w/o R16.0 HEPATOMEGALY TECHNIQUE: Multiplanar multisequence MRI was performed with both pre and post contrast infused seque nces. Contrast injected sequences were performed following IV injection of 18 cc of Dotarem. COMPARISON: MR MR ABDOMEN WO from 07/28/2024 FINDINGS: VISUALIZED LUNG BASES: No pleural effusions evident. There is no ascites evident. LIVER: With respect to the previously described 2.5 cm lesion in the right hepatic lobe this a mildly T2 hyperintense lesion exhibits small internal foci of greater T2 hyperintensity. The lesion does no t exhibit signal dropout to suggest internal lipid content. On today's postcontrast sequences there i s some early phase internal enhancement with suspected washout in the anteromedial persona of the les ion and peripheral enhancing pseudo capsule appearance on the 15 minutes delay images. BILIARY: There is no obvious gallbladder pathology. The CBD is not dilated. PANCREAS: There is no evidence of pancreatic mass nor dilatation of the pancreatic duct. SPLEEN: Spleen is not enlarged and there are no significant intrasplenic lesions.Splenic and portal v eins are patent ADRENALS: There are no significant adrenal masses. KIDNEYS: No solid renal masses. No hydronephrosis.Nonenhancing small benign cyst lateral cortex left kidney. ABDOMINAL AORTA: Not enlarged and there is no significant para-aortic adenopathy. ANTERIOR ABDOMINAL WALL/GI: There is no evidence of significant anterior abdominal wall hernia in the field of view of this study.Is no evidence of obvious bowel obstruction. OSSEOUS: There are no lytic osseous lesions in the field of view of this study. IMPRESSION: 1. The previously described 2.5 cm lesion in the right hepatic lobe does not exhibit signal character istics nor enhancement pattern of a benign cyst or cavernous hemangioma nor features of benign focal nodular hyperplasia. It exhibits some internal enhancement and other features which are somewhat conc erning for hepatocellular carcinoma. Biopsy is recommended. DATA REPOSITORY:
--- NOTE | 2024-08-01 19:06 | DI.VRAD_ITS ---
PROCEDURE INFORMATION: Exam: MR Abdomen Without and With Contrast Exam date and time: 08/01/2024 3:10 PM Age: 64 years old Clinical indication: Abnormal findings; Abnormal radiologic finding of the abdomen; Radiologic exam and body structure: MR abdomen w/o; RT lobe liver mass; MR w/ contrast requested to further evaluate liver mass. TECHNIQUE: Imaging protocol: Magnetic resonance imaging of the abdomen without and with contrast. COMPARISON: MR ABDOMEN WO 07/28/2024 2:00 PM. No comparison reports are provided. FINDINGS: Heart: Heart size normal. Esophagus: Visualized distal esophagus is unremarkable. Liver: Question mild liver contour irregularity suspicious for cirrhosis. 2.5 x 2.2 x 1.8 cm liver lesion in segment 6. T1 isointense. T2 hyperintense with mild heterogeneity and small internal foci of greater T2 hyperintensity. No out of phase signal dropout to suggest lipid content. Diffusion restriction is demonstrated on comparison recent noncontrast MRI. Postcontrast imaging shows early phase internal enhancing elements, with suspected washout in the anteromedial portion of the lesion, and peripheral enhancing pseudo capsule appearance on the 15 minute delay. These features are concerning for hepatocellular carcinoma. Recommend biopsy. Questionable 13 mm lesion in the high central liver dome segment 8, demonstrating T2 hypointensity, faint T1 hyperintensity, no gross diffusion restriction on recent comparison, and no significant arterial hyperenhancement or subsequent washout, most consistent with a small dysplastic nodule. Gallbladder and biliary ducts: Gallbladder characterization limited by motion. It is partially contracted. T1 isointense contrast in the gallbladder suggesting sludge, with small calcified gallstones identified on comparison CT. Question mild wall thickening for the degree of distension. Mild-moderate pericholecystic edema again noted, correlate clinically for cholecystitis. Nondilated bile ducts. No duct stones are identified. Pancreas: No acute pancreatic abnormalities. No pancreatic ductal dilatation. Spleen: Borderline splenomegaly measuring 13.5 cm. 4 mm T2 hyperintense nonenhancing lesion in the anterior spleen is most consistent with a small splenic cyst although too small to characterize well. Adrenal glands: Adrenal glands are normal. Kidneys: Small left renal cortical cyst which does not require further evaluation. Stomach and bowel: Visualized small bowel segments are unremarkable. Stomach is largely contracted but otherwise unremarkable. Visualized colonic segments are unremarkable. Intraperitoneal space: No peritoneal free fluid. Vasculature: Mildly dilated main portal vein suggesting portal hypertension. Atherosclerotic contour irregularity in the abdominal aorta without aneurysm. Portal system enhances appropriately without thrombosis Lymph nodes: No enlarged nodes. Bones/joints: No acute osseous abnormalities. Soft tissues: Minor dependent subcutaneous edema in the lumbar region. Other findings: Motion artifact produces moderate exam limitation. IMPRESSION: 1. A 2.5 cm liver lesion in segment 6 demonstrates imaging features concerning for possible hepatocellular carcinoma. Biopsy recommended. 2. A questionable 13 mm lesion in segment 8 demonstrates features most consistent with a small dysplastic nodule. 3. Pericholecystic edema with sludge/stones and suspected mild wall thickening, concerning for cholecystitis, similar to recent imaging. Nondilated bile ducts. 4. Mild liver contour irregularity suspicious for cirrhosis with borderline splenomegaly and mildly dilated main portal vein suggesting portal hypertension. Dictated and Authenticated by: Raymundo Suggs MD. Orderin Dena Charles MD
== END 2024-08-01 11:32 ==
PROVIDERS: PCP Nurse Practitioner Family; Visit Provider Nurse Practitioner Family
DX: R16.0 Hepatomegaly, not elsewhere classified (principal); R93.2 Abnormal findings on diagnostic imaging of liver and biliary tract
CPT/HCPCS: 74183

== ENCOUNTER 2024-08-09 10:02 | Outpatient (CLI) | payer BC, SELFPAY ==
[2024-08-09 10:01] LABS: Abs Immature Grans 0.02 10^3/uL (0.0-0.06); Absolute Basophil Count 0.03 10^3/uL (0.0-0.2); Absolute Eosinophil Count 0.17 10^3/uL (0.0-0.7); Absolute Lymphocyte Count 0.63 10^3/uL (1.2-3.4); Absolute Monocyte Count 0.87 10^3/uL (0.1-0.8); Absolute Neutrophil Count 4.03 10^3/uL (1.2-6.7); Basophils % 0.5 %; HCT 24.5 % (40.0-50.0); HGB 7.6 g/dL (13.5-17.5); Immature Grans % 0.3 %; MCH 29.2 pg (27.0-33.0); MCV 94 fL (80-95); MPV 8.3 fL (8.0-11.0); Monocytes % 15.1 %; Neutrophils % 70.1 %; Platelet Count 130 10^3/uL (130-400); RDW 15.2 % (11.8-14.1); RDW-SD 52.9 fL; WBC 5.75 10^3/uL (4.4-10.8)
[2024-08-09 10:32] LABS: COMMENT (LAB VIEW ONLY) 54.59 mg/dL; PROTEIN 49.9 mg/dL; Prot/Crea Ur Ratio 0.91
[2024-08-09 10:33] LABS: ALT 26 U/L (16-63); AST 29 U/L (15-37); Albumin 2.7 g/dL (3.4-5.0); Alkaline Phosphatase 104 U/L (46-116); Anion Gap 8.9 mmol/L (3-11); BUN 37 mg/dL (7-18); Bilirubin, Total 0.4 mg/dL (0.2-1.0); CO2 26.1 mmol/L (21.0-32.0); CREATININE 2.9 mg/dL (0.70-1.30); Calcium 9.2 mg/dL (8.5-10.1); Chloride 108 mmol/L (98-107); Estimated GFR 23.72 (mL/min/1.73m2); Glucose 106 mg/dL (74-106); Potassium 4.1 mmol/L (3.5-5.1); Sodium 143 mmol/L (136-145); Total Protein 6.7 g/dL (6.4-8.2)
== END 2024-08-09 10:03 | disposition home or self-care (01) ==
LOC: LBO 10:02
PROVIDERS: PCP Nurse Practitioner Family; Visit Provider Internal Medicine
DX: N17.9 Acute kidney failure, unspecified (principal); N02.B9 Other recurrent and persistent immunoglobulin A nephropathy; D64.9 Anemia, unspecified
CPT/HCPCS: 36415; 80053; 82565; 84156; 85025

== ENCOUNTER 2024-08-16 02:23 | Outpatient (CLI) | payer BC, SELFPAY ==
[2024-08-16 10:11] LABS: HCT 23.1 % (40.0-50.0); HGB 7.2 g/dL (13.5-17.5); MCH 28.9 pg (27.0-33.0); MCHC 31.2 % (32.0-36.0); MCV 93 fL (80-95); MPV 8.8 fL (8.0-11.0); Platelet Count 173 10^3/uL (130-400); RBC 2.49 10^6/uL (4.36-5.78); RDW 14.9 % (11.8-14.1); RDW-SD 50.5 fL; WBC 10.89 10^3/uL (4.4-10.8)
[2024-08-16 10:40] LABS: COMMENT (LAB VIEW ONLY) 69.94 mg/dL; PROTEIN 31.3 mg/dL; Prot/Crea Ur Ratio 0.44
[2024-08-16 10:44] LABS: ALT 35 U/L (16-63); AST 30 U/L (15-37); Albumin 2.9 g/dL (3.4-5.0); Alkaline Phosphatase 97 U/L (46-116); Anion Gap 11.9 mmol/L (3-11); BUN 63 mg/dL (7-18); Bilirubin, Total 0.2 mg/dL (0.2-1.0); CO2 21.1 mmol/L (21.0-32.0); CREATININE 2.5 mg/dL (0.70-1.30); Chloride 108 mmol/L (98-107); Estimated GFR 28.34 (mL/min/1.73m2); Glucose 109 mg/dL (74-106); Potassium 3.2 mmol/L (3.5-5.1); Sodium 141 mmol/L (136-145); Total Protein 6.9 g/dL (6.4-8.2)
== END 2024-08-16 02:24 | disposition home or self-care (01) ==
LOC: LBO 02:23
PROVIDERS: Nurse Practitioner Family; PCP Nurse Practitioner Family; Visit Provider Internal Medicine
DX: D69.6 Thrombocytopenia, unspecified (principal); N19 Unspecified kidney failure; N17.9 Acute kidney failure, unspecified; N02.B9 Other recurrent and persistent immunoglobulin A nephropathy
CPT/HCPCS: 36415; 80053; 85027; 82565; 84156

== ENCOUNTER 2024-09-07 11:00 | Emergency (ER) | payer BC, SELFPAY ==
[2024-09-07] VITALS (71 sets, daily range): BP systolic 95–126; BP diastolic 41–77; PULSE 73–94; RESP 15–25; TEMP 36.7–36.8; O2SAT 91–958
--- NOTE | 2024-09-07 11:00 | RT.EKG_ITS ---
APPROVED REPORT Exam: Resting ECG Reason for Exam: SOB Patient Location: E HR:88 bpm ECG Measurements Heart Rate 88 AXIS AZ 154 P 67 QRSd 96 QRS 59 QT 359 T 19 QTc 435 Conclusion Sinus rhythm...normal P axis, V-rate 60- 99 Probable left atrial enlargement...P >50mS, <-0.10mV V1 Nonspecific repol abnormality, diffuse leads...ST dep, T flat/neg, ant/lat/inf I have reviewed and interpreted ECG and agree with software generated interpretation.
--- NOTE | 2024-09-07 11:25 | ED.GENADUL_ITS ---
Discharge Plan Disposition Patient Disposition: Transfer-Acute Inpatient Care Specific Acute Inpt Facility: [facility] Condition: Stable Discharge Details Clinical Impression: GI bleeding, Anemia, Non-ST elevation TN (NSTEMI) Primary Care Provider: Melvin Weldon ED Provider: Aguilar Hdz Home Meds and New Rx's Prescriptions: No Action albuterol sulfate 90 mcg/actuation HFA aerosol inhaler 2 inh inhalation Q6H PRN (Reason: shortness of breath or wheezing) Qty: 18 12RF Breztri Aerosphere 160-9-4.8 mcg/actuation HFA aerosol inhaler 2 inh inhalation BID Qty: 10.7 6RF ipratropium-albuterol 0.5 mg-3 mg(2.5 mg base)/3 mL solution for nebulization 3 ml inhalation QID PRN sevelamer HCl 800 mg tablet 800 mg PO TID Rx Instructions: must administer with a meal/food ergocalciferol (vitamin D2) [Vitamin D2] 1,250 mcg (50,000 unit) capsule 50,000 unit PO QWEEK lansoprazole 30 mg capsule,delayed release(DR/EC) 30 mg PO DAILY Qty: 90 4RF Humira(CF) Pen 40 mg/0.4 mL pen injector kit 40 mg SUBCUT Q14D carvedilol 6.25 mg tablet 6.25 mg PO BID Patient Comments: TAKE 1 TABLET BY MOUTH DAILY FOR 21 DAYS THEN TAKE 1 TABLET BY MOUTH TWICE DAILY WITH MEALS HPI General Date/Time Provider Initiated Documentation: 09/07/24 11:11 . HPI Narrative: 64 year-old male presents to ED today by POV/ambulating with a chief complaint of shortness of breath, fatigue with onset over the past few days worse than baseline. Patient has liver CA, receives iron infusions, followed by [facility] Oncology. 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 Severity is described as moderate. Palliating factors include nothing specific attempted. Provoking factors include nothing specific. Patient not anticoagulated. Related Data Home Medications ?Medication ?Instructions ?Recorded ?Confirmed albuterol sulfate 90 mcg/actuation 2 inh inhalation Q6 H PRN shortness 05/09/24 09/07/24 aerosol inhaler of breath or wheezing #18 gr ams adalimumab 40 mg/0.4 mL 40 mg subcut Q14D 06/27/24 0 09/07/24 subcutaneous pen kit (Humira(CF) Pen) Held on 07/06/24. 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 budesonide 160 mcg-glycopyr 9 2 inh inhalation BID #10 .7 grams 06/27/24 09/07/24 mcg-formot 4.8 mcg/actuation HFA inhaler (Breztri Aerosphere) ergocalciferol (vitamin D2) 1,250 50,000 unit PO QWEEK 07/06/24 09/07/24 mcg (50,000 unit) capsule (Vitamin D2) sevelamer HCl 800 mg tablet 800 mg PO TID 07/06/24 ipratropium 0.5 mg-albuterol 3 mg 3 ml inhalation QID PRN 08/08/24 09/07/24 (2.5 mg base)/3 mL nebulization soln lansoprazole 30 mg capsule,delayed 30 mg PO DAILY #90 caps 09/01/24 09/07/24 release carvedilol 6.25 mg tablet 6.25 mg PO BID 09/07/2408/20 Previous Rx's ?Medication ?Instructions ?Recorded albuterol sulfate 90 mcg/actuation 2 inh inhalation Q6 H PRN shortness 05/09/24 aerosol inhaler of breath or wheezing #18 gr ams budesonide 160 mcg-glycopyr 9 2 inh inhalation BID #10 .7 grams 06/27/24 mcg-formot 4.8 mcg/actuation HFA inhaler (Breztri Aerosphere) lansoprazole 30 mg capsule,delayed 30 mg PO DAILY #90 caps 09/01/24 release Allergies Allergy/AdvReac Type Severity Reaction Status Date / Time Penicillins Allergy Intermediate Other (See Verified 09/07/24 11:07 Comment) General Stated Complaint: SOB ROMELIA: 3 Review of Systems All systems reviewed & are unremarkable except as noted in HPI and below Exam Narrative Exam Narrative: GENERAL APPEARANCE: Well-nourished, toxic, awake and alert, atraumatic, moderate acute distress. SKIN: Warm, pale, diaphoretic, intact, without rashes/lesions/ulcerations. HEAD: Normocephalic, atraumatic, normal hair distribution for gender/age. EYES: Normal conjunctiva, no exudates on lids/lashes, no scleral icterus ENT: Nares patent, no circumoral cyanosis, no facial swelling NECK: Supple, trachea midline, painless cervical ROM. LUNGS/CHEST: Lungs - rales and expiratory wheeze at L base, labored respirations, normal A/P diameter, symmetrical expansion, no chest wall deformity HEART (CV/PV): Regular rate and rhythm without murmur, no peripheral edema, no JVD. ABDOMEN: Soft, distended, no guarding, ascites present, no tenderness, has L oblique muscle tenderness. MSK: Normal ROM, no swelling/deformity to bilateral UEs or LEs, moving all extremities without weakness, no cyanosis, spine midline without tenderness, normal curvature. NEURO: Mental Status AAOx4 - alert to person, place, time, events No facial droop, no forehead involvement. Motor: No focal weakness - strength 5/5 in bilateral UEs and LEs, proximal and distal, symmetric. Sensory: sensation intact to light touch globally. Gait NT. PSYCH: euthymic, cooperative, pleasant, appropriate speech Course Vital Signs Vital signs: Vital Signs Temperature 36.7 C 09/07/24 11:04 Pulse 87 09/07/24 11:04 Respiratory Rate 22 09/07/24 11:04 Blood Pressure 98/61 L 09/07/24 11:04 Pulse Oximetry 91 L 09/07/24 11:04 Temperature 36.7 C 09/07/24 11:04 Temperature Source Oral 09/07/24 11:04 Pulse 87 09/07/24 11:04 Respiratory Rate 22 09/07/24 11:04 Blood Pressure 98/61 L 09/07/24 11:04 Blood Pressure Position Sitting 09/07/24 11:04 Pulse Oximetry 91 L 09/07/24 11:04 Oxygen Delivery Method Room Air 09/07/24 11:04 Oxygen Flow Rate 0 09/07/24 11:04 Medical Decision Making This dictation utilizes [id number] dictation software and may contain unedited grammatical errors. 64 year-old male presents to ED today by POV/ambulating with a chief complaint of shortness of breath, fatigue with onset over the past few days worse than baseline. Patient has liver CA, receives iron infusions, followed by [facility] Oncology. 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 Severity is described as moderate. Palliating factors include nothing specific attempted. Provoking factors include nothing specific. Patients' medical history: History of upper GI bleeding August 08, stage IV CKD, liver mass, COPD, edema, psoriasis. Family and social history: Former smoker, denies EtOH use, lives at home with . Pertinent exam findings / vital signs include 3+ pitting edema in the lower extremities, right leg greater than left, ascites without exquisite tenderness, wheezing in the left base with diffuse fine rales at bilateral bases, soft blood pressure systolic in the 90s, labored breathing, pale. Differential / pathologies of concern include Anemia, GI Bleeding, Renal Failure, Metastasis, ACS, PE, PNA, CHF, Pleural Effusion. Diagnostic studies of: -CBC, BMP, liver panel, lipase, ammonia, BNP, CK, magnesium, troponin, lactate, VBG, D-dimer, type and screen, urinalysis EKG, portable chest x-ray. CTA ABD/Pelvis w Contrast after GFR discussion with radiologist Dr. Mcwilliams. - CBC shows leukocytosis with WBCs at 13.09, hemoglobin 4.1 showing profound anemia with a hematocrit of 14.4, platelet count 89 - BMP shows a BUN of 61, creatinine 2.28 - Initial troponin 180, repeat trop 195 - VBG shows pH of 7.42 just above normal, low pCO2 at 37 likely from her ventilation and labored breathing - CK is low do not suspect rhabdomyolysis - BNP is 2105 consider CHF versus renal cause - Albumin 2.8 - PT/PTT rishi-normal -CTA negative for any significant bleeding - Chest x-ray shows question of some increased pulmonary edema more on the left - EKG shows sinus rhythm at 88 bpm with P waves followed by a narrow complex QRS with normal axis, poor R wave progression, some ST depression diffusely, with flattening of T waves lead III Interventions of: - 500 mL NS run slowly for concern for third spacing, 2 units PRBCs, in between units will perform a trial of 20 mg IV Lasix and test urine output. 1 DuoNeb treatment - [facility] Consult paged at 1325 - Spoke with Dr. Almazan at 1510, accepted for admission, will repeat troponins, EKG, CBC, until transfer occurs. Also spoke with transfusion team, they OK'd giving pRBCs with his reactivity with pre- medication. Patient has been responsive to fluids and BP stable after 500mL bolus. -125mg SoluMedrol, 25mg IVP benadryl, 40mg IV protonix given. ED Course/Assessment/Plan: 64-year-old male presents to the ER with significant weakness and shortness of breath over the past few days, he has a liver cancer patient followed by [facility], reports of recent admission there last month with some bleeding noted on EGD colonoscopy, he receives iron infusions here and he was scheduled for 1 today. Hemoglobin found to be 4.1 likely in the setting of chronic GI bleeding down from his prior values in the sevens, he is having some shortness of breath with wheezing and fine rales especially in the left base was given DuoNeb, having increased edema to the lower extremities the past few days not on a diuretic, patient is not anticoagulated. He has diffuse ST depressions on initial EKG as well as initial troponin of 180 rising to 195, further troponins will be trended and EKG will be repeated, I will repeat a CBC after 500 mL bolus, he is rece iving premedication and 2 units of packed red blood cells at time of signout, he is excepted to [facility] pending floor bed, if he has any deterioration [facility] will be notified and he will be excepted to stepdown. Patient has had improved BP since arrival and no further hypoxia after his DuoNeb and fluid bolus. Patient signed out to Olya Parrish, PHONE ENGINEER repeat pending and transfer pending. Disposition of GI Bleeding, Non-ST Elevation TN (NSTEMI), Anemia. Patient verbalized understanding of the plan and return to ED criteria and engaged in shared decision making. Medical Records Medical records reviewed: Yes I reviewed the patient's medical records. Imaging Data Radiologic Study: Attestation: I personally reviewed and interpreted this imaging study as follows: Imaging: X-Ray Radiologist's impression: EXAM: XR PORTABLE CHEST AP CLINICAL HISTORY: shortness of breath TECHNIQUE: 2D digital imaging was performed of the chest. One image was obtained. An AP view was obtained. COMPARISON: CR XR CHEST 2V PA LATERAL from 03/27/[address] CHEST WO from 09/05/2024 FINDINGS: MEDIASTINUM: Normal. HEART: Normal. PULMONARY VASCULATURE: Normal. LUNGS: There are faint increased interstitial markings in the lung bases, left greater than right which are new compared to the CT scan from 09/05/2024. This may represent atelectasis, edema or infection. No focal consolidating infiltrates are seen. PLEURAL SPACE: No pleural effusion or pneumothorax. BONE:Within normal limits for the patient's age. OTHER FINDINGS:Normal. IMPRESSION: Mild increased interstitial markings in the lung bases particularly on the left. This is non-specific and may represent atelectasis, edema or infection. No focal consolidating infiltrates are seen. Radiologic Study #2: Attestation: I personally reviewed and interpreted this imaging study as follows: Imaging: CT Scan Radiologist's impression: EXAM: CT ABDOMEN PELVIS CTA CLINICAL HISTORY: HgB 4.1; ? GI bleeding, known liver CA. TECHNIQUE: Imaging Protocol: Axial CT angiography was performed with multi- slice acquisition and multi-planar and/or 3D reconstructions. CONTRAST MATERIAL: Intravenous: Omnipaque 350 Contrast volume:100 Oral: no COMPARISON: CT CT ABDOMEN PELVIS WO from 05/29/2024 US US RENAL from 06/27/2024 MR MR ABDOMEN WO from 07/28/2024 MR MR ABDOMEN WO/W from 08/01/2024 CR XR PORTABLE CHEST AP from 09/07/2024 FINDINGS: Aorta: No aneurysm. No dissection. No significant stenosis. Moderate atherosclerotic calcification. Iliac Arteries: No evidence of stenosis or aneurysm. Common Femoral Arteries: No evidence of stenosis. Celiac [place]:No evidence of stenosis. SMA: No evidence of stenosis. Renal Arteries: Mild plaque at the origin of the right renal artery. Genp-tt-zduvsecc plaque at the origin of the left renal artery with yeav-ma-pijjpmta stenosis. Small accessory artery feeding the superior pole of the right kidney. GURINDER: Patent. Venous structures: Patent. Lung bases:Bilateral ground ground-glass infiltrates in the lower lobes, right middle lobe and lingula. Tiny bilateral pleural effusions. Liver: The liver is enlarged, particularly the left lobe. Mildly nodular surface consistent with cirrhosis. There is a 2.4 centimeter hypoechoic lesion in the posterior right lobe mass noted on previous MRI. No additional liver lesions are visible. Gallbladder and biliary tract: No evidence of calculi. No gallbladder wall thickening. No biliary dilation. Pancreas: Normal density, no abnormal calcifications or inflammatory process. Spleen: Normal. Kidneys: Normal size, contour and axis. No obstructive uropathy. No masses seen. No evidence of calculi. Adrenal glands: No masses seen. Bladder: Over distended. No gross wall thickening. No evidence of calculi. No evidence of mass. Bowel: No obstruction or bowel wall thickening. Diverticulosis, greatest at the descending and sigmoid colon. No evidence of diverticulitis. The appendix is normal. Peritoneal cavity: Small amount of ascites is noted around the liver and gallbladder. Mild fluid along the paracolic gutters and right lower quadrant. No focal collection. No mesenteric inflammatory response. Lymph nodes: Within normal limits. Reproductive: Unremarkable. Soft Tissues:Mild edema in the subcutaneous fat. Bones: No acute findings. IMPRESSION: No visible active GI bleed. Diverticulosis without evidence of diverticulitis. Stable appearance of mass in the right lobe of of the liver. Small amount of ascites. Lab Data Lab results reviewed: Yes I reviewed the patient's lab results. Labs: Laboratory Tests Range/Units 09/07/24 09/07/24 09/07/24 11:50 13:02 13:24 WBC (4.4-10.8) 10^3/uL 13.09 H RBC (4.36-5.78) 10^6/uL 1.57 L Hgb (13.5-17.5) g/dL 4.1 L* Hct (40.0-50.0) % 14.4 L* MCV (80-95) fL 92 MCH (27.0-33.0) pg 26.1 L MCHC (32.0-36.0) % 28.5 L RDW (11.8-14.1) % 14.9 H Plt Count (130-400) 10^3/uL 89 L MPV (8.0-11.0) fL 9.5 Immature Gran % % 0.5 Neutrophils % % 93.4 Lymphocytes % % 1.2 Monocytes % % 4.7 Eosinophils % % 0.1 Basophils % % 0.1 Nucleated RBC % (0.0-0.3) % 0.2 Absolute Neutrophils (1.2-6.7) 10^3/uL 12.23 H Absolute Lymphocytes (1.2-3.4) 10^3/uL 0.16 L Absolute Monocytes (0.1-0.8) 10^3/uL 0.62 Absolute Eosinophils (0.0-0.7) 10^3/uL 0.01 Absolute Basophils (0.0-0.2) 10^3/uL 0.01 RBC Morphology Normal PT (9.1-11.1) sec 11.2 H INR (0.9-1.1) 1.1 APTT (20.6-30.2) sec 19.8 L D-Dimer (<500) ng/mlFEU 326 VBG pH (7.31-7.41) 7.42 H VBG pCO2 (41-51) mmHg 37 L VBG pO2 mmHg 34 VBG HCO3 (23-28) mmol/L 24 VBG Total CO2 (24-29) mmol/L 24 VBG O2 Saturation % 63 VBG Base Excess (-2-3) mmol/L 0 VBG Lactate (<or=2.0) mmol/L 1.7 Sodium (136-145) mmol/L 141 Potassium (3.5-5.1) mmol/L 4.2 Chloride (98-107) mmol/L 107 Carbon Dioxide (21.0-32.0) mmol/L 25.5 Anion Gap (3-11) mmol/L 8.5 BUN (7-18) mg/dL 61 H Creatinine (0.70-1.30) mg/dL Est GFR (CKD-EPI 2020) (mL/min/1.73m2) Glucose (74-106) mg/dL 114 H Calcium (8.5-10.1) mg/dL 8.2 L Magnesium (1.8-2.4) mg/dL 2.0 Total Bilirubin (0.2-1.0) mg/dL 0.6 Conjugated Bilirubin (0.0-0.2) mg/dL 0.2 AST (15-37) U/L 22 ALT (16-63) U/L 34 Alkaline Phosphatase (46-116) U/L 58 Ammonia (11-32) umol/L 12 Creatine Kinase (39-308) U/L 32 L Troponin I (<or=76) ng/L 180 H* 195 H* NT-Pro-B Natriuret Pep (<300) pg/mL 2105 H Total Protein (6.4-8.2) g/dL 5.8 L Albumin (3.4-5.0) g/dL 2.8 L Lipase (<78) U/L 53 ABO/Rh A Positive Antibody Screen NEGATIVE Crossmatch See Detail Quality:SDOH Health Related Social Needs: Health related social needs food insecurity lonely/iso lated Health related social needs details N/A Critical Care Time Critical Care Time Critical Care Time: Yes Total Critical Care Time: 30 Attestation: Upon my evaluation, this patient had a high probability of imminent or life- threatening deterioration due to profound anemia requiring transfusion, m, which required my direct attention, intervention, and personal management. I have personally provided 30 minutes of critical care time exclusive of time spent on separately billable procedures. Time includes review of laboratory data, radiology results, discussion with consultants, and monitoring for potential decompensation. Interventions were performed as documented above, including monitoring of critical vital signs, ordering critical medications from bedside, and re-assessing effectiveness, repeating critical exam findings, and reviewing patients' chart. PFSH All Active Problems (Updated 09/07/24 @ 15:30 by PHOEBE Moe) Non-ST elevation TN (NSTEMI) (Acute) Anemia (Chronic) GI bleeding (Chronic) Upper GI bleed (Acute ~07/2024) Hepatomegaly, not elsewhere classified (Acute) Proteinuria (Acute) Thrombocytopenia (Chronic) Kidney failure (Chronic) Blood loss anemia (Acute) DVT prophylaxis (Acute) Liver mass, right lobe (Acute) Glomerulonephritis (Acute) Lower extremity edema (Acute) R>L Dyspnea on exertion (Acute) Former smoker (Acute) Abnormal CT lung screening (Acute) Gross hematuria (Acute) Family history of prostate cancer in father (Acute) Snoring (Acute) COPD (chronic obstructive pulmonary disease) (Chronic) Edema (Acute) Right leg swelling (Acute) Erectile dysfunction (Acute) Nail dystrophy (Acute) Pincer nail deformity (Acute) Annual physical exam (Acute) Allergic rhinitis (Acute) Tobacco use disorder (Acute) Psoriasis (Chronic 10/21/15) Medical History Dyspnea Family history of colon cancer Impacted cerumen of left ear Nicotine dependence Psoriasis Colon cancer screening Screening cholesterol level Psoriasis Impacted cerumen of right ear (10/14/15) Family History Mother Diabetes Father Neoplasm PROSTATE Sister Neoplasm BREAST Daughter No problems noted. Social History Smoking/Tobacco Use Status: Current-Occasional Tobacco Type: cigarettes Tobacco: How many years used: 40 Quit status: has quit before Second Hand Exposure: Yes Counseling given: provider counseling Smoking risk assessment performed?: Yes Alcohol Intake: current Alcohol Intake frequency: 0-2 drinks per day Alcohol type: hard liquor Details: 6 or more drinks monthly Drug use: Never Substance use type: does not use Counseling provided: none Adopted: No Caregiver/Support person: No Household members: none Housing: house Number of Children: 1 number of grandchildren: 0 Communication Needs: None Education Level: high school Details: 12th Do you need help understanding health information?: Rarely 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 Pets and animals: No Sexually active: Yes Do you think of yourself as: straight/heterosexual Current gender identity: male What is your relationship status?: How often do you talk on the phone with friends or family?: three or more times per week How often do you get together with friends or relatives?: once per week How often do you attend synagogue or pentecostalism services?: 1-3 times per year Do you belong to any clubs or organized social groups?: no Panel score (0-1 are the most socially isolated patients): 1 What type of physical activity do you participate in: none Frequency: does not exercise Jeanna/Holiness: None Special jeanna needs: No Seatbelt use: always Helmet use: No Drive intox or ride w/intox experienced truck driver: No Firearms in home: Yes Firearms unloaded and locked: Yes Do you feel safe at home: Yes Victim of physical abuse: No Victim of emotional abuse: No Victim of sexual abuse: No Would you like helpful sources: No 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 Lives in [place]
[2024-09-07 12:04] LABS: BE (Venous) 0 mmol/L (-2-3); HCO3 (Venous) 24 mmol/L (23-28); Lactate 1.7 mmol/L (<or=2.0); O2 Sat (Venous) 63 %; TCO2 (Venous) 24 mmol/L (24-29); pCO2 (Venous) 37 mmHg (41-51); pH (Venous) 7.42 (7.31-7.41); pO2 (Venous) 34 mmHg
[2024-09-07 12:08] LABS: Abs Immature Grans 0.07 10^3/uL (0.0-0.06); Absolute Basophil Count 0.01 10^3/uL (0.0-0.2); Absolute Eosinophil Count 0.01 10^3/uL (0.0-0.7); Absolute Lymphocyte Count 0.16 10^3/uL (1.2-3.4); Absolute Neutrophil Count 12.23 10^3/uL (1.2-6.7); Basophils % 0.1 %; Eosinophils % 0.1 %; Immature Grans % 0.5 %; Lymphocytes % 1.2 %; MCH 26.1 pg (27.0-33.0); MCHC 28.5 % (32.0-36.0); MCV 92 fL (80-95); MPV 9.5 fL (8.0-11.0); Monocytes % 4.7 %; Neutrophils % 93.4 %; Nucleated RBC 0.2 % (0.0-0.3); RBC 1.57 10^6/uL (4.36-5.78); RDW 14.9 % (11.8-14.1); RDW-SD 49.5 fL; WBC 13.09 10^3/uL (4.4-10.8)
[2024-09-07 12:13] LABS: Absolute Monocyte Count 0.62 10^3/uL (0.1-0.8)
[2024-09-07 12:14] LABS: HCT 14.4 % (40.0-50.0); HGB 4.1 g/dL (13.5-17.5)
[2024-09-07 12:24] LABS: Ammonia 12 umol/L (11-32)
[2024-09-07 12:27] LABS: Diff Comment Diff Reviewed; Platelet Count 89 10^3/uL (130-400); RBC Morphology Normal
--- NOTE | 2024-09-07 12:30 | DI.RAD_ITS ---
Exam(s) XR PORTABLE CHEST AP EXAM: XR PORTABLE CHEST AP CLINICAL HISTORY: shortness of breath TECHNIQUE: 2D digital imaging was performed of the chest. One image was obtained. An AP view was obtained. COMPARISON: CR XR CHEST 2V PA LATERAL from 03/27/[address] CHEST WO from 09/05/2024 FINDINGS: MEDIASTINUM: Normal. HEART: Normal. PULMONARY VASCULATURE: Normal. LUNGS: There are faint increased interstitial markings in the lung bases, left greater than right which are new compared to the CT scan from 09/05/2024. This may represent atelectasis, edema or infection. No focal consolidating infiltrates are seen. PLEURAL SPACE: No pleural effusion or pneumothorax. BONE:Within normal limits for the patient's age. OTHER FINDINGS:Normal. IMPRESSION: Mild increased interstitial markings in the lung bases particularly on the left. This is non-specific and may represent atelectasis, edema or infection. No focal consolidating infiltrates are seen. DATA REPOSITORY: RADIATION DOSE DELIVERED:
[2024-09-07 12:34] LABS: D-Dimer 326 ng/mlFEU (<500)
[2024-09-07 12:52] LABS: ALT 34 U/L (16-63); AST 22 U/L (15-37); Albumin 2.8 g/dL (3.4-5.0); Alkaline Phosphatase 58 U/L (46-116); Anion Gap 8.5 mmol/L (3-11); BUN 61 mg/dL (7-18); Bilirubin, Direct 0.2 mg/dL (0.0-0.2); Bilirubin, Total 0.6 mg/dL (0.2-1.0); CO2 25.5 mmol/L (21.0-32.0); Calcium 8.2 mg/dL (8.5-10.1); Chloride 107 mmol/L (98-107); Creatine Kinase 32 U/L (39-308); Glucose 114 mg/dL (74-106); Lipase 53 U/L (<78); NT-proBNP 2105 pg/mL (<300); Potassium 4.2 mmol/L (3.5-5.1); Sodium 141 mmol/L (136-145); Total Protein 5.8 g/dL (6.4-8.2)
[2024-09-07 12:54] LABS: Troponin I 180 ng/L (<or=76)
[2024-09-07 13:49] LABS: Troponin I 195 ng/L (<or=76)
[2024-09-07 13:53] LABS: INR 1.1 (0.9-1.1); PTT Activated 19.8 sec (20.6-30.2); Prothrombin Time 11.2 sec (9.1-11.1)
[2024-09-07] MEDS: Normal Saline 500 ML IV (14:45)
[2024-09-07] MEDS: Omnipaque 350 MG/ML 100 ML BTL IJ (14:48)
[2024-09-07] MEDS: Normal Saline - Diluent 50 ML VIAL IJ (14:49)
--- NOTE | 2024-09-07 14:50 | DI.CT_ITS ---
Exam(s) CT ABDOMEN PELVIS CTA EXAM: CT ABDOMEN PELVIS CTA CLINICAL HISTORY: HgB 4.1; ? GI bleeding, known liver CA. TECHNIQUE: Imaging Protocol: Axial CT angiography was performed with multi- slice acquisition and multi-planar and/or 3D reconstructions. CONTRAST MATERIAL: Intravenous: Omnipaque 350 Contrast volume:100 Oral: no COMPARISON: CT CT ABDOMEN PELVIS WO from 05/29/2024 US US RENAL from 06/27/2024 MR MR ABDOMEN WO from 07/28/2024 MR MR ABDOMEN WO/W from 08/01/2024 CR XR PORTABLE CHEST AP from 09/07/2024 FINDINGS: Aorta: No aneurysm. No dissection. No significant stenosis. Moderate atherosclerotic calcification. Iliac Arteries: No evidence of stenosis or aneurysm. Common Femoral Arteries: No evidence of stenosis. Celiac [place]:No evidence of stenosis. SMA: No evidence of stenosis. Renal Arteries: Mild plaque at the origin of the right renal artery. Ohln-om-ruiryuhy plaque at the origin of the left renal artery with [id number] stenosis. Small accessory artery feeding the superior pole of the right kidney. GURINDER: Patent. Venous structures: Patent. Lung bases:Bilateral ground ground-glass infiltrates in the lower lobes, right middle lobe and lingula. Tiny bilateral pleural effusions. Liver: The liver is enlarged, particularly the left lobe. Mildly nodular surface consistent with cirrhosis. There is a 2.4 centimeter hypoechoic lesion in the posterior right lobe mass noted on previous MRI. No additional liver lesions are visible. Gallbladder and biliary tract: No evidence of calculi. No gallbladder wall thickening. No biliary dilation. Pancreas: Normal density, no abnormal calcifications or inflammatory process. Spleen: Normal. Kidneys: Normal size, contour and axis. No obstructive uropathy. No masses seen. No evidence of calculi. Adrenal glands: No masses seen. Bladder: Over distended. No gross wall thickening. No evidence of calculi. No evidence of mass. Bowel: No obstruction or bowel wall thickening. Diverticulosis, greatest at the descending and sigmoid colon. No evidence of diverticulitis. The appendix is normal. Peritoneal cavity: Small amount of ascites is noted around the liver and gallbladder. Mild fluid along the paracolic gutters and right lower quadrant. No focal collection. No mesenteric inflammatory response. Lymph nodes: Within normal limits. Reproductive: Unremarkable. Soft Tissues:Mild edema in the subcutaneous fat. Bones: No acute findings. IMPRESSION: No visible active GI bleed. Diverticulosis without evidence of diverticulitis. Stable appearance of mass in the right lobe of of the liver. Small amount of ascites. RADIATION DOSE DELIVERED: Total DLP DATA REPOSITORY: All CT scans at this facility are submitted to the National Radiology Data Registry (NRDR) Dose Index Registry (DIR) with the [employer] (A[employer]). RADIATION OPTIMIZATION: All CT scans at this facility use at least one of these dose optimization techniques: automated exposure control; mA and/or kV adjustment per patient size (includes targeted exams where dose is matched to clinical indication); or iterative reconstruction.
--- NOTE | 2024-09-07 15:00 | RT.EKG_ITS ---
APPROVED REPORT Exam: Resting ECG Reason for Exam: rpt EKG Patient Location: E HR:82 bpm ECG Measurements Heart Rate 82 AXIS KS 165 P 69 QRSd 94 QRS 65 QT 378 T 37 QTc 443 Conclusion Sinus rhythm...normal P axis, V-rate 60- 99 Probable left atrial enlargement...P >50mS, <-0.10mV V1 Nonspecific repol abnormality, diffuse leads...ST dep, T flat/neg, ant/lat/inf Physician: stable
[2024-09-07] MEDS: diphenhydrAMINE 50 MG/ML VIAL 25 MG IVP (15:23)
[2024-09-07] MEDS: methylPREDNISolone SUCC 125 MG VIAL IVP (15:23)
[2024-09-07] MEDS: Pantoprazole 40 MG VIAL IVP (15:23)
[2024-09-07 15:35] LABS: Abs Immature Grans 0.09 10^3/uL (0.0-0.06); Absolute Lymphocyte Count 0.18 10^3/uL (1.2-3.4); Absolute Neutrophil Count 11.08 10^3/uL (1.2-6.7); Immature Grans % 0.8 %; Lymphocytes % 1.5 %; MCH 26.3 pg (27.0-33.0); MCHC 28.8 % (32.0-36.0); MCV 91 fL (80-95); MPV 9.6 fL (8.0-11.0); Monocytes % 3.2 %; Neutrophils % 94.5 %; RBC 1.52 10^6/uL (4.36-5.78); RDW 14.8 % (11.8-14.1); RDW-SD 49.6 fL; WBC 11.72 10^3/uL (4.4-10.8)
[2024-09-07 15:40] LABS: Absolute Monocyte Count 0.38 10^3/uL (0.1-0.8)
[2024-09-07 15:43] LABS: HCT 13.9 % (40.0-50.0)
[2024-09-07 15:54] LABS: Platelet Count 85 10^3/uL (130-400)
[2024-09-07 16:03] LABS: Bilirubin Negative (Negative); Blood Moderate (Negative); Clarity Clear (Clear); Glucose 250 mg/dL (Negative); Ketones Negative (Negative); Leukocyte Esterase Negative (Negative); Nitrite Negative (Negative); Urobilinogen 0.2 mg/dL (Up to 0.2); pH 5.5 (5-8)
[2024-09-07 16:21] LABS: Bacteria Rare HPF (Negative); C & S Indicated? No; Casts Negative LPF (Negative); Crystals Negative HPF (Negative); Epithelial Cells Rare HPF (Negative); Mucus Negative (Negative); Other Cells Rare Yeast (Negative); WBC 0-2 HPF (0-5)
== END 2024-09-07 17:34 | disposition short-term general hospital (02) ==
PROVIDERS: Emergency Provider Physician Assistant; PCP Nurse Practitioner Family
DX: K92.2 Gastrointestinal hemorrhage, unspecified (principal); D64.9 Anemia, unspecified; I21.4 Non-ST elevation (NSTEMI) myocardial infarction; C22.0 Liver cell carcinoma; F17.210 Nicotine dependence, cigarettes, uncomplicated
CPT/HCPCS: 36415; 36430; 80048; 80076; 82550; 82805; 83690; 86850; 86900; 86901; 86920; 93005; 94640; 96361; 96374; 96375; 99285; 71045; 74174; 81003; 81015; 82140; 82728; 83540; 83550; 83605; 83735; 83880; 84484; 85025; 85379; 85610; 85730; 93010; J1200; J2470; J2919; J3490; P9016

== ENCOUNTER 2024-09-13 01:32 | Outpatient (CLI) | payer BC, SELFPAY ==
[2024-09-13 11:20] LABS: Abs Immature Grans 0.02 10^3/uL (0.0-0.06); Absolute Eosinophil Count 0.01 10^3/uL (0.0-0.7); Absolute Lymphocyte Count 0.18 10^3/uL (1.2-3.4); Absolute Monocyte Count 0.22 10^3/uL (0.1-0.8); Eosinophils % 0.2 %; HCT 26.6 % (40.0-50.0); HGB 8.2 g/dL (13.5-17.5); Immature Grans % 0.3 %; Lymphocytes % 2.7 %; MCH 27.4 pg (27.0-33.0); MCHC 30.8 % (32.0-36.0); MCV 89 fL (80-95); MPV 9.1 fL (8.0-11.0); Monocytes % 3.3 %; Neutrophils % 93.5 %; RBC 2.99 10^6/uL (4.36-5.78); RDW 14.9 % (11.8-14.1); RDW-SD 48.2 fL; WBC 6.63 10^3/uL (4.4-10.8)
[2024-09-13 11:50] LABS: Platelet Count 67 10^3/uL (130-400)
[2024-09-13 11:51] LABS: RBC Morphology Normal
[2024-09-13 12:03] LABS: ALT 36 U/L (16-63); AST 26 U/L (15-37); Albumin 2.7 g/dL (3.4-5.0); Alkaline Phosphatase 65 U/L (46-116); Anion Gap 9.8 mmol/L (3-11); BUN 35 mg/dL (7-18); Bilirubin, Total 0.5 mg/dL (0.2-1.0); CO2 25.2 mmol/L (21.0-32.0); CREATININE 1.8 mg/dL (0.70-1.30); Calcium 8.6 mg/dL (8.5-10.1); Chloride 106 mmol/L (98-107); Estimated GFR 42.03 (mL/min/1.73m2); Glucose 130 mg/dL (74-106); Potassium 4.1 mmol/L (3.5-5.1); Sodium 141 mmol/L (136-145); Total Protein 5.7 g/dL (6.4-8.2)
[2024-09-13 12:56] LABS: COMMENT (LAB VIEW ONLY) 33.69 mg/dL; PROTEIN 18.4 mg/dL; Prot/Crea Ur Ratio 0.54
== END 2024-09-13 01:33 | disposition home or self-care (01) ==
PROVIDERS: PCP Nurse Practitioner Family; Visit Provider Internal Medicine
DX: N02.B9 Other recurrent and persistent immunoglobulin A nephropathy (principal); N17.9 Acute kidney failure, unspecified; D64.9 Anemia, unspecified
CPT/HCPCS: 36415; 80053; 82565; 84156; 85025

== ENCOUNTER 2024-09-18 18:46 | Outpatient (REF) | payer BC, SELFPAY ==
[2024-09-18 22:12] LABS: HCT 28.5 % (40.0-50.0); HGB 8.6 g/dL (13.5-17.5); MCH 27.3 pg (27.0-33.0); MCHC 30.2 % (32.0-36.0); MCV 91 fL (80-95); MPV 9.9 fL (8.0-11.0); Platelet Count 101 10^3/uL (130-400); RBC 3.15 10^6/uL (4.36-5.78); RDW-SD 49.3 fL; WBC 6.91 10^3/uL (4.4-10.8)
[2024-09-18 22:27] LABS: Iron 26 ug/dL (65-175); Total Iron Binding Capacity 401 ug/dL (250-450)
[2024-09-18 22:46] LABS: ALT 52 U/L (16-63); AST 25 U/L (15-37); Albumin 3.2 g/dL (3.4-5.0); Alkaline Phosphatase 72 U/L (46-116); Anion Gap 8.4 mmol/L (3-11); BUN 38 mg/dL (7-18); Bilirubin, Total 0.4 mg/dL (0.2-1.0); CO2 28.6 mmol/L (21.0-32.0); CREATININE 1.6 mg/dL (0.70-1.30); Calcium 8.8 mg/dL (8.5-10.1); Chloride 105 mmol/L (98-107); Estimated GFR 48.41 (mL/min/1.73m2); Ferritin 46 ng/mL (26-388); Glucose 123 mg/dL (74-106); Potassium 4.1 mmol/L (3.5-5.1); Sodium 142 mmol/L (136-145); Total Protein 5.9 g/dL (6.4-8.2)
== END 2024-09-18 18:47 | disposition home or self-care (01) ==
LOC: LBN 18:46
PROVIDERS: PCP Nurse Practitioner Family; Visit Provider Nurse Practitioner Family
DX: D64.9 Anemia, unspecified (principal); C22.9 Malignant neoplasm of liver, not specified as primary or secondary
CPT/HCPCS: 80053; 85027; 82728; 83540; 83550

== ENCOUNTER 2024-09-26 02:58 | Outpatient (CLI) | payer BC, SELFPAY ==
[2024-09-26 12:34] LABS: Abs Immature Grans 0.06 10^3/uL (0.0-0.06); HCT 28.4 % (40.0-50.0); HGB 8.7 g/dL (13.5-17.5); Immature Grans % 0.7 %; MCH 27.8 pg (27.0-33.0); MCHC 30.6 % (32.0-36.0); MCV 91 fL (80-95); MPV 9.2 fL (8.0-11.0); Platelet Count 101 10^3/uL (130-400); RBC 3.13 10^6/uL (4.36-5.78); RDW 15.6 % (11.8-14.1); RDW-SD 52.4 fL; WBC 8.14 10^3/uL (4.4-10.8)
[2024-09-26 12:57] LABS: ALT 58 U/L (16-63); AST 29 U/L (15-37); Albumin 2.8 g/dL (3.4-5.0); Alkaline Phosphatase 74 U/L (46-116); Anion Gap 8.5 mmol/L (3-11); BUN 45 mg/dL (7-18); Bilirubin, Total 0.5 mg/dL (0.2-1.0); CO2 27.5 mmol/L (21.0-32.0); Calcium 8.5 mg/dL (8.5-10.1); Chloride 103 mmol/L (98-107); Estimated GFR 34.93 (mL/min/1.73m2); Glucose 111 mg/dL (74-106); Potassium 4.0 mmol/L (3.5-5.1); Sodium 139 mmol/L (136-145); Total Protein 5.9 g/dL (6.4-8.2)
== END 2024-09-26 02:59 | disposition home or self-care (01) ==
LOC: LOS 02:58
PROVIDERS: PCP Nurse Practitioner Family; Visit Provider Nurse Practitioner Family
DX: K92.2 Gastrointestinal hemorrhage, unspecified (principal); C22.9 Malignant neoplasm of liver, not specified as primary or secondary; N19 Unspecified kidney failure; D64.9 Anemia, unspecified
CPT/HCPCS: 36415; 80053; 85025

== ENCOUNTER 2024-10-05 01:30 | Outpatient (CLI) | payer BC, SELFPAY ==
[2024-10-05 12:47] LABS: Abs Immature Grans 0.06 10^3/uL (0.0-0.06); HCT 28.8 % (40.0-50.0); HGB 8.6 g/dL (13.5-17.5); Immature Grans % 0.9 %; MCH 27.3 pg (27.0-33.0); MCHC 29.9 % (32.0-36.0); MCV 91 fL (80-95); MPV 9.3 fL (8.0-11.0); RBC 3.15 10^6/uL (4.36-5.78); RDW 15.9 % (11.8-14.1); RDW-SD 53.5 fL; WBC 6.78 10^3/uL (4.4-10.8)
[2024-10-05 12:58] LABS: Platelet Count 89 10^3/uL (130-400); RBC Morphology Normal
[2024-10-05 13:10] LABS: ALT 97 U/L (16-63); AST 29 U/L (15-37); Albumin 3.0 g/dL (3.4-5.0); Alkaline Phosphatase 63 U/L (46-116); Anion Gap 10.7 mmol/L (3-11); BUN 52 mg/dL (7-18); Bilirubin, Total 0.6 mg/dL (0.2-1.0); CO2 26.3 mmol/L (21.0-32.0); Calcium 9.3 mg/dL (8.5-10.1); Chloride 107 mmol/L (98-107); Estimated GFR 37.04 (mL/min/1.73m2); Glucose 126 mg/dL (74-106); Potassium 4.1 mmol/L (3.5-5.1); Sodium 144 mmol/L (136-145); Total Protein 6.0 g/dL (6.4-8.2)
== END 2024-10-05 01:31 | disposition home or self-care (01) ==
LOC: LOS 01:31
PROVIDERS: PCP Nurse Practitioner Family; Visit Provider Nurse Practitioner Family
DX: C22.9 Malignant neoplasm of liver, not specified as primary or secondary (principal); D64.9 Anemia, unspecified; N19 Unspecified kidney failure; K92.2 Gastrointestinal hemorrhage, unspecified
CPT/HCPCS: 36415; 80053; 85025

== ENCOUNTER 2024-10-11 02:29 | Outpatient (CLI) | payer BC, SELFPAY ==
[2024-10-11 12:43] LABS: Abs Immature Grans 0.10 10^3/uL (0.0-0.06); HCT 28.0 % (40.0-50.0); HGB 8.1 g/dL (13.5-17.5); Immature Grans % 1.7 %; MCH 26.5 pg (27.0-33.0); MCHC 28.9 % (32.0-36.0); MCV 92 fL (80-95); MPV 9.1 fL (8.0-11.0); Platelet Count 100 10^3/uL (130-400); RBC 3.06 10^6/uL (4.36-5.78); RDW 16.1 % (11.8-14.1); RDW-SD 53.9 fL; WBC 5.96 10^3/uL (4.4-10.8)
[2024-10-11 13:03] LABS: Hypochromasia 1+
[2024-10-11 13:09] LABS: ALT 47 U/L (16-63); AST 19 U/L (15-37); Albumin 2.7 g/dL (3.4-5.0); Alkaline Phosphatase 64 U/L (46-116); Anion Gap 3.8 mmol/L (3-11); BUN 40 mg/dL (7-18); Bilirubin, Total 0.4 mg/dL (0.2-1.0); CO2 31.2 mmol/L (21.0-32.0); Calcium 8.9 mg/dL (8.5-10.1); Chloride 107 mmol/L (98-107); Estimated GFR 48.41 (mL/min/1.73m2); Glucose 113 mg/dL (74-106); Potassium 4.0 mmol/L (3.5-5.1); Sodium 142 mmol/L (136-145); Total Protein 5.6 g/dL (6.4-8.2)
== END 2024-10-11 02:30 | disposition home or self-care (01) ==
LOC: LOS 02:29
PROVIDERS: PCP Nurse Practitioner Family; Visit Provider Nurse Practitioner Family
DX: C22.9 Malignant neoplasm of liver, not specified as primary or secondary (principal); D64.9 Anemia, unspecified; N19 Unspecified kidney failure; K92.2 Gastrointestinal hemorrhage, unspecified
CPT/HCPCS: 36415; 80053; 85025

== ENCOUNTER 2024-10-16 09:34 | Outpatient (CLI) | payer BC, SELFPAY ==
[2024-10-16 12:17] LABS: Abs Immature Grans 0.02 10^3/uL (0.0-0.06); HCT 25.1 % (40.0-50.0); HGB 7.5 g/dL (13.5-17.5); Immature Grans % 0.4 %; MCH 27.2 pg (27.0-33.0); MCHC 29.9 % (32.0-36.0); MCV 91 fL (80-95); MPV 9.1 fL (8.0-11.0); RBC 2.76 10^6/uL (4.36-5.78); RDW 16.2 % (11.8-14.1); RDW-SD 54.0 fL; WBC 4.46 10^3/uL (4.4-10.8)
[2024-10-16 12:32] LABS: Platelet Count 88 10^3/uL (130-400)
[2024-10-16 12:33] LABS: RBC Morphology Normal
[2024-10-16 13:17] LABS: ALT 36 U/L (16-63); AST 22 U/L (15-37); Albumin 2.8 g/dL (3.4-5.0); Alkaline Phosphatase 64 U/L (46-116); Anion Gap 7.3 mmol/L (3-11); BUN 36 mg/dL (7-18); Bilirubin, Total 0.5 mg/dL (0.2-1.0); CO2 28.7 mmol/L (21.0-32.0); Calcium 8.6 mg/dL (8.5-10.1); Chloride 106 mmol/L (98-107); Estimated GFR 45.02 (mL/min/1.73m2); Glucose 98 mg/dL (74-106); Potassium 3.7 mmol/L (3.5-5.1); Sodium 142 mmol/L (136-145); Total Protein 5.7 g/dL (6.4-8.2)
== END 2024-10-16 09:35 | disposition home or self-care (01) ==
LOC: LOS 09:35
PROVIDERS: PCP Nurse Practitioner Family; Visit Provider Nurse Practitioner Family
DX: C22.9 Malignant neoplasm of liver, not specified as primary or secondary (principal); D64.9 Anemia, unspecified; N19 Unspecified kidney failure; I10 Essential (primary) hypertension
CPT/HCPCS: 36415; 80053; 85025

== ENCOUNTER 2024-10-17 04:27 | Outpatient (RCR) | payer BC, SELFPAY ==
[2024-10-17] MEDS: Normal Saline Flush 10 ML SYR IVP (11:06)
[2024-10-17] MEDS: IRON SUCROSE COMPLEX 300 MG in Normal Saline 250 ML 176.667 MG IVPB (11:06)
[2024-10-17 11:31] LABS: Abs Immature Grans 0.02 10^3/uL (0.0-0.06); HCT 22.4 % (40.0-50.0); Immature Grans % 0.5 %; MCH 27.5 pg (27.0-33.0); MCHC 30.8 % (32.0-36.0); MCV 89 fL (80-95); MPV 9.2 fL (8.0-11.0); RBC 2.51 10^6/uL (4.36-5.78); RDW 16.1 % (11.8-14.1); RDW-SD 52.8 fL; WBC 4.22 10^3/uL (4.4-10.8)
[2024-10-17 11:49] LABS: Anisocytosis 2+; Hypochromasia 1+; Platelet Count 79 10^3/uL (130-400)
[2024-10-17 11:54] LABS: HGB 6.9 g/dL (13.5-17.5)
== END 2024-10-19 23:59 | disposition home or self-care (01) ==
LOC: INF 04:27
PROVIDERS: Internal Medicine; PCP Nurse Practitioner Family; Visit Provider Family Medicine
DX: N17.9 Acute kidney failure, unspecified (principal); D64.9 Anemia, unspecified; D50.9 Iron deficiency anemia, unspecified
CPT/HCPCS: 36415; 96365; 96366; 85025; J1756

== ENCOUNTER 2024-11-01 02:12 | Outpatient (RCR) | payer BC, SELFPAY ==
[2024-10-24] MEDS: IRON SUCROSE COMPLEX 300 MG in Normal Saline 250 ML 176.667 MG IVPB (10:42)
[2024-10-24] MEDS: Normal Saline Flush 10 ML SYR IVP (10:43)
[2024-10-24 12:23] LABS: HCT 27.5 % (40.0-50.0); HGB 8.5 g/dL (13.5-17.5); MCH 28.2 pg (27.0-33.0); MCHC 30.9 % (32.0-36.0); MCV 91 fL (80-95); MPV 10.3 fL (8.0-11.0); Platelet Count 130 10^3/uL (130-400); RBC 3.01 10^6/uL (4.36-5.78); RDW 17.2 % (11.8-14.1); RDW-SD 56.5 fL; WBC 3.79 10^3/uL (4.4-10.8)
[2024-11-01] MEDS: Normal Saline Flush 10 ML SYR IVP (11:11)
[2024-11-01] MEDS: IRON SUCROSE COMPLEX 300 MG in Normal Saline 250 ML 176.667 MG IVPB (11:11)
[2024-11-01 11:31] LABS: HCT 28.7 % (40.0-50.0); HGB 8.8 g/dL (13.5-17.5); MCH 28.5 pg (27.0-33.0); MCHC 30.7 % (32.0-36.0); MCV 93 fL (80-95); MPV 9.5 fL (8.0-11.0); Platelet Count 109 10^3/uL (130-400); RBC 3.09 10^6/uL (4.36-5.78); RDW 17.2 % (11.8-14.1); RDW-SD 57.2 fL; WBC 7.51 10^3/uL (4.4-10.8)
== END 2024-11-19 23:59 | disposition home or self-care (01) ==
LOC: INF 02:12
PROVIDERS: PCP Nurse Practitioner Family; Visit Provider Family Medicine
DX: N17.9 Acute kidney failure, unspecified (principal); D50.9 Iron deficiency anemia, unspecified
CPT/HCPCS: 36415; 36591; 85027; 96365; 96366; J1756

== ENCOUNTER 2024-11-07 02:37 | Outpatient (CLI) | payer BC, SELFPAY ==
[2024-11-07 12:44] LABS: HCT 28.9 % (40.0-50.0); HGB 8.9 g/dL (13.5-17.5); MCH 29.7 pg (27.0-33.0); MCHC 30.8 % (32.0-36.0); MCV 96 fL (80-95); MPV 9.9 fL (8.0-11.0); Platelet Count 105 10^3/uL (130-400); RBC 3.00 10^6/uL (4.36-5.78); RDW 17.9 % (11.8-14.1); RDW-SD 62.4 fL; WBC 7.84 10^3/uL (4.4-10.8)
== END 2024-11-07 02:38 | disposition home or self-care (01) ==
LOC: LOS 02:38
PROVIDERS: PCP Nurse Practitioner Family; Visit Provider Nurse Practitioner Family
DX: K92.2 Gastrointestinal hemorrhage, unspecified (principal)
CPT/HCPCS: 36415; 85027

== ENCOUNTER 2024-11-15 02:22 | Outpatient (CLI) | payer BC, SELFPAY ==
[2024-11-15 12:30] LABS: HCT 27.3 % (40.0-50.0); HGB 8.2 g/dL (13.5-17.5); MCH 29.0 pg (27.0-33.0); MCHC 30.0 % (32.0-36.0); MCV 97 fL (80-95); MPV 9.8 fL (8.0-11.0); RBC 2.83 10^6/uL (4.36-5.78); RDW-SD 63.3 fL; WBC 6.01 10^3/uL (4.4-10.8)
[2024-11-15 12:58] LABS: Platelet Count 94 10^3/uL (130-400)
[2024-11-15 12:59] LABS: RDW 17.9 % (11.8-14.1)
== END 2024-11-15 02:23 | disposition home or self-care (01) ==
LOC: LOS 02:22
PROVIDERS: PCP Nurse Practitioner Family; Visit Provider Nurse Practitioner Family
DX: K92.2 Gastrointestinal hemorrhage, unspecified (principal)
CPT/HCPCS: 36415; 85027

== ENCOUNTER 2024-11-22 15:00 | Outpatient (CLI) | payer BC, SELFPAY ==
[2024-11-22 12:17] LABS: HCT 26.8 % (40.0-50.0); HGB 8.2 g/dL (13.5-17.5); MCH 29.7 pg (27.0-33.0); MCHC 30.6 % (32.0-36.0); MCV 97 fL (80-95); MPV 9.2 fL (8.0-11.0); Platelet Count 113 10^3/uL (130-400); RBC 2.76 10^6/uL (4.36-5.78); RDW 17.2 % (11.8-14.1); RDW-SD 61.2 fL; WBC 6.26 10^3/uL (4.4-10.8)
== END 2024-11-22 15:01 | disposition home or self-care (01) ==
LOC: LOS 15:01
PROVIDERS: PCP Nurse Practitioner Family; Visit Provider Nurse Practitioner Family
DX: K92.2 Gastrointestinal hemorrhage, unspecified (principal)
CPT/HCPCS: 36415; 85027

== ENCOUNTER 2024-11-29 08:10 | Outpatient (CLI) | payer BC, SELFPAY ==
--- NOTE | 2024-11-29 08:00 | RT.EKG_ITS ---
APPROVED REPORT Exam: Resting ECG Reason for Exam: fluid retention Patient Location: O HR:66 bpm ECG Measurements Heart Rate 66 AXIS IA 171 P 69 QRSd 106 QRS 32 QT 405 T 64 QTc 425 Conclusion Sinus rhythm...normal P axis, V-rate 50- 99 Probable left atrial enlargement...P >50mS, <-0.10mV V1 Otherwise normal ECG
== END 2024-11-29 08:11 | disposition home or self-care (01) ==
LOC: DI.CM 08:11
PROVIDERS: PCP Nurse Practitioner Family; Visit Provider Nurse Practitioner Family
DX: R60.0 Localized edema (principal); I51.7 Cardiomegaly
CPT/HCPCS: 93010

== ENCOUNTER 2024-11-29 08:24 | Outpatient (CLI) | payer BC, SELFPAY ==
[2024-11-29 14:33] LABS: ALT 31 U/L (16-63); AST 28 U/L (15-37); Albumin 3.1 g/dL (3.4-5.0); Alkaline Phosphatase 97 U/L (46-116); Anion Gap 7.3 mmol/L (3-11); BUN 29 mg/dL (7-18); Bilirubin, Total 0.4 mg/dL (0.2-1.0); CO2 28.7 mmol/L (21.0-32.0); Calcium 9.0 mg/dL (8.5-10.1); Chloride 106 mmol/L (98-107); Estimated GFR 42.03 (mL/min/1.73m2); Glucose 103 mg/dL (74-106); Potassium 3.7 mmol/L (3.5-5.1); Sodium 142 mmol/L (136-145); Total Protein 6.4 g/dL (6.4-8.2)
[2024-11-29 14:36] LABS: Iron 41 ug/dL (65-175)
== END 2024-11-29 08:25 | disposition home or self-care (01) ==
LOC: LOS 08:25
PROVIDERS: PCP Nurse Practitioner Family; Referring Provider Nurse Practitioner Family; Visit Provider Nurse Practitioner Family
DX: K92.2 Gastrointestinal hemorrhage, unspecified (principal); C22.9 Malignant neoplasm of liver, not specified as primary or secondary
CPT/HCPCS: 36415; 80053; 83540

== ENCOUNTER 2024-12-01 15:00 | Outpatient (CLI) | payer BC, SELFPAY ==
[2024-12-01 14:31] LABS: HCT 25.5 % (40.0-50.0); HGB 7.7 g/dL (13.5-17.5); MCH 29.2 pg (27.0-33.0); MCHC 30.2 % (32.0-36.0); MCV 97 fL (80-95); MPV 9.5 fL (8.0-11.0); Platelet Count 123 10^3/uL (130-400); RBC 2.64 10^6/uL (4.36-5.78); RDW 15.9 % (11.8-14.1); RDW-SD 56.4 fL; WBC 5.91 10^3/uL (4.4-10.8)
[2024-12-01 15:09] LABS: NT-proBNP 395 pg/mL (<300)
[2024-12-01 15:43] LABS: Anion Gap 9.3 mmol/L (3-11); BUN 35 mg/dL (7-18); CO2 26.7 mmol/L (21.0-32.0); Calcium 9.3 mg/dL (8.5-10.1); Chloride 109 mmol/L (98-107); Estimated GFR 39.39 (mL/min/1.73m2); Glucose 102 mg/dL (74-106); Potassium 4.0 mmol/L (3.5-5.1); Sodium 145 mmol/L (136-145)
== END 2024-12-01 15:01 | disposition home or self-care (01) ==
LOC: LOS 15:02
PROVIDERS: PCP Nurse Practitioner Family; Visit Provider Nurse Practitioner Family
DX: R60.9 Edema, unspecified (principal); M79.89 Other specified soft tissue disorders
CPT/HCPCS: 36415; 80048; 85027; 83880

== ENCOUNTER 2024-12-13 04:08 | Outpatient (CLI) | payer BC, SELFPAY ==
[2024-12-13 14:39] LABS: HCT 24.1 % (40.0-50.0); HGB 7.5 g/dL (13.5-17.5); MCH 28.5 pg (27.0-33.0); MCHC 31.1 % (32.0-36.0); MCV 92 fL (80-95); MPV 9.3 fL (8.0-11.0); Platelet Count 186 10^3/uL (130-400); RBC 2.63 10^6/uL (4.36-5.78); RDW 14.2 % (11.8-14.1); RDW-SD 47.6 fL; WBC 6.51 10^3/uL (4.4-10.8)
== END 2024-12-13 04:09 | disposition home or self-care (01) ==
LOC: LOS 04:08
PROVIDERS: PCP Nurse Practitioner Family; Visit Provider Nurse Practitioner Family
DX: C22.9 Malignant neoplasm of liver, not specified as primary or secondary (principal); K92.2 Gastrointestinal hemorrhage, unspecified; D50.0 Iron deficiency anemia secondary to blood loss (chronic)
CPT/HCPCS: 36415; 85027

== ENCOUNTER 2024-12-14 09:58 | Emergency (ER) | payer BC, SELFPAY ==
[2024-12-14] VITALS (21 sets, daily range): BP systolic 118–149; BP diastolic 44–72; PULSE 60–73; RESP 16–20; TEMP 36.7; O2SAT 95–99
[2024-12-14 10:43] LABS: Abs Immature Grans 0.07 10^3/uL (0.0-0.06); HCT 25.5 % (40.0-50.0); HGB 7.9 g/dL (13.5-17.5); Immature Grans % 1.1 %; MCH 28.0 pg (27.0-33.0); MCHC 31.0 % (32.0-36.0); MCV 90 fL (80-95); MPV 8.6 fL (8.0-11.0); Platelet Count 167 10^3/uL (130-400); RBC 2.82 10^6/uL (4.36-5.78); RDW 14.0 % (11.8-14.1); RDW-SD 46.4 fL; WBC 6.31 10^3/uL (4.4-10.8)
[2024-12-14 10:59] LABS: ALT 30 U/L (16-63); AST 29 U/L (15-37); Albumin 3.1 g/dL (3.4-5.0); Alkaline Phosphatase 90 U/L (46-116); Anion Gap 6.9 mmol/L (3-11); BUN 42 mg/dL (7-18); Bilirubin, Total 0.3 mg/dL (0.2-1.0); CO2 27.1 mmol/L (21.0-32.0); Calcium 8.9 mg/dL (8.5-10.1); Chloride 106 mmol/L (98-107); Estimated GFR 34.93 (mL/min/1.73m2); Glucose 132 mg/dL (74-106); Potassium 4.1 mmol/L (3.5-5.1); Sodium 140 mmol/L (136-145); Total Protein 6.7 g/dL (6.4-8.2)
[2024-12-14 11:03] LABS: INR 1.1 (0.9-1.1); Prothrombin Time 10.6 sec (9.1-11.1)
--- NOTE | 2024-12-14 15:14 | W.ED.GENAD ---
Discharge Plan Disposition Patient Disposition: Home Condition: Stable Discharge Details Clinical Impression: Anemia in chronic illness Primary Care Provider: Melvin Weldon ED Provider: Ijeoma Roberts Home Meds and New Rx's Prescriptions: Continued albuterol sulfate 90 mcg/actuation HFA aerosol inhaler 2 inh inhalation Q6H PRN (Reason: shortness of breath or wheezing) Qty: 18 12RF Breztri Aerosphere 160-9-4.8 mcg/actuation HFA aerosol inhaler 2 inh inhalation BID Qty: 10.7 6RF ferrous sulfate 325 mg (65 mg iron) tablet,delayed release (DR/EC) 325 mg PO DAILY carvedilol [Coreg] 3.125 mg tablet 6.25 mg PO BID Rx Instructions: must administer with a meal/food furosemide [Lasix] 20 mg tablet 20 mg PO DAILY Qty: 90 0RF cholecalciferol (vitamin D3) 50 mcg (2,000 unit) capsule 50 mcg PO DAILY Patient Comments: TAKE 1 CAPSULE BY MOUTH DAILY empagliflozin 10 mg tablet 10 mg PO DAILY ipratropium-albuterol 0.5 mg-3 mg(2.5 mg base)/3 mL solution for nebulization 3 ml inhalation QID PRN (Reason: shortness of breath or wheezing) Qty: 360 4RF sevelamer HCl 800 mg tablet 800 mg PO TID Qty: 270 4RF Rx Instructions: must administer with a meal/food omeprazole 40 mg capsule,delayed release(DR/EC) 40 mg PO DAILY Discharge Instructions Additional Instructions: Please follow-up with Melvin at your scheduled appointment tomorrow You will need a repeat CBC in 1 week Please return immediately should you develop blood in stool or vomitus, weakness, shortness of breath, or should any new concerns arise Referrals: Melvin Weldon, HOME FURNISHINGS SALES REPRESENTATIVE [Primary Care Provider, Medicine] HPI General Date/Time Provider Initiated Documentation: 12/14/24 10:15. HPI Narrative: This 64-year-old male with history of upper GI bleed, hepatic cancer, glomerulonephritis, thrombocytopenia, COPD presents with report of need for blood transfusion. Had a hemoglobin checked last evening that was low and he was told to present to the ED. He is currently asymptomatic he actually states he feels quite well. He denies any shortness of breath, dizziness, fever, or blood in stool. He states that he had a couple polyps removed with a colonoscopy 2 weeks ago. He has not really had any blood in his stool since that time per patient. Related Data Home Medications ?Medication ?Instructions ?Recorded ?Confirmed albuterol sulfate 90 mcg/actuation 2 inh inhalation Q6H PRN shortness 05/09/24 12/14/24 aerosol inhaler of breath or wheezing #18 grams budesonide 160 mcg-glycopyr 9 2 inh inhalation BID #10.7 grams 06/27/24 12/14/24 mcg-formot 4.8 mcg/actuation HFA inhaler (Breztri Aerosphere) ferrous sulfate 325 mg (65 mg 325 mg PO DAILY 09/11/24 12/14/24 iron) tablet,delayed release ipratropium 0.5 mg-albuterol 3 mg 3 ml inhalation QID PRN shortness 09/11/24 12/14/24 (2.5 mg base)/3 mL nebulization of breath or wheezing #360 mL soln cholecalciferol (vitamin D3) 50 50 mcg PO DAILY 09/18/24 12/14/24 mcg (2,000 unit) capsule empagliflozin 10 mg tablet 10 mg PO DAILY 09/18/24 12/14/24 sevelamer HCl 800 mg tablet 800 mg PO TID #270 tabs 10/05/24 12/14/24 omeprazole 40 mg capsule,delayed 40 mg PO DAILY 10/20/24 12/14/24 release carvedilol 3.125 mg tablet (Coreg) 6.25 mg PO BID 11/29/24 12/14/24 furosemide 20 mg tablet (Lasix) 20 mg PO DAILY #90 tabs 12/01/24 12/14/24 Previous Rx's ?Medication ?Instructions ?Recorded albuterol sulfate 90 mcg/actuation 2 inh inhalation Q6H PRN shortness 05/09/24 aerosol inhaler of breath or wheezing #18 grams budesonide 160 mcg-glycopyr 9 2 inh inhalation BID #10.7 grams 06/27/24 mcg-formot 4.8 mcg/actuation HFA inhaler (Breztri Aerosphere) ipratropium 0.5 mg-albuterol 3 mg 3 ml inhalation QID PRN shortness 09/11/24 (2.5 mg base)/3 mL nebulization of breath or wheezing #360 mL soln sevelamer HCl 800 mg tablet 800 mg PO TID #270 tabs 10/05/24 furosemide 20 mg tablet (Lasix) 20 mg PO DAILY #90 tabs 12/01/24 Allergies Allergy/AdvReac Type Severity Reaction Status Date / Time Penicillins Allergy Intermediate Other (See Verified 12/14/24 10:11 Comment) General Stated Complaint: GenMedical ROMELIA: 3 Exam Narrative Exam Narrative: 64-year-old male, alert, oriented, no acute distress no pallor no abdominal tenderness cardiac rate rhythm regular answering questions appropriately Course Vital Signs Vital signs: Vital Signs Temperature 36.7 C 12/14/24 10:12 Pulse 73 12/14/24 10:12 Respiratory Rate 20 12/14/24 10:12 Blood Pressure 120/72 12/14/24 10:12 Pulse Oximetry 95 12/14/24 10:12 Temperature 36.7 C 12/14/24 10:17 Temperature Source Tympanic 12/14/24 10:17 Pulse 60 12/14/24 12:16 Respiratory Rate 16 12/14/24 10:25 Blood Pressure 132/49 L 12/14/24 12:16 Blood Pressure Mean 80 12/14/24 12:16 Blood Pressure Position Sitting 12/14/24 10:17 Pulse Oximetry 97 12/14/24 12:16 Oxygen Delivery Method Room Air 12/14/24 10:17 Oxygen Flow Rate 0 12/14/24 10:17 Pain Level 0 12/14/24 10:17 Lab/Test Results Lab/Test Results: Laboratory Tests Range/Units 12/14/24 12/14/24 10:31 10:46 WBC (4.4-10.8) 10^3/uL 6.31 RBC (4.36-5.78) 10^6/uL 2.82 L Hgb (13.5-17.5) g/dL 7.9 L Hct (40.0-50.0) % 25.5 L MCV (80-95) fL 90 MCH (27.0-33.0) pg 28.0 MCHC (32.0-36.0) % 31.0 L RDW (11.8-14.1) % 14.0 Plt Count (130-400) 10^3/uL 167 MPV (8.0-11.0) fL 8.6 Immature Gran % % 1.1 Neutrophils % % 82.1 Lymphocytes % % 7.9 Monocytes % % 8.7 Eosinophils % % 0.0 Basophils % % 0.2 Nucleated RBC % (0.0-0.3) % 0.0 Absolute Neutrophils (1.2-6.7) 10^3/uL 5.18 Absolute Lymphocytes (1.2-3.4) 10^3/uL 0.50 L Absolute Monocytes (0.1-0.8) 10^3/uL 0.55 Absolute Eosinophils (0.0-0.7) 10^3/uL 0.00 Absolute Basophils (0.0-0.2) 10^3/uL 0.01 PT (9.1-11.1) sec 10.6 INR (0.9-1.1) 1.1 Sodium (136-145) mmol/L 140 Potassium (3.5-5.1) mmol/L 4.1 Chloride (98-107) mmol/L 106 Carbon Dioxide (21.0-32.0) mmol/L 27.1 Anion Gap (3-11) mmol/L 6.9 BUN (7-18) mg/dL 42 H Creatinine (0.70-1.30) mg/dL 2.1 H Est GFR (CKD-EPI 2020) (mL/min/1.73m2) 34.93 Glucose (74-106) mg/dL 132 H Calcium (8.5-10.1) mg/dL 8.9 Total Bilirubin (0.2-1.0) mg/dL 0.3 AST (15-37) U/L 29 ALT (16-63) U/L 30 Alkaline Phosphatase (46-116) U/L 90 Total Protein (6.4-8.2) g/dL 6.7 Albumin (3.4-5.0) g/dL 3.1 L ABO/Rh A Positive Antibody Screen NEGATIVE Medical Decision Making Results: Hemoglobin 7.9 hematocrit 25.5 increased from 7.9 yesterday evening creatinine 2.1 consistent with prior BUN 42 consistent with prior remainder of labs are unremarkable INR 1.1 Assessment and plan: As patient is hemodynamically stable asymptomatic and has an increasing hemoglobin I do not feel patient requires transfusion at this point. Patient feels comfortable with this plan as well. I did speak with Melvin De León, patient's nurse practitioner and she feels comfortable with this plan at this point although she encourages him to return immediately should he have any signs or systems consistent with bleeding. Patient was discharged home in stable condition with stable vitals Quality:SDOH Health Related Social Needs: Health related social needs food insecurity lonely/isolated Health related social needs details N/A PFSH All Active Problems (Updated 12/14/24 @ 12:02 by PHOEBE Mendoza) Anemia in chronic illness (Acute) Hepatic cancer (Acute) Upper GI bleed (Acute ~07/2024) Recurring issue 10/17/24- treated at [facility] [place] Hepatomegaly, not elsewhere classified (Acute) Proteinuria (Acute) Thrombocytopenia (Chronic) Kidney failure (Chronic) Blood loss anemia (Acute) DVT prophylaxis (Acute) Liver mass, right lobe (Acute) Glomerulonephritis (Acute) Lower extremity edema (Acute) R>L Dyspnea on exertion (Acute) Former smoker (Acute) Abnormal CT lung screening (Acute) Gross hematuria (Acute) Family history of prostate cancer in father (Acute) Snoring (Acute) COPD (chronic obstructive pulmonary disease) (Chronic) Edema (Acute) Right leg swelling (Acute) Erectile dysfunction (Acute) Nail dystrophy (Acute) Pincer nail deformity (Acute) Annual physical exam (Acute) Allergic rhinitis (Acute) Tobacco use disorder (Acute) Psoriasis (Chronic 10/21/15) Medical History Dyspnea Family history of colon cancer Impacted cerumen of left ear Nicotine dependence Psoriasis Colon cancer screening Screening cholesterol level Psoriasis Impacted cerumen of right ear (10/14/15) Family History Mother Diabetes Father Neoplasm PROSTATE Sister Neoplasm BREAST Daughter No problems noted. Social History Smoking/Tobacco Use Status: Current-Occasional Tobacco Type: cigarettes Tobacco: How many years used: 40 Quit status: has quit before Second Hand Exposure: Yes Counseling given: provider counseling Smoking risk assessment performed?: Yes Alcohol Intake: current Alcohol Intake frequency: 0-2 drinks per day Alcohol type: hard liquor Details: 6 or more drinks monthly Drug use: Never Substance use type: does not use Counseling provided: none Adopted: No Caregiver/Support person: No Household members: none Housing: house Number of Children: 1 number of grandchildren: 0 Communication Needs: None Education Level: high school Details: 12th Do you need help understanding health information?: Rarely 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 Pets and animals: No Sexually active: Yes Do you think of yourself as: straight/heterosexual Current gender identity: male What is your relationship status?: How often do you talk on the phone with friends or family?: three or more times per week How often do you get together with friends or relatives?: once per week How often do you attend samaritan or buddhism services?: 1-3 times per year Do you belong to any clubs or organized social groups?: no Panel score (0-1 are the most socially isolated patients): 1 What type of physical activity do you participate in: none Frequency: does not exercise Jeanna/Jain: None Special jeanna needs: No Seatbelt use: always Helmet use: No Drive intox or ride w/intox medical driver: No Firearms in home: Yes Firearms unloaded and locked: Yes Do you feel safe at home: Yes Victim of physical abuse: No Victim of emotional abuse: No Victim of sexual abuse: No Would you like helpful sources: No 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 Lives in [place]
== END 2024-12-14 12:23 | disposition home or self-care (01) ==
PROVIDERS: Emergency Provider Physician Assistant; PCP Nurse Practitioner Family
DX: Z59.41 Food insecurity; Z60.8 Other problems related to social environment; Z87.19 Personal history of other diseases of the digestive system; D63.8 Anemia in other chronic diseases classified elsewhere; C22.9 Malignant neoplasm of liver, not specified as primary or secondary
CPT/HCPCS: 99283; 99282; 80053; 86850; 86900; 86901; 85025; 85610

== ENCOUNTER 2024-12-27 03:35 | Outpatient (CLI) | payer OTHER, SELFPAY ==
[2024-12-27 14:09] LABS: Abs Immature Grans 0.02 10^3/uL (0.0-0.06); HCT 24.8 % (40.0-50.0); HGB 7.5 g/dL (13.5-17.5); Immature Grans % 0.3 %; MCH 26.8 pg (27.0-33.0); MCHC 30.2 % (32.0-36.0); MCV 89 fL (80-95); MPV 9.7 fL (8.0-11.0); Platelet Count 109 10^3/uL (130-400); RBC 2.80 10^6/uL (4.36-5.78); RDW 14.4 % (11.8-14.1); RDW-SD 46.4 fL; WBC 5.92 10^3/uL (4.4-10.8)
[2024-12-27 14:24] LABS: ALT 29 U/L (16-63); AST 24 U/L (15-37); Albumin 3.0 g/dL (3.4-5.0); Alkaline Phosphatase 75 U/L (46-116); Anion Gap 9.8 mmol/L (3-11); BUN 29 mg/dL (7-18); Bilirubin, Total 0.3 mg/dL (0.2-1.0); CO2 28.2 mmol/L (21.0-32.0); Calcium 8.9 mg/dL (8.5-10.1); Chloride 104 mmol/L (98-107); Estimated GFR 48.41 (mL/min/1.73m2); Glucose 114 mg/dL (74-106); Potassium 3.5 mmol/L (3.5-5.1); Sodium 142 mmol/L (136-145); Total Protein 6.2 g/dL (6.4-8.2)
[2024-12-29 08:37] LABS: PEth 16:0/18:1(POPEth) <10 ng/mL (Cutoff: 10); PEth 16:0/18:2(PLPEth) <10 ng/mL (Cutoff: 10)
== END 2024-12-27 03:36 | disposition home or self-care (01) ==
LOC: LOS 03:36
PROVIDERS: Internal Medicine; PCP Nurse Practitioner Family; Visit Provider Nurse Practitioner Family
DX: C22.9 Malignant neoplasm of liver, not specified as primary or secondary (principal)
CPT/HCPCS: 36415; 80053; 80321; 82105; 85025

== ENCOUNTER 2025-01-03 00:04 | Outpatient (CLI) | payer OTHER, SELFPAY ==
[2025-01-03 14:33] LABS: HCT 26.2 % (40.0-50.0); HGB 8.0 g/dL (13.5-17.5); MCH 26.9 pg (27.0-33.0); MCHC 30.5 % (32.0-36.0); MCV 88 fL (80-95); MPV 9.5 fL (8.0-11.0); Platelet Count 136 10^3/uL (130-400); RBC 2.97 10^6/uL (4.36-5.78); RDW 16.0 % (11.8-14.1); RDW-SD 49.2 fL; WBC 6.04 10^3/uL (4.4-10.8)
== END 2025-01-03 00:05 | disposition home or self-care (01) ==
LOC: LOS 00:04
PROVIDERS: PCP Nurse Practitioner Family; Visit Provider Nurse Practitioner Family
DX: C22.9 Malignant neoplasm of liver, not specified as primary or secondary (principal); K92.2 Gastrointestinal hemorrhage, unspecified; D50.0 Iron deficiency anemia secondary to blood loss (chronic)
CPT/HCPCS: 36415; 85027

== ENCOUNTER 2025-01-10 01:45 | Outpatient (CLI) | payer OTHER, SELFPAY ==
[2025-01-10 09:08] LABS: HCT 30.1 % (40.0-50.0); HGB 9.5 g/dL (13.5-17.5); MCH 28.0 pg (27.0-33.0); MCHC 31.6 % (32.0-36.0); MCV 89 fL (80-95); MPV 9.4 fL (8.0-11.0); Platelet Count 148 10^3/uL (130-400); RBC 3.39 10^6/uL (4.36-5.78); RDW 16.6 % (11.8-14.1); RDW-SD 53.9 fL; WBC 6.23 10^3/uL (4.4-10.8)
[2025-01-10 09:48] LABS: Anion Gap 9.6 mmol/L (3-11); BUN 33 mg/dL (7-18); CO2 28.4 mmol/L (21.0-32.0); Calcium 9.1 mg/dL (8.5-10.1); Chloride 102 mmol/L (98-107); Estimated GFR 39.39 (mL/min/1.73m2); Glucose 110 mg/dL (74-106); Potassium 3.6 mmol/L (3.5-5.1); Sodium 140 mmol/L (136-145)
[2025-01-12 19:16] LABS: Cystatin C, S 2.67 mg/L
== END 2025-01-10 01:46 | disposition home or self-care (01) ==
PROVIDERS: Internal Medicine; PCP Nurse Practitioner Family; Visit Provider Nurse Practitioner Family
DX: Z01.818 Encounter for other preprocedural examination (principal)
CPT/HCPCS: 36415; 80048; 82610; 85027

== ENCOUNTER 2025-01-12 00:03 | Outpatient (RCR) | payer OTHER, SELFPAY ==
[2024-12-29] MEDS: IRON SUCROSE COMPLEX 300 MG in Normal Saline 250 ML 176.667 MG IVPB (09:13)
[2024-12-29] MEDS: Normal Saline Flush 10 ML SYR IVP (09:16)
[2024-12-29 15:14] LABS: Abs Immature Grans 0.04 10^3/uL (0.0-0.06); HCT 26.3 % (40.0-50.0); HGB 7.9 g/dL (13.5-17.5); Immature Grans % 0.5 %; MCH 26.8 pg (27.0-33.0); MCHC 30.0 % (32.0-36.0); MCV 89 fL (80-95); MPV 10.4 fL (8.0-11.0); Platelet Count 119 10^3/uL (130-400); RBC 2.95 10^6/uL (4.36-5.78); RDW 14.5 % (11.8-14.1); RDW-SD 46.8 fL; WBC 7.32 10^3/uL (4.4-10.8)
[2025-01-05] MEDS: Normal Saline Flush 10 ML SYR IVP (09:14)
[2025-01-05] MEDS: IRON SUCROSE COMPLEX 300 MG in Normal Saline 250 ML 176.667 MG IVPB (09:14)
[2025-01-12] MEDS: IRON SUCROSE COMPLEX 300 MG in Normal Saline 250 ML 176.667 MG IVPB (08:20)
[2025-01-12] MEDS: Normal Saline Flush 10 ML SYR IVP (08:20)
== END 2025-01-19 23:59 | disposition home or self-care (01) ==
LOC: INF 00:03
PROVIDERS: Internal Medicine; PCP Nurse Practitioner Family; Visit Provider Nurse Practitioner Family
DX: N18.30 Chronic kidney disease, stage 3 unspecified (principal); D63.1 Anemia in chronic kidney disease; D50.9 Iron deficiency anemia, unspecified
CPT/HCPCS: 36415; 96365; 96366; 85025; J1756

== ENCOUNTER 2025-01-17 01:57 | Outpatient (CLI) | payer OTHER, SELFPAY ==
[2025-01-17 13:59] LABS: HCT 28.1 % (40.0-50.0); HGB 8.5 g/dL (13.5-17.5); MCH 27.2 pg (27.0-33.0); MCHC 30.2 % (32.0-36.0); MCV 90 fL (80-95); MPV 9.8 fL (8.0-11.0); Platelet Count 131 10^3/uL (130-400); RBC 3.13 10^6/uL (4.36-5.78); RDW 16.9 % (11.8-14.1); RDW-SD 55.5 fL; WBC 5.14 10^3/uL (4.4-10.8)
[2025-01-18 18:25] LABS: HBs Antibody, Quant <3.1 mIU/mL (See Note); Hepatitis B Surface Ab Negative (See Note)
[2025-01-18 19:13] LABS: Hep A Total Ab w Rflx IgM Negative (Negative)
== END 2025-01-17 01:58 | disposition home or self-care (01) ==
LOC: LOS 01:57
PROVIDERS: PCP Nurse Practitioner Family; Visit Provider Nurse Practitioner Family
DX: C22.9 Malignant neoplasm of liver, not specified as primary or secondary (principal)
CPT/HCPCS: 36415; 85027; 86706; 86709

== ENCOUNTER 2025-01-23 01:21 | Outpatient (CLI) | payer OTHER, SELFPAY ==
[2025-01-23 14:11] LABS: HCT 28.6 % (40.0-50.0); HGB 8.8 g/dL (13.5-17.5); MCH 27.8 pg (27.0-33.0); MCHC 30.8 % (32.0-36.0); MCV 90 fL (80-95); MPV 9.1 fL (8.0-11.0); Platelet Count 138 10^3/uL (130-400); RBC 3.17 10^6/uL (4.36-5.78); RDW 16.5 % (11.8-14.1); RDW-SD 54.5 fL; WBC 4.86 10^3/uL (4.4-10.8)
[2025-01-25 20:54] LABS: Penicillin G IgE <0.10 kU/L (<0.70); Penicillin V IgE <0.10 kU/L (<0.70)
== END 2025-01-23 01:22 | disposition home or self-care (01) ==
LOC: LOS 01:21
PROVIDERS: PCP Nurse Practitioner Family; Visit Provider Nurse Practitioner Family
DX: Z88.0 Allergy status to penicillin (principal)
CPT/HCPCS: 36415; 85027; 86003

== ENCOUNTER 2025-02-07 03:30 | Outpatient (CLI) | payer OTHER, SELFPAY ==
[2025-02-07 14:06] LABS: HCT 32.7 % (40.0-50.0); HGB 10.2 g/dL (13.5-17.5); MCH 27.3 pg (27.0-33.0); MCHC 31.2 % (32.0-36.0); MCV 88 fL (80-95); MPV 9.6 fL (8.0-11.0); Platelet Count 131 10^3/uL (130-400); RBC 3.73 10^6/uL (4.36-5.78); RDW 15.6 % (11.8-14.1); RDW-SD 50.2 fL; WBC 6.13 10^3/uL (4.4-10.8)
== END 2025-02-07 03:31 | disposition home or self-care (01) ==
LOC: LOS 03:30
PROVIDERS: PCP Nurse Practitioner Family; Visit Provider Nurse Practitioner Family
DX: C22.9 Malignant neoplasm of liver, not specified as primary or secondary (principal)
CPT/HCPCS: 36415; 85027

== ENCOUNTER 2025-02-21 01:31 | Outpatient (CLI) | payer OTHER, SELFPAY ==
[2025-02-21 15:32] LABS: Abs Immature Grans 0.02 10^3/uL (0.0-0.06); HCT 35.0 % (40.0-50.0); HGB 10.9 g/dL (13.5-17.5); Immature Grans % 0.3 %; MCH 27.3 pg (27.0-33.0); MCHC 31.1 % (32.0-36.0); MCV 88 fL (80-95); MPV 9.8 fL (8.0-11.0); Platelet Count 155 10^3/uL (130-400); RBC 4.00 10^6/uL (4.36-5.78); RDW 15.3 % (11.8-14.1); RDW-SD 49.5 fL; WBC 7.00 10^3/uL (4.4-10.8)
[2025-02-21 15:46] LABS: Glucose 100 mg/dL (Negative)
[2025-02-21 15:52] LABS: WBC Negative HPF (0-5)
[2025-02-21 15:53] LABS: C & S Indicated? No
== END 2025-02-21 01:32 | disposition home or self-care (01) ==
LOC: LOS 01:31
PROVIDERS: PCP Nurse Practitioner Family; Visit Provider Nurse Practitioner Family
DX: E78.5 Hyperlipidemia, unspecified (principal); R80.9 Proteinuria, unspecified
CPT/HCPCS: 81003; 81015; 82043; 82570; 85025

== ENCOUNTER 2025-02-28 00:56 | Outpatient (CLI) | payer OTHER, SELFPAY ==
[2025-02-28 14:23] LABS: HCT 36.7 % (40.0-50.0); HGB 11.7 g/dL (13.5-17.5); MCH 27.7 pg (27.0-33.0); MCHC 31.9 % (32.0-36.0); MCV 87 fL (80-95); MPV 9.8 fL (8.0-11.0); Platelet Count 143 10^3/uL (130-400); RBC 4.23 10^6/uL (4.36-5.78); RDW 15.0 % (11.8-14.1); RDW-SD 47.7 fL; WBC 8.03 10^3/uL (4.4-10.8)
[2025-02-28 18:33] LABS: ALT 26 U/L (10-49); AST 38 U/L (<34); Albumin 4.0 g/dL (3.2-5.0); Alkaline Phosphatase 89 U/L (46-116); Anion Gap 10.1 mmol/L (3-11); BUN 29 mg/dL (9-23); Bilirubin, Total 0.4 mg/dL (0.2-1.2); CO2 25.9 mmol/L (20.0-31.0); Calcium 10.7 mg/dL (8.3-10.6); Chloride 104 mmol/L (98-107); Cholesterol 89 mg/dL (<200); Glucose 95 mg/dL (74-106); HDL Cholesterol 35 mg/dL (>40); Potassium 3.7 mmol/L (3.5-5.1); Sodium 140 mmol/L (136-145); Total Protein 7.0 g/dL (5.7-8.2)
== END 2025-02-28 00:57 | disposition home or self-care (01) ==
LOC: LOS 00:56
PROVIDERS: PCP Nurse Practitioner Family; Visit Provider Nurse Practitioner Family
DX: E78.5 Hyperlipidemia, unspecified (principal)
CPT/HCPCS: 36415; 80053; 80061; 85027

== ENCOUNTER 2025-03-13 07:10 | Outpatient (CLI) | payer OTHER, SELFPAY ==
[2025-03-13 13:45] LABS: HCT 35.7 % (40.0-50.0); HGB 11.5 g/dL (13.5-17.5); MCH 27.7 pg (27.0-33.0); MCHC 32.2 % (32.0-36.0); MCV 86 fL (80-95); MPV 9.9 fL (8.0-11.0); Platelet Count 123 10^3/uL (130-400); RBC 4.15 10^6/uL (4.36-5.78); RDW 14.7 % (11.8-14.1); RDW-SD 46.6 fL; WBC 7.22 10^3/uL (4.4-10.8)
== END 2025-03-13 07:11 | disposition home or self-care (01) ==
LOC: LOS 07:10
PROVIDERS: PCP Nurse Practitioner Family; Visit Provider Nurse Practitioner Family
DX: C22.9 Malignant neoplasm of liver, not specified as primary or secondary (principal); K92.2 Gastrointestinal hemorrhage, unspecified; D50.0 Iron deficiency anemia secondary to blood loss (chronic)
CPT/HCPCS: 36415; 85027

== ENCOUNTER 2025-03-21 02:35 | Outpatient (CLI) | payer OTHER, SELFPAY ==
[2025-03-21 09:44] LABS: Abs Immature Grans 0.01 10^3/uL (0.0-0.06); HCT 38.3 % (40.0-50.0); HGB 12.5 g/dL (13.5-17.5); Immature Grans % 0.1 %; MCH 27.6 pg (27.0-33.0); MCHC 32.6 % (32.0-36.0); MCV 85 fL (80-95); MPV 9.2 fL (8.0-11.0); Platelet Count 135 10^3/uL (130-400); RBC 4.53 10^6/uL (4.36-5.78); RDW 14.6 % (11.8-14.1); RDW-SD 44.9 fL; WBC 6.81 10^3/uL (4.4-10.8)
[2025-03-21 10:21] LABS: ALT 26 U/L (10-49); AST 37 U/L (<34); Albumin 4.0 g/dL (3.2-5.0); Alkaline Phosphatase 98 U/L (46-116); Anion Gap 8.4 mmol/L (3-11); BUN 27 mg/dL (9-23); Bilirubin, Total 0.5 mg/dL (0.2-1.2); CO2 27.6 mmol/L (20.0-31.0); Calcium 10.1 mg/dL (8.3-10.6); Chloride 106 mmol/L (98-107); Cholesterol 118 mg/dL (<200); Glucose 104 mg/dL (74-106); HDL Cholesterol 36 mg/dL (>or=40); Potassium 3.9 mmol/L (3.5-5.1); Sodium 142 mmol/L (136-145); Total Protein 7.0 g/dL (5.7-8.2)
== END 2025-03-21 02:36 | disposition home or self-care (01) ==
LOC: LBO 02:35
PROVIDERS: PCP Nurse Practitioner Family; Visit Provider Nurse Practitioner Family
DX: E78.5 Hyperlipidemia, unspecified (principal); C22.9 Malignant neoplasm of liver, not specified as primary or secondary; K92.2 Gastrointestinal hemorrhage, unspecified; D50.0 Iron deficiency anemia secondary to blood loss (chronic)
CPT/HCPCS: 36415; 80053; 80061; 85025